=== PATIENT | female | born 1950 | race Caucasian/White ===

== ENCOUNTER 2016-09-11 12:33 | Emergency (ER) | payer BC ==
[~2016-09-11] VITALS: Ht 160 cm; Wt 52.5 kg
[~2016-09-11 12:33] MED LIST: ARFO15NE IN; ATRINSX INH; B-COTAB18 PO; BUPR150T7 PO; CARV3.122 PO; CARV6.252 PO; CHLO12TA2 PO; FAMO20TA11 PO; IPRA1AER2 INH; LOSA1TAB38 PO; MONT1TAB5 PO; MULT-506 PO; OYST500T47 PO; PYRI100T4 PO; SIMV20TA2 PO; SPRIN/30 INH; VENL150C56 PO; VITAMIN B12 PO
[2016-09-11 12:45] VITALS: TEMP 36.9; Ht 160 cm; Wt 52.5 kg
[2016-09-11] MEDS ORDERED: ALBUT/IPRATROP 3MG/0.5MG NEB 3 ML VIAL INH STA ×2 (13:54→15:02)
--- NOTE | 2016-09-11 14:08 | DIAGNOSTIC IMAGING REPORT ---
CHEST ONE VIEW PORTABLE CLINICAL HISTORY: Shortness of breath, weakness. COMPARISON STUDY: 03/14/2016 FINDINGS: The heart is normal in size. There is a left subclavian pacer/defibrillator present. There is no failure. There is no focal pulmonary consolidation. There are no pleural effusions.[ IMPRESSION: No active disease in the chest. Electronically signed by: Kvng Bess M.D. 09/11/2016 2:07 PM Dictated Date/Time: 09/11/2016 2:06 PM
[2016-09-11] MEDS ORDERED: FLUT0.15 NAE (14:21)
[2016-09-11] MEDS ORDERED: CYAN100020 PO (14:21)
[2016-09-11 14:39] VITALS: O2SAT 97
[2016-09-11 14:50] LABS: BASO % 0.1 %; BASO ABS # 0.01 K/uL (0-0.2); COMPLETE YES; EOS % 0.2 %; HEMATOCRIT 45.6 % (37-47); IG% 0.4 %; LYMPH % 7.2 %; LYMPH ABS # 0.68 K/uL (1.2-3.4); MEAN CORPUSCULAR HEMOGLOBIN 33.8 pg (25-34); MEAN CORPUSCULAR HGB CONC 34.9 g/dl (32-36); MEAN PLATELET VOLUME 9.8 fL (7.4-10.4); MONO % 1.9 %; NEUT % 90.2 %; PLATELET COUNT 288 K/uL (130-400); WHITE BLOOD COUNT 9.46 K/uL (4.8-10.8)
--- NOTE | 2016-09-11 14:57 | EMERGENCY ROOM VISIT NOTE ---
History First contact with patient: 14:23 Chief Complaint: RESPIRATORY PROBLEMS Stated Complaint: BREATHING PROBLEMS, WEAKNESS, SENT BY History of Present Illness The patient is a 66 year old female who presents to the Emergency Room with COPD and cardiomyopathy who presents with worsening shortness of breath despite being on steroids for COPD exacerbation. She reports her symptoms started prior to 09/06 and she went to see her PCP on the , who prescribed her a 16 day prednisone taper starting at 40mg and Levaquin. She is a week into her therapy and noticed her breathing still doesn't feel right. She is not wheezing and is not short of breath at rest, but when she moves around she feels worse. She had previously been on Brovana, then stopped it and now restarted it about 2 days ago. She denies any chest pain. Review of Systems See HPI for pertinent positives & negatives. A total of 10 systems reviewed and were otherwise negative. Past Medical/Surgical History Medical Problems: (1) Cardiomyopathy (2) Colitis, acute (3) COPD (chronic obstructive pulmonary disease) (4) Hematochezia (5) Hyperlipidemia (6) Neurosurgical procedure (7) Pneumonia (8) Sinusitis Surgical Problems: (1) Hx of appendectomy (2) S/P ICD (internal cardiac defibrillator) procedure Family History Cancer FATHER FH: COPD (chronic obstructive pulmonary disease) SISTER FH: cancer FH: heart disease BROTHER SISTER SISTER FH: kidney disease MOTHER Social History Smoking Status: Former Smoker Marital Status: Housing Status: lives with family Occupation Status: employed Current/Historical Medications Scheduled Amoxicillin & Pot Clavulanate (Augmentin 875-125 mg), 1 TAB PO BID Arformoterol Tartrate (Brovana), 15 MCG IN BID B-Complex Vitamins (Vitamin B Complex), 1 TAB PO QAM Bupropion Hcl (Wellbutrin Sr), 150 MG PO QAM Chlorpheniramine Maleate (Chlor-Trimeton Allergy), 1 TAB PO QAM Cyanocobalamin (Vitamin B12), 2,500 MCG PO DAILY Famotidine (Pepcid), 20 MG PO HS Fluticasone Propionate (Nasal) (Flonase Allergy Relief), 1 SPRAY ROXY BID Ipratropium [place] (Atrovent 0.02% Soln), 1 DOSE INH BID Losartan Potassium (Cozaar), 100 MG PO HS Montelukast Sodium (Montelukast Sodium), 10 MG PO DAILY AFTERNOON Multivitamin (Multivitamin), 1 TAB PO QPM Oyster Shell (Calcium), 1 TAB PO QAM Pyridoxine (Vitamin B6), 100 MG PO QPM Simvastatin (Zocor), 20 MG PO QPM Tiotropium [place] (Spiriva Handihaler), 1 CAP INH DAILY AFTERNOON Venlafaxine Hcl (Effexor Extended Rel), 150 MG PO QAM Scheduled PRN Ipratropium-Albuterol (Combivent Respimat), 1 PUFFS INH QID PRN for Shortness of Breath Allergies Coded Allergies: Galantamine (Verified Allergy, Unknown, "WENT IN TO SHOCK", 09/11/16) Midazolam (Verified Adverse Reaction, Intermediate, confusion WITH HIGH DOSE AND DECREASED BP, 09/11/16) over 4 ml pt confused for a week after Moxifloxacin (Verified Adverse Reaction, Mild, DIZZY, NAUSEA, 09/11/16) Physical Exam Vital Signs Date Time Temp Pulse Resp B/P Pulse Ox O2 Delivery O2 Flow Rate FiO2 09/11/16 16:27 85 18 139/58 96 Room Air 09/11/16 15:29 83 18 148/59 100 Room Air 09/11/16 14:39 97 Room Air 09/11/16 14:00 86 09/11/16 13:53 85 21 125/62 97 Room Air 09/11/16 13:52 97 Room Air 09/11/16 12:49 95 Room Air 09/11/16 12:45 36.9 81 18 119/68 95 Room Air Physical Exam GENERAL: Awake, alert, well-appearing, in no acute distress HENT: Normocephalic, atraumatic. Oropharynx unremarkable. EYES: Normal conjunctiva. Sclera non-icteric. NECK: Supple. No nuchal rigidity. FROM. No JVD. RESPIRATORY: Clear to auscultation. No wheeze, crackles, or rales. CARDIAC: Regular rate, normal rhythm. Extremities warm and well perfused. Pulses equal. ABDOMEN: Soft, non-distended. No tenderness to palpation. No rebound or guarding. No masses. RECTAL: Deferred. MUSCULOSKELETAL: Chest examination reveals no tenderness. The back is symmetrical on inspection without obvious abnormality. There is no CVA tenderness to palpation. No joint edema. LOWER EXTREMITIES: Calves are equal size bilaterally and non-tender. No edema. No discoloration. NEURO: Normal sensorium. No sensory or motor deficits noted. SKIN: No rash or jaundice noted. Medical Decision & Procedures Laboratory Results 09/11/16 14:30 Red Blood Count 4.70, Mean Corpuscular Volume 97.0, Mean Corpuscular Hemoglobin 33.8, Mean Corpuscular Hemoglobin Concent 34.9, Mean Platelet Volume 9.8, Neutrophils (%) (Auto) 90.2, Lymphocytes (%) (Auto) 7.2, Monocytes (%) (Auto) 1.9, Eosinophils (%) (Auto) 0.2, Basophils (%) (Auto) 0.1, Neutrophils # (Auto) 8.53, Lymphocytes # (Auto) 0.68, Monocytes # (Auto) 0.18, Eosinophils # (Auto) 0.02, Basophils # (Auto) 0.01 09/11/16 14:30 Test 09/11/16 14:30 09/11/16 14:37 White Blood Count 9.46 K/uL (4.8-10.8) Red Blood Count 4.70 M/uL (4.2-5.4) Hemoglobin 15.9 g/dL (12.0-16.0) Hematocrit 45.6 % (37-47) Mean Corpuscular Volume 97.0 fL (80-100) Mean Corpuscular Hemoglobin 33.8 pg (25-34) Mean Corpuscular Hemoglobin Concent 34.9 g/dl (32-36) Platelet Count 288 K/uL (130-400) Mean Platelet Volume 9.8 fL (7.4-10.4) Neutrophils (%) (Auto) 90.2 % Lymphocytes (%) (Auto) 7.2 % Monocytes (%) (Auto) 1.9 % Eosinophils (%) (Auto) 0.2 % Basophils (%) (Auto) 0.1 % Neutrophils # (Auto) 8.53 K/uL (1.4-6.5) Lymphocytes # (Auto) 0.68 K/uL (1.2-3.4) Monocytes # (Auto) 0.18 K/uL (0.11-0.59) Eosinophils # (Auto) 0.02 K/uL (0-0.5) Basophils # (Auto) 0.01 K/uL (0-0.2) RDW Standard Deviation 48.0 fL (36.4-46.3) RDW Coefficient of Variation 13.3 % (11.5-14.5) Immature Granulocyte % (Auto) 0.4 % Immature Granulocyte # (Auto) 0.04 K/uL (0.00-0.02) Prothrombin Time 11.3 SECONDS (9.0-12.0) Prothromb Time International Ratio 1.1 (0.9-1.1) Activated Partial Thromboplast Time 23.4 SECONDS (21.0-31.0) Partial Thromboplastin Ratio 0.9 Anion Gap 9.0 mmol/L (3-11) Est Creatinine Clear Calc Drug Dose 61.8 ml/min Estimated GFR () 99.7 Estimated GFR (Non- 86.1 BUN/Creatinine Ratio 12.4 (10-20) Calcium Level 10.6 mg/dl (8.5-10.1) Total Bilirubin 0.3 mg/dl (0.2-1) Aspartate Amino Transf (AST/SGOT) 21 U/L (15-37) Alanine Aminotransferase (ALT/SGPT) 28 U/L (12-78) Alkaline Phosphatase 56 U/L (45-117) Total Creatine Kinase 33 U/L (26-192) Creatine Kinase MB 1.4 ng/ml (0.5-3.6) Creatine Kinase MB Ratio 4.2 (0-3.0) Troponin I < 0.015 ng/ml (0-0.045) Total Protein 7.4 gm/dl (6.4-8.2) Albumin 3.9 gm/dl (3.4-5.0) Globulin 3.5 gm/dl (2.5-4.0) Albumin/Globulin Ratio 1.1 (0.9-2) Bedside Troponin I 0.000 ng/ml (0-0.045) Medications Administered Medications (Trade) Dose Ordered Sig/Saige Route Start Time Stop Time Status Last Admin Dose Admin Methylprednisolone Sodium Succinate (Solu-Medrol IV) 125 mg NOW STAT IV 09/11/16 15:02 09/11/16 15:03 DC 09/11/16 15:19 125 MG Albuterol/ Ipratropium (Duoneb) 3 ml ONE STAT INH 09/11/16 15:02 09/11/16 15:03 DC 09/11/16 15:20 3 ML ED Course 2:34PM: I evaluated the patient in room A12. A complete history and physical were performed. 3:00PM: I called her Machine Cutter's office and discussed the case with Dalton Lara PA-C. He recommended giving her a Duoneb, Solumedrol 125mg IV, continuing her PO steroids after that, and her to follow up in the office in 1 week. 4:20PM: The patient was discharged in good condition home. Medical Decision 66 yo F with chronic COPD and cardiomyopathy who presents with shortness of breath. Differential includes: pneumonia, silent micro-aspirations, mucus plugging, pulmonary edema, or bronchospasm. She did report her symptoms felt "different" with a new type of right sided chest pain. For this reason a CT was completed to evaluate for PE. She had an IV placed and labs drawn. Her CXR was normal. Her labwork was unremarkable. She felt better after Solumedrol and Duoneb. She reported she has previously been resistant to Levaquin in the past so her antibiotic was changed to Augmentin. She was discharged home in good condition with followup with Pulmonology within the week. Impression Primary Impression: Shortness of breath Departure Information Dispostion Home / Self-Care Condition GOOD Prescriptions Amoxicillin & Pot Clavulanate (Augmentin 875-125 mg) 1 Tab Tab 1 TAB PO BID for 7 Days, #14 TAB Prov: Courtney Elena MD 09/11/16 Referrals Lakisha Kothari DO (PCP) Patient Instructions My [facility]
[2016-09-11 15:02] LABS: INR 1.1 (0.9-1.1); PARTIAL THROMBOPLASTIN RATIO 0.9; PROTHROMBIN TIME (PATIENT) 11.3 SECONDS (9.0-12.0)
[2016-09-11] MEDS ORDERED: METHYLPREDNISOLONE 125 MG VIAL IV STA (15:02)
[2016-09-11 15:13] LABS: BUN/CREATININE RATIO 12.4 (10-20); CALCIUM 10.6 mg/dl (8.5-10.1); CREATININE 0.72 mg/dl (0.60-1.20); POTASSIUM 3.9 mmol/L (3.5-5.1)
[2016-09-11 15:15] LABS: ALB/GLOB RATIO 1.1 (0.9-2)
[2016-09-11 15:17] LABS: CKMB/CK RATIO 4.2 (0-3.0)
[2016-09-11] MEDS ORDERED: OPTIRAY 320 IV PRN (16:00)
[2016-09-11 16:27] VITALS: BP 139/58; PULSE 85; O2SAT 96
--- NOTE | 2016-09-11 16:32 | DIAGNOSTIC IMAGING REPORT ---
CT ANGIOGRAM OF THE CHEST CLINICAL HISTORY: Right-sided chest pain. Shortness of breath. COMPARISON STUDY: CT scan dated 04/03/2016, chest x-ray dated 09/11/2006 TECHNIQUE: Following the IV administration of 82 mL of Optiray-320, CT angiogram of the thorax was performed from the thoracic inlet to the lung bases utilizing the pulmonary embolus protocol. Images are reviewed in the axial, sagittal, and coronal planes. IV contrast was administered without complication. MIP imaging was performed. CT DOSE: 197.97 mGy.cm FINDINGS: There is a multinodular thyroid gland. The largest nodule measures 14 mm. There are left renal hypodensities, likely represent cysts. The largest measures 24 mm. No pathologically enlarged axillary mediastinal or hilar lymph nodes were visualized. There was no evidence of thoracic aortic dilatation. There were no pulmonary artery filling defects to indicate acute pulmonary embolism. No pleural effusions are visualized. There is pulmonary emphysema. There is no focal pulmonary consolidation. There is right upper lobe scarring. IMPRESSION: 1. No CT evidence of acute pulmonary embolism 2. Emphysema 3. No evidence of focal pulmonary consolidation Electronically signed by: Kvng Bess M.D. 09/11/2016 4:31 PM Dictated Date/Time: 09/11/2016 4:26 PM
[2016-09-11] MEDS ORDERED: AMOX875T PO (16:47)
--- NOTE | 2016-09-12 23:15 | EMERGENCY ROOM VISIT NOTE ---
ED Visit Note First contact with patient: 14:23 I have personally evaluated this patient examined her and reviewed the pertinent labs and data. I have discussed the case with the resident physician mri assistant and agree with the plan. Please refer to the PA note This patient comes in after having continuing shortness of breath. She's been placed on steroids and has chronic inhalers. She looks well on my exam and has good air movement she appears in no respiratory distress. She did receive an nebulized treatment and is feeling comfortable. She's not hypoxemic. Chest x- ray does not suggest congestive heart failure, pneumonia, pneumothorax. Her EKG looks nonischemic. She has no elevated white count or anything to suggest sepsis. She has no electrolyte or metabolic abnormalities. We did do a chest CT after I discussed the risk and benefits with the patient and she has no evidence of PE. The resident has discussed the case with her vice president process as well who has given recommendations and the patient will be discharged home with follow-up closely. The patient and her are happy with the plan and she will be discharged to home.
[2016-12-06] MEDS ORDERED: CARV6.252 PO (11:30)
[2016-12-06] MEDS ORDERED: MUCINEX PO (11:30)
[2016-12-06] MEDS ORDERED: PRED10TA PO (11:30)
[2016-12-06] MEDS ORDERED: ERYT250T PO (11:30)
[2016-12-06] MEDS ORDERED: CALC600T9 PO (11:30)
[2016-12-06] MEDS ORDERED: ATRINSX PO (11:30)
[2016-12-06] MEDS ORDERED: CARV3.12 PO (11:30)
[2017-02-18] MEDS ORDERED: SIMV20TA2 PO (08:59)
[2017-02-18] MEDS ORDERED: GUAI1TAB69 PO (08:59)
[2017-02-18] MEDS ORDERED: PRED-301 PO (08:59)
[2017-02-18] MEDS ORDERED: MOME220A INH (08:59)
[2017-02-25] MEDS ORDERED: NICO4GUM7 PO (12:13)
== END 2016-09-11 17:02 | disposition home or self-care (01) ==
LOC: C.EDB 12:34 → C.EDA 17:02
DX: R06.02 Shortness of breath (principal); J44.9 Chronic obstructive pulmonary disease, unspecified; I42.9 Cardiomyopathy, unspecified; E78.5 Hyperlipidemia, unspecified; Z95.810 Presence of automatic (implantable) cardiac defibrillator; Z79.899 Other long term (current) drug therapy; Z98.890 Other specified postprocedural states; Z87.891 Personal history of nicotine dependence; Z88.8 Allergy status to other drugs, medicaments and biological substances; Z80.9 Family history of malignant neoplasm, unspecified; Z82.49 Family history of ischemic heart disease and other diseases of the circulatory system; Z84.1 Family history of disorders of kidney and ureter

== ENCOUNTER 2016-10-04 08:30 | Inpatient (IN) | payer BC, OTHER ==
[2016-10-04] VITALS (10 sets, daily range): BP systolic 121–139; BP diastolic 53–81; PULSE 75–87; TEMP 36.1–36.7; O2SAT 93–100; Ht 160 cm; Wt 51.3 kg
[~2016-10-04] VITALS: Ht 160 cm; Wt 51.3 kg
[~2016-10-04 08:30] MED LIST changes: -CARV3.122 PO; -CARV6.252 PO; +CYAN100020 PO; +FLUT0.15 NAE; -VITAMIN B12 PO
--- NOTE | 2016-10-04 09:59 | History & Physical Bridge Note ---
H&P Re-Evaluation Bridge Note: I have examined the patient, reviewed the History & Physical and in the interval since the performance of the History & Physical I have noted the following changes of clinical significance: No changes noted
--- NOTE | 2016-10-04 09:59 | Procedure Note ---
Pre-Mod Sedation Assessment General Date of Moderate Sedation: Oct 04, 2016. Vital Signs: Vital Signs Past 12 Hours Date Time Temp Pulse Resp B/P Pulse Ox O2 Delivery O2 Flow Rate FiO2 10/04/16 09:25 36.7 82 24 123/72 96 Room Air Pre-Sedation Airway Assessment Oral Cavity: Capped Teeth Smoking Status: Former Smoker Mallampati Classification: Class I ASA Classification: Class II Procedure Planning Yes Notes The planned sedation has been discussed with the patient and consent obtained. I have identified the patient, determined the appropriateness of sedation and have assessed the patient immediately prior to the procedure. All medicine(s) and interventions are by my order.
[2016-10-04] MEDS ORDERED: LISI20TA3 PO (10:02)
[2016-10-04] MEDS ORDERED: CARV3.122 PO (10:04)
[2016-10-04] MEDS ORDERED: DEXTROSE 5% 1000ML 1,000 ML IV SCH (10:57)
--- NOTE | 2016-10-04 11:52 | PULMONARY CONSULTATION ---
DATE OF CONSULTATION: 10/04/2016 DATE OF CONSULTATION: 10/04/2016 at 1000. REASON FOR CONSULTATION: COPD exacerbation/bronchoscopy with bronchoalveolar lavage. HISTORY OF PRESENT ILLNESS: A 66-year-old white female well known to me with severe COPD and a history of chronic rhinosinusitis was scheduled for elective bronchoscopic procedure today to be performed by myself as scheduled by Isaias Lara/physician topographical field assistant from the [place] [facility]. The patient was evaluated by myself prior to the procedure and felt to be too bronchospastic to undergo the procedure today and rather after lengthy discussion with both she and her who was in attendance decision was made to admit her for vigorous pulmonary toilet and possible bronchoscopic intervention with bronchoalveolar lavage on Friday after several days of intense medical therapy. The patient has a history of chronic rhinosinusitis having undergone bilateral maxillary antrostomies and bilateral anterior ethmoidectomies with septoplasty and bilateral inferior turbinate TURP outfracture and turbinoplasty on 05/01/[address] Chintan Silveira. The patient has not done well over the past several months and in fact came off a 14-day course of prednisone and was kept off of her prednisone prior to this procedure. She was experiencing 3-4 word dyspnea and could not walk even on a level plane more than 10-20 feet without severe dyspnea. 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 She uses her nebulizer at home routinely along with Combivent metered dose inhaler and her vest. She has received IVIG therapy in the past as well. Her last bronchoscopic intervention was performed by me on 08/17/2015 which was carried out uneventfully. Her primary care physician is Dr. Lakisha Kothari. Review of the records from the office reveals that she has been on prednisone and antibiotic therapy, multiple courses during the course of this year and has felt ill since May 2014. She has a history of a ischemic colitis and implantable cardioverter/defibrillator and a history of cerebral aneurysm repair as well as a diagnosis of hemochromatosis. She has severe reflux, celiac artery stenosis in addition. There is a history of allergic bronchopulmonary aspergillosis and previous infection secondary to Pseudomonas aeruginosa. She does have a long-standing but previous smoking history. Last pneumococcal vaccine was in December of 2014. She gets annual influenza vaccines. She was last seen in the clinic on 09/17/2016 and was given an additional prescription for Brovana solution 15 mcg by inhalation b.i.d. CURRENT MEDICATIONS: Include carvedilol, total of 9.375 mg p.o. b.i.d., lisinopril 20 mg p.o. b.i.d., simvastatin 20 mg daily, nebulizer with Brovana b.i.d., Combivent Respimat 20/100 mcg 1 puff q.i.d. p.r.n., nebulizer with DuoNeb solution every 4 hours p.r.n., BuSpar ER 150 mg b.i.d., venlafaxine HCL ER 150 mg daily, B vitamins daily, Centrum daily. ALLERGIES: GADOLINIUM, AVELOX, VERSED SOLUTION. PHYSICAL EXAMINATION: GENERAL: Reveals a well-developed, well-nourished white female appearing somewhat anxious at rest. CURRENT VITAL SIGNS: Heart rate 88 and regular, respiratory rate 20, blood pressure 160/90. She is afebrile. O2 sat on 2 liters 92%. SKIN: Warm and dry. HEAD, EYES, EARS, NOSE, AND THROAT: Atraumatic, normocephalic, PERRLA, EOMI. Conjunctivae pink. Sclerae nonicteric. Fundi benign. Tympanic membranes within normal limits. Pharyngeal exam intact. NECK: Veins not distended at 45 degrees. LUNGS: Coarse wheezes diffusely with marked prolongation of the expiratory phase of breathing. No evidence for consolidation. CARDIAC EXAMINATION: Regular rhythm. I do not appreciate a gallop. ABDOMEN: Soft, scaphoid. No evidence for hepatosplenomegaly. EXTREMITIES: Trace pedal edema. No clubbing or peripheral cyanosis. NEUROLOGIC: Intact. No lateralizing signs. LABORATORY DATA: CT scan of the chest performed on 09/11/[address] angiogram showed no evidence of pulmonary thromboembolic disease, severe pulmonary emphysema was seen with no evidence for focal pulmonary consolidation. Previous cultures, sputum in March 2016 grew out normal yuniel. Bronchial washings from 08/12/2014 nondiagnostic for pathogen. On 12/13/2010 Pseudomonas aeruginosa and Aspergillus species, not Fumigatus on 05/25/2009 along with Citrobacter koseri. Other laboratory data: H\T\H 15.9 and 45.6, 0.02 eosinophils. ABGs las done in 2009 showed pO2 of 60 on room air, pCO2 37, pH 7.49. Most recent PT, PT/INR within normal limits, PRP within normal limits. Troponin negative during ER visit on 09/11/2016. IgG level on 11/23/2015 acceptable and 807. In November of 2015 the patient's antibiotic response to pneumococcal vaccination was adequate. In March 2016 sinus x-rays showed some minimal disease but the sinuses appeared patent, but no obvious air fluid level. 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 The patient was to be admitted to either medical floor telemetry under the care of the hospitalist service. I spoke with Dr. Villanueva who will admit the patient. I will see patient in consultation. I ask that she receive aerosolized bronchodilator around the clock along with high dose IV Solu-Medrol with careful attention to glucose monitoring, broad spectrum antibiotics may be utilized and we will schedule her for Friday for bronchoscopy. Hopefully she would tolerate the procedure better at that point in time than she would today if we had proceeded. I reviewed the risks and benefits of bronchoalveolar lavage to her including the possibility of patient developing acute respiratory failure and need for intubation and mechanical ventilator assistance. Hopefully, that can be avoided with Mondays procedure. OWSALDO
[2016-10-04] MEDS ORDERED: ACETAMINOPHEN 325 MG TAB PO PRN (12:00)
[2016-10-04] MEDS ORDERED: POLYETHYLENE (MIRALAX) 17 GM PACK PO PRN (12:00)
[2016-10-04] MEDS ORDERED: IPRATROPIUM BROMIDE/ALBUTEROL respimat INH INH PRN (12:00)
[2016-10-04] MEDS ORDERED: ONDANSETRON INJ 2 MG/ML 2 ML VIAL IV PRN (12:00)
--- NOTE | 2016-10-04 12:21 | History and Physical ---
History & Physical Date & Time of Service: Oct 04, 2016 at 11:52 Chief Complaint: Copd, Shortness Of Breath Primary Care Physician: Lakisha Kothari, History of Present Illness Source: patient, family This is a 58-year-old female with past medical history of COPD, cardiomyopathy s /p pacemaker and ICD placement, history of cerebral aneurysm coiled and clipped in 2005, hypertension, GERD, ischemic colitis, history of aspergillosis pneumonia in 2005. The patient follows with thoracic medicine as an outpatient with Dr. Lara she was scheduled for an in and out bronchoscopy today with Dr. Magana, however the patient has been increasingly short of breath, has a cough with production which is yellow/green, and breath sounds were tight prior to scheduled procedure so it was not completed. Dr. Magana and has requested the patient be admitted over the weekend to optimize her for bronchoscopy on Friday. The is present with the patient at bedside. reports that issues with his 's breathing has been ongoing process for the last 8 years. Worsening in the past 4 years with on and off upper respiratory infections where she's been treated with antibiotics and prednisone tapers. Most recently the patient was placed on prednisone taper with for 16 days which finished on 05/30, along with initially being on Levaquin. Levaquin did not seem to improve the patient's symptoms so was switched to amoxicillin. The patient notes that she has been having coughing fits since finishing the prednisone taper. On Friday, 10/01, the patient took 20 mg prednisone that she had left over, and reports a significant improvement in her breathing the following day. Patient is not on chronic prednisone or antibiotics. The past 3 days she has not been doing extra physical activity or been exerting herself. She always notices breathing is worse in the morning when she wakes up. Patient states that currently her breathing seems to be improved, and is wearing 2L O2. She admits to sometimes feeling lightheaded after severe coughing fit, and that she also occasionally nauseous from extreme coughing. She denies any chest pain,flutter or palpitation. She is complaining of mild headache currently. Past Medical/Surgical History Medical Problems: (1) Cardiomyopathy Status: Chronic (2) COPD (chronic obstructive pulmonary disease) Status: Chronic (3) Hyperlipidemia Status: Chronic (4) Neurosurgical procedure Status: Resolved (5) Pneumonia Status: Resolved (6) Sinusitis Status: Resolved Surgical Problems: (1) Hx of appendectomy Status: Resolved (2) S/P ICD (internal cardiac defibrillator) procedure Status: Resolved Family History Cancer FATHER FH: COPD (chronic obstructive pulmonary disease) SISTER FH: cancer FH: heart disease BROTHER SISTER SISTER FH: kidney disease MOTHER Social History Smoking Status: Former Smoker (30 years 2 packs a day, quit 1997) Smokeless Tobacco Use: No Alcohol Use: occasionally Drug Use: none Marital Status: Housing status: lives with family 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, 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) Immunizations History of Influenza Vaccine: Yes Influenza Vaccine Date: Apr 17, 2009 History of Tetanus Vaccine?: Yes History of Pneumococcal: Yes Pneumococcal Date: Apr 17, 2009 History of Hepatitis B Vaccine: No Multi-Drug Resistant Organisms History of MDRO: No Allergies Coded Allergies: Galantamine (Verified Allergy, Unknown, "WENT IN TO SHOCK", 10/04/16) Midazolam (Verified Adverse Reaction, Intermediate, confusion WITH HIGH DOSE AND DECREASED BP, 10/04/16) over 4 ml pt confused for a week after Moxifloxacin (Verified Adverse Reaction, Mild, DIZZY, NAUSEA, 10/04/16) Home Medications Scheduled Arformoterol Tartrate (Brovana), 15 MCG IN BID B-Complex Vitamins (Vitamin B Complex), 1 TAB PO QAM Bupropion Hcl (Wellbutrin Sr), 150 MG PO QAM Carvedilol (Coreg), 9.375 MG PO BID Chlorpheniramine Maleate (Chlor-Trimeton Allergy), 1 TAB PO QAM Cyanocobalamin (Vitamin B12), 2,500 MCG PO DAILY Lisinopril (Prinivil), 20 MG PO BID Multivitamin (Multivitamin), 1 TAB PO QPM Oyster Shell (Calcium), 1 TAB PO QAM Pyridoxine (Vitamin B6), 100 MG PO QPM Simvastatin (Zocor), 20 MG PO QPM Venlafaxine Hcl (Effexor Extended Rel), 150 MG PO QAM Scheduled PRN Ipratropium-Albuterol (Combivent Respimat), 1 PUFFS INH QID PRN for Shortness of Breath Review of Systems Constitutional: No chills, No fever, No sweats Eyes: No diplopia, No worsening of vision ENT: No sore throat, No trouble swallowing Respiratory: + cough, + dyspnea on exertion, + shortness of breath, + sputum, + wheezing, No dyspnea at rest, No hemoptysis Cardiovascular: No chest pain, No palpitations Abdomen: No constipation, No diarrhea, No nausea, No pain, No vomiting Musculoskeletal: No calf pain, No joint pain, No swelling Genitourinary - Female: No dysuria, No hematuria Neurologic: No balance problems, No numbness/tingling, No vertigo, No weakness Psychiatric: + depression symptoms (well-controlled), No anxiety Endocrine: No fatigue Integumentary: No itch, No rash Physical Exam Vital Signs Date Time Temp Pulse Resp B/P Pulse Ox O2 Delivery O2 Flow Rate FiO2 10/04/16 09:25 36.7 82 24 123/72 96 Room Air General Appearance: WD/WN, no apparent distress, + thin, + pertinent finding ( appears much younger than stated age) Head: normocephalic, atraumatic Eyes: PERRL, EOMI ENT: hearing grossly normal, pharynx normal Neck: supple, no JVD Respiratory/Chest: no respiratory distress, no accessory muscle use, + pertinent finding (wearing 2 L O2 via NC, +expiratory wheeze throughout, coarse breath sounds, worse on the left compared to the right. ) Cardiovascular: regular rate, rhythm, no JVD, no murmur, normal peripheral pulses Abdomen/GI: normal bowel sounds, non tender, soft Back: normal inspection Extremities/Musculoskelatal: normal inspection, no calf tenderness, no pedal edema Neurologic/Psych: alert, normal reflexes, oriented x 3 Skin: normal color, warm/dry Diagnostics Laboratory Results Results Past 24 Hours Test 10/04/16 09:28 Range/Units Bedside Glucose 84 70-90 mg/dl Impression Assessment and Plan This is a 58-year-old female with past medical history of COPD, cardiomyopathy s /p pacemaker and ICD placement, history of cerebral aneurysm coiled and clipped in 2005, hypertension, GERD, ischemic colitis, history of aspergillosis pneumonia in 2006. The patient follows with thoracic medicine as an outpatient with Dr. Lara she was scheduled for an in and out bronchoscopy today with Dr. Magana, however the patient has been increasingly short of breath, has a cough with production which is yellow/green, and breath sounds were tight prior to scheduled procedure so it was not completed. Dr. Magana and has requested the patient be admitted over the weekend to optimize her for bronchoscopy on Friday. COPD - Admitted to telemetry - continue home inhalers: Combivent Respimat 20-100 mcg/ACT 1 puff BID, Atrovent 1 inh BID, Brovana 15 mcg/2mL)and has duonebs every Q2H nebulizers when necessary - We'll start the patient on amoxicillin 500 TID for prophylaxis against infectious source - IV steroids with Solu-Medrol 30 mg Q8H - Does not require supplemental O2 at baseline - Plan for bronchoscopy on Friday, will need to be made NPO on Friday night - Consulted pulmonary medicine. Follows with Dr. Lara as an outpatient Cardiomyopathy Pacemaker/ICD placement Hypertension - Continue carvedilol 9.375 mg BID, and lisinopril 20 mg BID - Continue statin therapy with simvastatin 20 my QD Hx of cerebral aneurysm. - Aneurysm was completed in 2005 the aneurysm was coiled and clipped at [facility]. Ischemic colitis - admitted in May 2016 -resolved at this time GERD - Patient is not on antacid, will order Protonix 40 mg daily with IV steroids ordered as above for GI ppx. DVT ppx: Teds, SCDs, OOB ad nima CODE STATUS: Full Code Disposition: Patient from home, lives with , plan for bronchoscopy on Friday, NPO on Friday night Level of Care Telemetry Advanced Directives Existing Advance Directive: No Existing Living Will: No Existing Power of Registered Nurse Ambulatory: No Existing Health Care Proxy: No Resuscitation Status FULL RESUSCITATION VTE Prophylaxis VTE Risk Assessment Done? Y/N: Yes Risk Level: Very Low Given or contraindicated: T.E.DYanira Stockings, SCD's
[2016-10-04] MEDS: ALBUT/IPRATROP 3MG/0.5MG NEB 3 ML VIAL INH PRN (14:11)
[2016-10-04] MEDS ORDERED: AMOXICILLIN 500 MG CAP PO SCH (14:30)
[2016-10-04 15:37] LABS: BASO % 0.4 %; BASO ABS # 0.03 K/uL (0-0.2); COMPLETE YES; HEMATOCRIT 42.6 % (37-47); IG% 0.1 %; LYMPH % 24.3 %; LYMPH ABS # 1.75 K/uL (1.2-3.4); MEAN CELL VOLUME 96.8 fL (80-100); MEAN CORPUSCULAR HEMOGLOBIN 34.1 pg (25-34); MEAN CORPUSCULAR HGB CONC 35.2 g/dl (32-36); MEAN PLATELET VOLUME 9.9 fL (7.4-10.4); MONO % 8.9 %; NEUT % 56.3 %; PLATELET COUNT 245 K/uL (130-400); WHITE BLOOD COUNT 7.21 K/uL (4.8-10.8)
[2016-10-04] MEDS: METHYLPREDNISOLONE IV 30 MG in SYRINGE 0 ML IV SCH ×2 (15:39→22:19)
[2016-10-04 16:00] LABS: BUN/CREATININE RATIO 14.2 (10-20); CALCIUM 8.9 mg/dl (8.5-10.1); CREATININE 0.71 mg/dl (0.60-1.20); POTASSIUM 3.8 mmol/L (3.5-5.1)
[2016-10-04] MEDS ORDERED: AZITHROMYCIN IV 500 MG in DEXTROSE 5% 250ML 250 ML IV ONE (17:00)
[2016-10-04] MEDS: CEFTRIAXONE SOD INJ 1 GM in DEXTROSE 5% ADD-VANTAGE 50ML 50 ML IV SCH (17:20)
[2016-10-04] MEDS: ARFORMOTEROL TART 15MCG/2ML VIAL INH SCH (19:25)
[2016-10-04] MEDS: MULTIVITAMIN TAB PO SCH (20:36)
[2016-10-04] MEDS: SIMVASTATIN 20 MG TAB PO SCH (20:36)
[2016-10-04] MEDS: PYRIDOXINE HCL 50 MG TAB PO SCH (20:36)
[2016-10-04] MEDS: CARVEDILOL 3.125 MG TAB PO SCH (20:37)
[2016-10-04] MEDS: LISINOPRIL 20 MG TAB PO SCH (20:37)
[2016-10-05] VITALS (11 sets, daily range): BP systolic 103–164; BP diastolic 67–75; PULSE 74–97; TEMP 36.5–36.7; O2SAT 94–98
[2016-10-05] MEDS: ALBUT/IPRATROP 3MG/0.5MG NEB 3 ML VIAL INH PRN (01:03)
[2016-10-05] MEDS: METHYLPREDNISOLONE IV 30 MG in SYRINGE 0 ML IV SCH (06:29)
--- NOTE | 2016-10-05 07:13 | PROGRESS NOTE ---
DATE: 10/05/2016 SUBJECTIVE: The patient is considerably improved since the time of admission. Her cough is much less in intensity and continues to produce minimal amounts of thick gold sputum. She has been scheduled for a bronchoscopy. Each time she has a bronchoscopy, her respiratory status improves. She does have a vibratory vest at home that she uses as well. She is not smoking. 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 Since admission over the last 18 hours or so, she is considerably improved. OBJECTIVE: VITAL SIGNS: Stable, blood pressure 109/71, oxygen saturation 94% on two liters and she is afebrile. Her weight is 53.5 kilograms. HEENT: Unremarkable. Posterior pharynx is normal with no thrush noted. No nodes were palpable. I could not palpate any thyroid nodules even though they are noted on her CT scan from 09/11/2016. Expansion of the thorax is very good with deep inspiration. HEART: Regular rate and rhythm. Second heart sound normal. No murmurs are heard. LUNGS: Clear with decreased breath sounds bilaterally. No crackles or rales are noted. No wheezing is noted. Forced expiratory maneuver is about 3-1/2 seconds with no wheezing. ABDOMEN: Soft and nontender. EXTREMITIES: She has no cyanosis, clubbing or edema. LABORATORY DATA: White count 7.2, hemoglobin 15, platelet count of 245,000 with an unremarkable differential. PRP is normal. CT of the chest revealed no evidence of any nodules. She had some nodules in the past. REVIEW OF SYSTEMS: thyroid nodules with a multinodular gland, left kidney cysts and changes consistent with emphysema with no consolidations or nodules noted. IMPRESSION: Chronic obstructive pulmonary disease with exacerbation. RECOMMENDATION: 1. At this point, I will continue with her present medications and increase her activity. We discussed being out of bed as much as possible and she understands. 2. Anti-reflux regimen. 3. Continue on the Brovana by nebulizer b.i.d. 4. I think the methylprednisolone could be changed to prednisone 40 mg daily with a taper fairly quickly over about a week to ten days. 5. Continue on the Combivent 4 times a day and q. 4 hours p.r.n. In the future, we may consider an inhaled corticosteroid as well such as Asmanex or Flovent, but apparently Dr. Waddington wants to hold those prior to the bronchoscopy. Overall, today she is stable. OSWALDO
[2016-10-05] MEDS: ARFORMOTEROL TART 15MCG/2ML VIAL INH SCH ×2 (07:53→19:53)
[2016-10-05] MEDS: BuPROPion SR 150 MG TABCR PO SCH (09:10)
[2016-10-05] MEDS: CYANOCOBALAMIN 500 MCG TAB (VIT B-12) PO SCH (09:10)
[2016-10-05] MEDS: VENLAFAXINE HCL XR 150 MG CAPXR PO SCH (09:11)
[2016-10-05] MEDS: PANTOprazole SOD 40 MG TAB PO SCH (09:11)
[2016-10-05] MEDS: VITAMIN B COMPLEX TAB PO SCH (09:11)
[2016-10-05] MEDS: LISINOPRIL 20 MG TAB PO SCH ×2 (09:11→20:28)
[2016-10-05] MEDS: CARVEDILOL 3.125 MG TAB PO SCH ×2 (09:18→20:27)
--- NOTE | 2016-10-05 12:53 | Progress Note ---
Subjective Date of Service: Oct 05, 2016. Subjective Pt evaluation today including: conversation w/ patient, physical exam, conversation w/ incident response consultant, review of inpatient medication list Pain: no pain PO Intake: adequate Voiding: no voiding problems breathing better today, nebulizers really helping ambulating without difficulty, eating well, no issues overnight discussed transfer to medical, she is excited appreciate note from pulmonology Problem List Medical Problems: (1) Colitis Status: Acute (2) GI bleed Status: Acute (3) Leukocytosis Status: Acute (4) Shortness of breath Status: Acute Review of Systems Respiratory: + cough, + dyspnea on exertion All Other Systems: Reviewed and Negative Medications Current Inpatient Medications Medications (Trade) Dose Ordered Sig/Saige Route Start Time Stop Time Status Last Admin Dose Admin Acetaminophen (Tylenol Tab) 650 mg Q4H PRN PO 10/04/16 12:00 11/03/16 11:59 10/04/16 12:24 650 MG Ondansetron HCl (Zofran Inj) 4 mg Q6H PRN IV 10/04/16 12:00 11/03/16 11:59 10/05/16 11:01 4 MG Polyethylene (Miralax Powder Packet) 17 gm DAILY PRN PO 10/04/16 12:00 11/03/16 11:59 Arformoterol Tartrate (Brovana 15MCG/ 2ML Neb Soln) 15 mcg BIDR INH 10/04/16 20:00 11/03/16 19:59 10/05/16 07:53 15 MCG Bupropion HCl (Wellbutrin-Sr Tab) 150 mg QAM PO 10/05/16 09:00 11/04/16 08:59 10/05/16 09:10 150 MG Carvedilol (Coreg Tab) 9.375 mg BID PO 10/04/16 21:00 11/03/16 20:59 10/05/16 09:18 9.375 MG Albuterol/ Ipratropium (Combivent Respimat Inh) 1 puffs QID PRN INH 10/04/16 12:00 11/03/16 11:59 Lisinopril (Zestril Tab) 20 mg BID PO 10/04/16 21:00 11/03/16 20:59 10/05/16 09:11 20 MG Multivitamins (Multivitamin Tab) 1 tab QPM PO 10/04/16 21:00 11/03/16 20:59 10/04/16 20:36 1 TAB Pyridoxine HCl (Vitamin B-6 Tab) 100 mg QPM PO 10/04/16 21:00 11/03/16 20:59 10/04/16 20:36 100 MG Simvastatin (Zocor Tab) 20 mg QPM PO 10/04/16 21:00 11/03/16 20:59 10/04/16 20:36 20 MG Venlafaxine HCl (effeXOR EXTENDED REL CAP) 150 mg QAM PO 10/05/16 09:00 11/04/16 08:59 10/05/16 09:11 150 MG Vitamin B Complex (Vitamin B Complex) 1 tab DAILY PO 10/05/16 09:00 11/04/16 08:59 10/05/16 09:11 1 TAB Miscellaneous Information (Order Awaiting Action) 1 ea QS N/A 10/04/16 16:00 11/03/16 15:59 Cyanocobalamin (Vitamin B-12 Tab) 2,500 mcg DAILY PO 10/05/16 09:00 11/04/16 08:59 10/05/16 09:10 2,500 MCG Albuterol/ Ipratropium (Duoneb) 3 ml Q2H PRN INH 10/04/16 12:00 11/03/16 11:59 10/05/16 01:03 3 ML Pantoprazole Sodium 40 mg 40 mg QAM PO 10/05/16 09:00 11/04/16 08:59 10/05/16 09:11 40 MG Ceftriaxone Sodium/Dextrose (Rocephin Inj/ Dextrose Add-[place] 50ML) 50 ml @ 100 mls/hr DAILY@1600 IV 10/04/16 16:15 10/11/16 16:14 10/04/16 17:20 100 MLS/HR Prednisone (PredniSONE TAB) 40 mg QAM PO 10/06/16 08:00 11/05/16 08:59 Objective Vital Signs Date Time Temp Pulse Resp B/P Pulse Ox O2 Delivery O2 Flow Rate FiO2 10/05/16 11:00 Nasal Cannula 1.0 10/05/16 10:22 36.6 81 14 98 2.0 10/05/16 08:09 81 14 98 Nasal Cannula 2.0 10/05/16 08:00 97 Nasal Cannula 2.0 10/05/16 07:42 36.6 76 19 113/75 96 10/05/16 04:04 36.5 78 19 109/71 94 Nasal Cannula 2.0 10/05/16 04:00 Nasal Cannula 10/05/16 01:03 80 16 96 Nasal Cannula 3.0 10/04/16 23:59 Nasal Cannula 10/04/16 23:08 36.5 75 21 139/65 98 Nasal Cannula 3.0 10/04/16 20:00 98 Nasal Cannula 2.0 10/04/16 19:26 87 16 100 Nasal Cannula 4.0 10/04/16 19:10 36.4 80 21 133/81 99 Nasal Cannula 4.0 10/04/16 16:05 97 Nasal Cannula 2.0 10/04/16 15:41 36.7 83 18 121/75 10/04/16 15:32 36.1 81 20 123/53 93 Nasal Cannula 4.0 10/04/16 14:10 84 16 98 Nasal Cannula 2.0 10/04/16 13:35 98 Nasal Cannula 2.0 Physical Exam General Appearance: WD/WN, no apparent distress Neck: supple, no adenopathy, no JVD, trachea midline Respiratory/Chest: chest non-tender, normal breath sounds, no respiratory distress, no accessory muscle use, + rhonchi (scattered, clear with cough) Cardiovascular: regular rate, rhythm, no edema, no gallop, no JVD, no murmur Abdomen: normal bowel sounds, non tender, soft, no organomegaly Extremities: normal range of motion, non-tender, normal inspection, no pedal edema, no calf tenderness, pelvis stable 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, no motor/sensory deficits, alert, normal mood/affect, oriented x 3 Skin: normal color, warm/dry, no rash Laboratory Results Last 24 Hours Test 10/04/16 15:21 White Blood Count 7.21 K/uL Red Blood Count 4.40 M/uL Hemoglobin 15.0 g/dL Hematocrit 42.6 % Mean Corpuscular Volume 96.8 fL Mean Corpuscular Hemoglobin 34.1 pg Mean Corpuscular Hemoglobin Concent 35.2 g/dl Platelet Count 245 K/uL Mean Platelet Volume 9.9 fL Neutrophils (%) (Auto) 56.3 % Lymphocytes (%) (Auto) 24.3 % Monocytes (%) (Auto) 8.9 % Eosinophils (%) (Auto) 10.0 % Basophils (%) (Auto) 0.4 % Neutrophils # (Auto) 4.06 K/uL Lymphocytes # (Auto) 1.75 K/uL Monocytes # (Auto) 0.64 K/uL Eosinophils # (Auto) 0.72 K/uL Basophils # (Auto) 0.03 K/uL RDW Standard Deviation 47.0 fL RDW Coefficient of Variation 13.3 % Immature Granulocyte % (Auto) 0.1 % Immature Granulocyte # (Auto) 0.01 K/uL Sodium Level 143 mmol/L Potassium Level 3.8 mmol/L Chloride Level 106 mmol/L Carbon Dioxide Level 30 mmol/L Anion Gap 7.0 mmol/L Blood Urea Nitrogen 10 mg/dl Creatinine 0.71 mg/dl Est Creatinine Clear Calc Drug Dose 62.7 ml/min Estimated GFR () 101.4 Estimated GFR (Non- 87.5 BUN/Creatinine Ratio 14.2 Random Glucose 98 mg/dl Calcium Level 8.9 mg/dl Assessment and Plan This is a 58-year-old female with past medical history of COPD, cardiomyopathy s /p pacemaker and ICD placement, history of cerebral aneurysm coiled and clipped in 2005, hypertension, GERD, ischemic colitis, history of aspergillosis pneumonia in 2005. The patient follows with thoracic medicine as an outpatient with Dr. Lara she was scheduled for an in and out bronchoscopy today with Dr. Magana, however the patient has been increasingly short of breath, has a cough with production which is yellow/green, and breath sounds were tight prior to scheduled procedure so it was not completed. Dr. Magana and has requested the patient be admitted over the weekend to optimize her for bronchoscopy on Friday. COPD with exacerbation improving quickly, change to Prednisone 40mg today, continue Rocephin/ Zithromax for now continue home inhalers: Combivent Respimat 20-100 mcg/ACT 1 puff BID, Atrovent 1 inh BID, Brovana 15 mcg/2mL)and has duonebs every Q2H nebulizers when necessary weaning oxygen, to 1L this AM, hopefully off later today Plan for bronchoscopy on Friday, will need to be made NPO on Friday night Consulted pulmonary medicine. Follows with Dr. 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 - Aneurysm was completed in 2005 the aneurysm was coiled and clipped at [facility]. Ischemic colitis - admitted in May 2016 -resolved at this time GERD - Patient is not on antacid, will order Protonix 40 mg daily with IV steroids ordered as above for GI ppx. DVT ppx: Teds, SCDs, OOB ad nima CODE STATUS: Full Code Disposition: Patient from home, lives with , plan for bronchoscopy on Friday, NPO on Friday night transfer to medical floor
[2016-10-05] MEDS: CEFTRIAXONE SOD INJ 1 GM in DEXTROSE 5% ADD-VANTAGE 50ML 50 ML IV SCH (16:20)
[2016-10-05] MEDS ORDERED: PROMETHAZINE HCL INJ 12.5 MG in SODIUM CHLORIDE 0.9% 50ML 50 ML IV ONE (16:30)
[2016-10-05] MEDS ORDERED: ONDANSETRON INJ 2 MG/ML 2 ML VIAL IV PRN (16:30)
[2016-10-05] MEDS ORDERED: NURSING VERBAL MED ORDER ONE (16:30)
[2016-10-05] MEDS: PYRIDOXINE HCL 50 MG TAB PO SCH (20:28)
[2016-10-05] MEDS: SIMVASTATIN 20 MG TAB PO SCH (20:29)
[2016-10-05] MEDS: MULTIVITAMIN TAB PO SCH (20:29)
[2016-10-06] VITALS (7 sets, daily range): BP systolic 108–137; BP diastolic 66–82; PULSE 75–87; TEMP 36.8–37.2; O2SAT 93–96
[2016-10-06] MEDS: ALBUT/IPRATROP 3MG/0.5MG NEB 3 ML VIAL INH PRN (01:18)
[2016-10-06 06:22] LABS: BASO % 0.1 %; BASO ABS # 0.01 K/uL (0-0.2); COMPLETE YES; EOS % 1.4 %; HEMATOCRIT 40.7 % (37-47); IG% 0.4 %; LYMPH ABS # 1.76 K/uL (1.2-3.4); MEAN CELL VOLUME 98.3 fL (80-100); MEAN CORPUSCULAR HEMOGLOBIN 33.6 pg (25-34); MEAN CORPUSCULAR HGB CONC 34.2 g/dl (32-36); MONO % 10.5 %; NEUT % 72.6 %; PLATELET COUNT 255 K/uL (130-400); RED BLOOD COUNT 4.14 M/uL (4.2-5.4); WHITE BLOOD COUNT 11.73 K/uL (4.8-10.8)
[2016-10-06 06:53] LABS: BUN/CREATININE RATIO 17.5 (10-20); CALCIUM 8.9 mg/dl (8.5-10.1); CREATININE 0.79 mg/dl (0.60-1.20); POTASSIUM 3.6 mmol/L (3.5-5.1)
[2016-10-06] MEDS: ARFORMOTEROL TART 15MCG/2ML VIAL INH SCH ×2 (07:16→19:38)
[2016-10-06] MEDS: CYANOCOBALAMIN 500 MCG TAB (VIT B-12) PO SCH (08:00)
[2016-10-06] MEDS: CARVEDILOL 3.125 MG TAB PO SCH ×2 (09:25→21:13)
[2016-10-06] MEDS: VENLAFAXINE HCL XR 150 MG CAPXR PO SCH (09:26)
[2016-10-06] MEDS: LISINOPRIL 20 MG TAB PO SCH ×2 (09:27→21:15)
[2016-10-06] MEDS: BuPROPion SR 150 MG TABCR PO SCH (09:27)
[2016-10-06] MEDS: VITAMIN B COMPLEX TAB PO SCH (09:28)
[2016-10-06] MEDS: PANTOprazole SOD 40 MG TAB PO SCH (09:28)
--- NOTE | 2016-10-06 14:57 | Progress Note ---
Subjective Date of Service: Oct 06, 2016. Subjective Pt evaluation today including: conversation w/ patient, conversation w/ family , physical exam, lab review, review of inpatient medication list Pain: no pain PO Intake: adequate Voiding: no voiding problems breathing slightly worse today, coughing more patient thought that Zithromax was d/c but it was not discussed that maybe what she needs is a bronchoscopy that is scheduled for tomorrow had some Phenergan last night for nausea, slept really well Problem List Medical Problems: (1) Colitis Status: Acute (2) GI bleed Status: Acute (3) Leukocytosis Status: Acute (4) Shortness of breath Status: Acute Review of Systems Constitutional: + fatigue, + weakness Respiratory: + cough, + dyspnea on exertion Abdomen: + nausea (resolved today) All Other Systems: Reviewed and Negative Medications Current Inpatient Medications Medications (Trade) Dose Ordered Sig/Saige Route Start Time Stop Time Status Last Admin Dose Admin Acetaminophen (Tylenol Tab) 650 mg Q4H PRN PO 10/04/16 12:00 11/03/16 11:59 10/04/16 12:24 650 MG Polyethylene (Miralax Powder Packet) 17 gm DAILY PRN PO 10/04/16 12:00 11/03/16 11:59 Arformoterol Tartrate (Brovana 15MCG/ 2ML Neb Soln) 15 mcg BIDR INH 10/04/16 20:00 11/03/16 19:59 10/06/16 07:16 15 MCG Bupropion HCl (Wellbutrin-Sr Tab) 150 mg QAM PO 10/05/16 09:00 11/04/16 08:59 10/06/16 09:27 150 MG Carvedilol (Coreg Tab) 9.375 mg BID PO 10/04/16 21:00 11/03/16 20:59 10/06/16 09:25 9.375 MG Albuterol/ Ipratropium (Combivent Respimat Inh) 1 puffs QID PRN INH 10/04/16 12:00 11/03/16 11:59 Lisinopril (Zestril Tab) 20 mg BID PO 10/04/16 21:00 11/03/16 20:59 10/06/16 09:27 20 MG Multivitamins (Multivitamin Tab) 1 tab QPM PO 10/04/16 21:00 4/23/17 20:59 10/05/16 20:29 1 TAB Pyridoxine HCl (Vitamin B-6 Tab) 100 mg QPM PO 10/04/16 21:00 11/03/16 20:59 10/04/16 20:36 100 MG Simvastatin (Zocor Tab) 20 mg QPM PO 10/04/16 21:00 11/03/16 20:59 10/05/16 20:29 20 MG Venlafaxine HCl (effeXOR EXTENDED REL CAP) 150 mg QAM PO 10/05/16 09:00 11/04/16 08:59 10/06/16 09:26 150 MG Vitamin B Complex (Vitamin B Complex) 1 tab DAILY PO 10/05/16 09:00 11/04/16 08:59 10/06/16 09:28 1 TAB Miscellaneous Information (Order Awaiting Action) 1 ea QS N/A 10/04/16 16:00 11/03/16 15:59 Cyanocobalamin (Vitamin B-12 Tab) 2,500 mcg DAILY PO 10/05/16 09:00 11/04/16 08:59 10/05/16 09:10 2,500 MCG Albuterol/ Ipratropium (Duoneb) 3 ml Q2H PRN INH 10/04/16 12:00 11/03/16 11:59 10/06/16 01:18 3 ML Pantoprazole Sodium 40 mg 40 mg QAM PO 10/05/16 09:00 11/04/16 08:59 10/06/16 09:28 40 MG Ceftriaxone Sodium/Dextrose (Rocephin Inj/ Dextrose Add-[place] 50ML) 50 ml @ 100 mls/hr DAILY@1600 IV 10/04/16 16:15 10/11/16 16:14 10/05/16 16:20 100 MLS/HR Prednisone (PredniSONE TAB) 40 mg QAM PO 10/06/16 08:00 11/05/16 08:59 10/06/16 09:29 40 MG Ondansetron HCl (Zofran Inj) 4 mg Q4 PRN IV 10/05/16 16:30 11/04/16 16:29 Objective Vital Signs Date Time Temp Pulse Resp B/P Pulse Ox O2 Delivery O2 Flow Rate FiO2 10/06/16 09:39 Room Air 10/06/16 07:15 76 14 96 Room Air 10/06/16 07:03 36.8 76 16 108/66 94 Room Air 10/06/16 01:18 84 14 94 Room Air 10/06/16 00:01 Room Air 10/05/16 23:49 36.7 85 20 103/67 94 Room Air 10/05/16 20:26 94 103/67 10/05/16 20:00 Nasal Cannula 1.0 10/05/16 19:54 97 14 97 Nasal Cannula 2.0 10/05/16 16:00 Nasal Cannula 1.0 10/05/16 14:58 36.7 74 18 106/67 97 Room Air Physical Exam General Appearance: WD/WN, no apparent distress Eyes: normal inspection, EOMI, sclerae normal ENT: normal ENT inspection, hearing grossly normal, pharynx normal Neck: supple, no adenopathy, no JVD, trachea midline Respiratory/Chest: chest non-tender, normal breath sounds, no respiratory distress, no accessory muscle use, + rhonchi (scattered, clear with cough), + wheezing (faint in right base) Cardiovascular: regular rate, rhythm, no edema, no gallop, no JVD, no murmur Abdomen: normal bowel sounds, non tender, soft, no organomegaly Extremities: normal range of motion, non-tender, normal inspection, no pedal edema, no calf tenderness Neurologic/Psychiatric: cast associate II-XII nml as tested, no motor/sensory deficits, alert, normal mood/affect, oriented x 3 Skin: normal color, warm/dry, no rash Lymphatic: no adenopathy Laboratory Results Last 24 Hours Test 10/06/16 05:55 White Blood Count 11.73 K/uL Red Blood Count 4.14 M/uL Hemoglobin 13.9 g/dL Hematocrit 40.7 % Mean Corpuscular Volume 98.3 fL Mean Corpuscular Hemoglobin 33.6 pg Mean Corpuscular Hemoglobin Concent 34.2 g/dl Platelet Count 255 K/uL Mean Platelet Volume 10.0 fL Neutrophils (%) (Auto) 72.6 % Lymphocytes (%) (Auto) 15.0 % Monocytes (%) (Auto) 10.5 % Eosinophils (%) (Auto) 1.4 % Basophils (%) (Auto) 0.1 % Neutrophils # (Auto) 8.51 K/uL Lymphocytes # (Auto) 1.76 K/uL Monocytes # (Auto) 1.23 K/uL Eosinophils # (Auto) 0.17 K/uL Basophils # (Auto) 0.01 K/uL RDW Standard Deviation 48.9 fL RDW Coefficient of Variation 13.7 % Immature Granulocyte % (Auto) 0.4 % Immature Granulocyte # (Auto) 0.05 K/uL Sodium Level 145 mmol/L Potassium Level 3.6 mmol/L Chloride Level 111 mmol/L Carbon Dioxide Level 28 mmol/L Anion Gap 6.0 mmol/L Blood Urea Nitrogen 14 mg/dl Creatinine 0.79 mg/dl Est Creatinine Clear Calc Drug Dose 55.2 ml/min Estimated GFR () 89.1 Estimated GFR (Non- 76.9 BUN/Creatinine Ratio 17.5 Random Glucose 91 mg/dl Calcium Level 8.9 mg/dl Assessment and Plan This is a 58-year-old female with past medical history of COPD, cardiomyopathy s /p pacemaker and ICD placement, history of cerebral aneurysm coiled and clipped in 2005, hypertension, GERD, ischemic colitis, history of aspergillosis pneumonia in 2005. The patient follows with thoracic medicine as an outpatient with Dr. Lara she was scheduled for an in and out bronchoscopy today with Dr. Magana, however the patient has been increasingly short of breath, has a cough with production which is yellow/green, and breath sounds were tight prior to scheduled procedure so it was not completed. Dr. Magana and has requested the patient be admitted over the weekend to optimize her for bronchoscopy on Friday. COPD with exacerbation stable, changed to Prednisone 40mg yesterday, continue Rocephin/Zithromax for now continue home inhalers: Combivent Respimat 20-100 mcg/ACT 1 puff BID, Atrovent 1 inh BID, Brovana 15 mcg/2mL)and has duonebs every Q2H nebulizers when necessary weaning oxygen, to room air today Plan for bronchoscopy on Friday, will need to be made NPO on Friday night Consulted pulmonary medicine. Follows with Dr. 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 - Aneurysm was completed in 2005 the aneurysm was coiled and clipped at [facility]. Ischemic colitis - admitted in May 2016 -resolved at this time GERD - Patient is not on antacid, will order Protonix 40 mg daily with IV steroids ordered as above for GI ppx. DVT ppx: Teds, SCDs, OOB ad nima CODE STATUS: Full Code Disposition: Patient from home, lives with , plan for bronchoscopy on Friday, NPO on Friday night
[2016-10-06] MEDS: CEFTRIAXONE SOD INJ 1 GM in DEXTROSE 5% ADD-VANTAGE 50ML 50 ML IV SCH (16:00)
[2016-10-06] MEDS: PYRIDOXINE HCL 50 MG TAB PO SCH (21:00)
[2016-10-06] MEDS: MULTIVITAMIN TAB PO SCH (21:14)
[2016-10-06] MEDS: SIMVASTATIN 20 MG TAB PO SCH (21:17)
[2016-10-07] VITALS (19 sets, daily range): BP systolic 105–154; BP diastolic 54–85; PULSE 68–110; TEMP 36.3–36.7; O2SAT 93–98
[2016-10-07] MEDS ORDERED: NURSING VERBAL MED ORDER ONE ×2 (07:30→09:30)
[2016-10-07] MEDS: ARFORMOTEROL TART 15MCG/2ML VIAL INH SCH (07:33)
[2016-10-07] MEDS ORDERED: SODIUM CHLORIDE 0.9% 1000ML 1,000 ML IV SCH (07:45)
[2016-10-07] MEDS ORDERED: MIDAZOLAM HCL 5 MG/ML 1 ML VIAL IV ONE ×2 (09:45→14:06)
[2016-10-07] MEDS: PANTOprazole SOD 40 MG TAB PO SCH (09:47)
[2016-10-07] MEDS: CYANOCOBALAMIN 500 MCG TAB (VIT B-12) PO SCH (09:48)
[2016-10-07] MEDS: VITAMIN B COMPLEX TAB PO SCH (09:48)
[2016-10-07] MEDS: CARVEDILOL 3.125 MG TAB PO SCH (09:48)
[2016-10-07] MEDS: BuPROPion SR 150 MG TABCR PO SCH (09:48)
[2016-10-07] MEDS: VENLAFAXINE HCL XR 150 MG CAPXR PO SCH (09:49)
[2016-10-07] MEDS: LISINOPRIL 20 MG TAB PO SCH (09:49)
[2016-10-07] MEDS ORDERED: PRED10TA PO (09:54)
--- NOTE | 2016-10-07 10:01 | Discharge Instructions ---
Discharge Instructions Date of Service Oct 07, 2016. Admission Reason for Admission: Copd, Shortness Of Breath Discharge Discharge Diagnosis / Problem: COPD exacerbation Discharge Goals Goal(s): Decrease discomfort, Improve function, Improve disease control, Diagnostic testing, Therapeutic intervention, Prevent Disease Progression Activity Recommendations Activity Limitations: resume your previous activity . Instructions / Follow-Up Instructions / Follow-Up New medications: 1. Prednisone chemo; take 30 mg by mouth x2 days, 20 mg by mouth x2 days, 10 mg by mouth x2 days, 5 mg by mouth x2 days Your prescription has been sent to your pharmacy You have asked about starting a low dose Prednisone daily to prevent further COPD exacerbations; this is a discussion to have with your hub inventory specialist/PCP at your follow-up appointments. Resume all other regular home medications as prescribed to you Please follow-up with your PCP within 5-7 days Please follow-up with Pulmonary as instructed by them Please follow-up/keep all of your subspecialty appointments ACTIVITY RECOMMENDATIONS: * Rest today, resume normal activity tomorrow. * Do not drive today. SPECIAL CARE INSTRUCTIONS: * Call your physician if you experience any chest or shoulder pain, fever, coughing, spitting up blood (more than 2 teaspoons) or excessive shortness of breath. * Remove dressing from IV site (where needle was placed into the vein) after 2 hours. Apply a warm, moist compress to site if irritation occurs. Call physician if site becomes red or painful to touch. FOLLOW UP VISIT: * Keep any scheduled doctor appointments. Current Hospital Diet Patient's current hospital diet: Regular Diet Discharge Diet Recommended Diet: Regular Diet Procedures Procedures Performed: 1. Bronchoscopy Pending Studies Studies pending at discharge: yes List of pending studies: 1. Bronchial washings 2. Herpes Simplex culture Laboratory Results Test 10/04/16 09:28 10/06/16 05:55 10/07/16 08:37 Range/Units Bedside Glucose 84 70-90 mg/dl White Blood Count 11.73 4.8-10.8 K/uL Red Blood Count 4.14 4.2-5.4 M/uL Hemoglobin 13.9 12.0-16.0 g/dL Hematocrit 40.7 37-47 % Mean Corpuscular Volume 98.3 80-100 fL Mean Corpuscular Hemoglobin 33.6 25-34 pg Mean Corpuscular Hemoglobin Concent 34.2 32-36 g/dl Platelet Count 255 130-400 K/uL Mean Platelet Volume 10.0 7.4-10.4 fL Neutrophils (%) (Auto) 72.6 % Lymphocytes (%) (Auto) 15.0 % Monocytes (%) (Auto) 10.5 % Eosinophils (%) (Auto) 1.4 % Basophils (%) (Auto) 0.1 % Neutrophils # (Auto) 8.51 1.4-6.5 K/uL Lymphocytes # (Auto) 1.76 1.2-3.4 K/uL Monocytes # (Auto) 1.23 0.11-0.59 K/uL Eosinophils # (Auto) 0.17 0-0.5 K/uL Basophils # (Auto) 0.01 0-0.2 K/uL RDW Standard Deviation 48.9 36.4-46.3 fL RDW Coefficient of Variation 13.7 11.5-14.5 % Immature Granulocyte % (Auto) 0.4 % Immature Granulocyte # (Auto) 0.05 0.00-0.02 K/uL Sodium Level 145 136-145 mmol/L Potassium Level 3.6 3.5-5.1 mmol/L Chloride Level 111 98-107 mmol/L Carbon Dioxide Level 28 21-32 mmol/L Anion Gap 6.0 3-11 mmol/L Blood Urea Nitrogen 14 7-18 mg/dl Creatinine 0.79 0.60-1.20 mg/dl Est Creatinine Clear Calc Drug Dose 55.2 ml/min Estimated GFR () 89.1 Estimated GFR (Non- 76.9 BUN/Creatinine Ratio 17.5 10-20 Random Glucose 91 70-99 mg/dl Calcium Level 8.9 8.5-10.1 mg/dl Medical Emergencies . Who to Call and When: Medical Emergencies: If at any time you feel your situation is an emergency, please call 911 immediately. . Non-Emergent Contact Non-Emergency issues call your: Primary Care Provider . . "Provider Documentation" section prepared by Nati Villarreal. VTE Core Measure Inpt VTE Proph given/why not?: Bijan Lara, SCD's
--- NOTE | 2016-10-07 10:14 | Discharge Summary ---
Discharge Summary Date of Service Oct 07, 2016. Discharge Summary Admission Date: Oct 04, 2016 at 11:51 Discharge Date: Oct 07, 2016 Discharge Disposition: Home Principal Diagnosis: COPD exacerbation Problems/Secondary Diagnoses: 1. 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 HTN 3. Hx of cerebral aneurysm 4. Ischemic colitis 5. GERD Immunizations: Have You Had Influenza Vaccine: Yes Influenza Vaccine Date: Apr 17, 2009 History of Tetanus Vaccine?: Yes History of Pneumococcal: Yes Pneumococcal Date: Apr 17, 2009 History of Hepatitis B Vaccine: No Procedures: Bronchoscopy OPERATIVE REPORT [place], [place] Patient: LAURE INIGUEZ Admit Date: 10/04/1702/24/17 Med Rec: [id number] Att Phy: Darek Valdes MD, PhD Acct ID: [id number] Fam Phy: Lakisha Kothari, DO Date: 1950 Ref Phy: Lakisha Kothari, DO Age: 66 [place] [facility] [place] Room[place]Bed[place] [facility] REPORT #: [id number] CC: Gm Magana M.D. Endcc: DICTATED BY: Gm Magana M.D. DATE OF OPERATION: 10/07/2016 TIME: 0800 PROCEDURE: Fiberoptic bronchoscopy with bronchoalveolar lavage. INDICATIONS: Chronic obstructive pulmonary disease exacerbation with possible mucoid impaction. ANESTHESIA PREOPERATIVELY: None. ANESTHESIA DURING PROCEDURE: 2.5 mg IV Versed, 20 mL 2% Xylocaine spray above and below the cords, 4% viscous Xylocaine intranasally. PROCEDURE IN DETAIL: Fiberoptic bronchoscope was inserted through the left naris with minimal difficulty and passed to the level of the true vocal cords. The cords appeared to approximate normally with phonation, without evidence of lesions or paralysis. The scope was then introduced in the trachea and right and left tracheobronchial tree. The angeli was sharp. The right main stem bronchus was explored and bronchomalacia was noted with moderate degree of global inflammatory mucosal change seen. Copious amount of mucoviscous secretion was seen involving all lobar segments and occluding the right lower lobe. Each lobar segment and segmental bronchus was copiously lavaged with normosol, especially the right lower lobe, and the aspirate sent for appropriate studies. Changes of chronic bronchitis were noted with bronchial crypts and clefts visible throughout the right tracheobronchial tree. Left main stem bronchus was free of endobronchial lesions. Left upper lobe, lingular subdivision, and left lower lobe were free of endobronchial lesions down to subsegmental bronchi. The procedure was terminated. The patient appeared to tolerate the procedure well and was given a nebulizer treatment with Xopenex 1.25 mg, then transferred back to the medical floor hemodynamically stable with no signs of respiratory compromise. We will await microbiological and cytologic examination of the bronchial washings. I attest to the content of the Intraoperative Record and any orders documented therein. Any exceptions are noted below. Dictated: 10/07/16 0842 Transcribed: 10/07/16 1058 Signed: ES Gm Magana M.D. The status of this report is Draft. Draft = Not yet reviewed or approved by Medical Physician. Signed = Reviewed and approved by Medical Physician. Consultations: Pulmonary- Dr. Magana and Dr. Ortega Medication Reconciliation New Medications: Prednisone Tab (Prednisone) 10 Mg Tab 10 MG PO DAILY for 8 Days, #13 TAB 30 mg x2 days, 20 mg x2 days, 10 mg x2 days, 5 mg x2 days Continued Medications: Arformoterol Tartrate (Brovana) 15 Mcg/2 Ml Neb 15 MCG IN BID B-Complex Vitamins (Vitamin B Complex) 1 Tab Tab 1 TAB PO QAM Bupropion Hcl (Wellbutrin Sr) 150 Mg Tab 150 MG PO QAM, TAB Carvedilol (Coreg) 3.125 Mg Tab 9.375 MG PO BID for 30 Days, #180 TAB 3 Refills Chlorpheniramine Maleate (Chlor-[place] Allergy) 12 Mg Tab 1 TAB PO QAM Cyanocobalamin (Vitamin B12) 1,000 Mcg Tab 2500 MCG PO DAILY Ipratropium-Albuterol (Combivent Respimat) 1 Aer Aer 1 PUFFS INH QID PRN for Shortness of Breath, INH Lisinopril (Prinivil) 20 Mg Tab 20 MG PO BID, TAB Multivitamin (Multivitamin) Tab 1 TAB PO QPM, TAB Oyster Shell (Calcium) 500 Mg Tab 1 TAB PO QAM Pyridoxine (Vitamin B6) 100 Mg Tab 100 MG PO QPM, TAB Simvastatin (Zocor) 20 Mg Tab 20 MG PO QPM, TAB Venlafaxine Hcl (Effexor Extended Rel) 150 Mg Cap 150 MG PO QAM, CAP Referrals At Discharge Follow up Referrals: Family Practice Referral - Within 1 Week with Lakisha Kothari, DO Discharge Exam Review of Systems: Constitutional: No chills, No fatigue, No fever, No sweats, No weakness Respiratory: + cough, + sputum, No hemoptysis, No shortness of breath, No wheezing Cardiovascular: No chest pain, No edema, No palpitations Abdomen: No constipation, No diarrhea, No nausea, No pain, No vomiting Musculoskeletal: No calf pain, No joint pain, No muscle pain, No swelling Genitourinary - Female: No dysuria, No hematuria Neurologic: No numbness/tingling, No weakness Psychiatric: No anxiety, No depression symptoms Hematologic / Lymphatic: No abnormal bleeding/bruising Integumentary: No itch, No new/changing skin lesions, No rash Physical Exam: General Appearance: no apparent distress Eyes: normal inspection, PERRL ENT: hearing grossly normal Neck: supple Respiratory/Chest: lungs clear, no respiratory distress, no accessory muscle use Cardiovascular: regular rate, rhythm Abdomen / GI: normal bowel sounds, non tender, soft Extremities: no calf tenderness, no pedal edema Neurologic/Psychiatric: alert, normal mood/affect, oriented x 3 Skin: normal color, warm/dry, no rash Hospital Course HPI at admission: This is a 58-year-old female with past medical history of COPD , cardiomyopathy s/p pacemaker and ICD placement, history of cerebral aneurysm coiled and clipped in 2005, hypertension, GERD, ischemic colitis, history of aspergillosis pneumonia in 2005. The patient follows with thoracic medicine as an outpatient with Dr. Lara she was scheduled for an in and out bronchoscopy today with Dr. Magana, however the patient has been increasingly short of breath, has a cough with production which is yellow/green, and breath sounds were tight prior to scheduled procedure so it was not completed. Dr. Magana and has requested the patient be admitted over the weekend to optimize her for bronchoscopy on Friday. The is present with the patient at bedside. reports that issues with his 's breathing has been ongoing process for the last 8 years. Worsening in the past 4 years with on and off upper respiratory infections where she's been treated with antibiotics and prednisone tapers. Most recently the patient was placed on prednisone taper with for 16 days which finished on 05/30, along with initially being on Levaquin. Levaquin did not seem to improve the patient's symptoms so was switched to amoxicillin. The patient notes that she has been having coughing fits since finishing the prednisone taper. On Friday, 10/01, the patient took 20 mg prednisone that she had left over, and reports a significant improvement in her breathing the following day. Patient is not on chronic prednisone or antibiotics. The past 3 days she has not been doing extra physical activity or been exerting herself. She always notices breathing is worse in the morning when she wakes up. Patient states that currently her breathing seems to be improved, and is wearing 2L O2. She admits to sometimes feeling lightheaded after severe coughing fit, and that she also occasionally nauseous from extreme coughing. She denies any chest pain,flutter or palpitation. She is complaining of mild headache currently. Acute on chronic COPD exacerbation: - Admitted to telemetry for cardiac monitoring -- Transferred to med/surg on 10/05 - Continue home inhalers: Combivent Respimat 20-100 mcg/ACT 1 puff BID, Atrovent 1 INH BID, Brovana 15 mcg/2mL) and has duonebs every Q2H nebulizers PRN - Amoxicillin 500 mg PO x1 dose, Azithromycin 500 mg IV x1 dose, IV Rocephin x4 doses - IV Steroids with Solu-Medrol 30 mg Q8H--> weaned/transitioned to Prednisone chemo x10 days (started on 10/05) - O2 protocol, wean as tolerated--> does NOT wear O2 at home - Consulted pulmonary medicine. Follows with Dr. 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 Aneurysm was completed in 2005 the aneurysm was coiled and clipped at [facility]. Ischemic colitis: Admitted in May 2016- resolved at this time GERD: Patient is not on antacid- Protonix 40 mg daily with IV steroids ordered as above for GI ppx DVT ppx: Teds, SCDs, OOB ad nima CODE STATUS: LEVEL I, FULL Disposition: Discharge to home Total Time Spent: Greater than 30 minutes This includes examination of the patient, discharge planning, medication reconciliation, and communication with other providers. Discharge Instructions Please refer to the electronic Patient Visit Report (Discharge Instructions) for additional information. Follow-Up Please follow-up with your PCP within 5-7 days Please follow-up with Pulmonary as intrusted by them Please follow-up/keep all of your subspecialty appointments Additional Copies To Lakisha Kothari,
--- NOTE | 2016-10-07 10:59 | OPERATIVE REPORT ---
DATE OF OPERATION: 10/07/2016 TIME: 0800 PROCEDURE: Fiberoptic bronchoscopy with bronchoalveolar lavage. INDICATIONS: Chronic obstructive pulmonary disease exacerbation with possible mucoid impaction. ANESTHESIA PREOPERATIVELY: None. ANESTHESIA DURING PROCEDURE: 2.5 mg IV Versed, 20 mL 2% Xylocaine spray above and below the cords, 4% viscous Xylocaine intranasally. PROCEDURE IN DETAIL: Fiberoptic bronchoscope was inserted through the left naris with minimal difficulty and passed to the level of the true vocal cords. The cords appeared to approximate normally with phonation, without evidence of lesions or paralysis. The scope was then introduced in the trachea and right and left tracheobronchial tree. The angeli was sharp. The right main stem bronchus was explored and bronchomalacia was noted with moderate degree of global inflammatory mucosal change seen. Copious amount of mucoviscous secretion was seen involving all lobar segments and occluding the right lower lobe. Each lobar segment and segmental bronchus was copiously lavaged with normosol, especially the right lower lobe, and the aspirate sent for appropriate studies. Changes of chronic bronchitis were noted with bronchial crypts and clefts visible throughout the right tracheobronchial tree. Left main stem bronchus was free of endobronchial lesions. Left upper lobe, lingular subdivision, and left lower lobe were free of endobronchial lesions down to subsegmental bronchi. The procedure was terminated. The patient appeared to tolerate the procedure well and was given a nebulizer treatment with Xopenex 1.25 mg, then transferred back to the medical floor hemodynamically stable with no signs of respiratory compromise. We will await microbiological and cytologic examination of the bronchial washings. I attest to the content of the Intraoperative Record and any orders documented therein. Any exceptio ns are noted below.
[2016-10-07] MEDS ORDERED: LIDOCAINE 4% W/AFRIN NASAL SOLN 4ML ONE (14:06)
[2016-10-07] MEDS ORDERED: LEVALBUTEROL 1.25MG/3ML NEB INH ONE (14:06)
[2016-10-07] MEDS ORDERED: LIDOCAINE HCL 2% LOCAL 50ML VIAL INFIL ONE (14:06)
[2016-10-09 14:00] LABS: HERPES SIMPLEX CULT SOURCE OTHER-RLL WASH; HERPES SIMPLEX VIRUS CULT NOT ISOLATED (NOT ISOLATED)
[2016-12-06] MEDS ORDERED: CARV3.12 PO (11:30)
[2016-12-06] MEDS ORDERED: ATRINSX PO (11:30)
[2016-12-06] MEDS ORDERED: CARV6.252 PO (11:30)
[2016-12-06] MEDS ORDERED: CALC600T9 PO (11:30)
[2016-12-06] MEDS ORDERED: MUCINEX PO (11:30)
[2016-12-06] MEDS ORDERED: PRED10TA PO (11:30)
[2016-12-06] MEDS ORDERED: ERYT250T PO (11:30)
[2017-02-18] MEDS ORDERED: GUAI1TAB69 PO (08:59)
[2017-02-18] MEDS ORDERED: MOME220A INH (08:59)
[2017-02-18] MEDS ORDERED: SIMV20TA2 PO (08:59)
[2017-02-18] MEDS ORDERED: PRED-301 PO (08:59)
[2017-02-25] MEDS ORDERED: NICO4GUM7 PO (12:13)
== END 2016-10-07 14:07 | disposition home or self-care (01) | DRG 167 ==
LOC: ENRESERVDT → CANRESERV → ENRESERVTM → C.ACU 08:30 → C.2T 11:51 → C.4E 10-05 10:51
PROVIDERS: ADMIT Internal Medicine; ATTEND Hospitalist
PROC: 0B9D8ZX Drainage of Right Middle Lung Lobe, Via Natural or Artificial Opening Endoscopic, Diagnostic (ICD-10-PCS; principal; 2016-10-07)
PROC: 0B9C8ZX Drainage of Right Upper Lung Lobe, Via Natural or Artificial Opening Endoscopic, Diagnostic (ICD-10-PCS; principal; 2016-10-07)
PROC: 0B9F8ZX Drainage of Right Lower Lung Lobe, Via Natural or Artificial Opening Endoscopic, Diagnostic (ICD-10-PCS; principal; 2016-10-07)
DX: J44.1 Chronic obstructive pulmonary disease with (acute) exacerbation (principal); I42.8 Other cardiomyopathies; E83.110 Hereditary hemochromatosis; Q99.8 Other specified chromosome abnormalities; J32.9 Chronic sinusitis, unspecified; I10 Essential (primary) hypertension; K21.9 Gastro-esophageal reflux disease without esophagitis; E78.5 Hyperlipidemia, unspecified; Z95.810 Presence of automatic (implantable) cardiac defibrillator; Z87.891 Personal history of nicotine dependence; Z79.899 Other long term (current) drug therapy

== ENCOUNTER → 2017-02-04 | Outpatient (CLI) | payer BC ==
[~2017-02-04] MED LIST changes: -ATRINSX INH; +ATRINSX PO; +CALC600T9 PO; +CARV3.12 PO; +CARV6.252 PO; +ERYT250T PO; -FAMO20TA11 PO; -FLUT0.15 NAE; +GUAI1TAB69 PO; +LISI20TA3 PO; -LOSA1TAB38 PO; +MOME220A INH; -MONT1TAB5 PO; +MUCINEX PO; +NICO4GUM7 PO; -OYST500T47 PO; +PRED-301 PO; +PRED10TA PO; -SPRIN/30 INH
[2017-02-04 15:01] LABS: ALKALINE PHOSPHATASE 54 U/L (45-117); ALT/SGPT 32 U/L (12-78); AST/SGOT 25 U/L (15-37)
== END | disposition home or self-care (01) ==
LOC: C.LAB1850 12:50
PROVIDERS: ATTEND Physician Assistant
DX: Z00.00 Encounter for general adult medical examination without abnormal findings (principal); J44.9 Chronic obstructive pulmonary disease, unspecified; K21.9 Gastro-esophageal reflux disease without esophagitis; E83.119 Hemochromatosis, unspecified

== ENCOUNTER → 2017-02-25 | Day surgery (SDC) | payer BC ==
[2017-02-18 09:00] VITALS: Ht 160 cm; Wt 53.2 kg
[~2017-02-25] VITALS: Ht 160 cm; Wt 53.2 kg
[~2017-02-25] MED LIST changes: +ALBUTEROL HFA INHALER 8.5 GM INH ONE; +FENTANYL CITRATE INJ 50 MCG/1 ML 2 ML VIAL ONE; +LIDOCAINE HCL 2% 2 ML VIAL (20MG/ML) ONE; -MUCINEX PO; -PRED10TA PO; +PROPOFOL IV EMULSION 10 MG/ML 20 ML VIAL IV ONE; +SODIUM CHLORIDE 0.9% 500ML 500 ML IV ONE
[2017-02-25 10:45] VITALS: TEMP 37
--- NOTE | 2017-02-25 11:14 | Endo History and Physical ---
History & Physical Date of Service: Feb 25, 2017. Chief Complaint: Acid reflux, chronic reflux esophagitis Referring Physician: Dr. Carlo Lara History of Present Illness chronic cough Past Medical History Neurological Disorder, Arthritis, Asthma, Reflux, Blood Dyscrasias, Heart Disease, COPD, Other, Depression Past Surgical History Hx Cardiac Surgery: Yes (HEART CATH X2, NO STENTS) Hx Internal Defibrillator: Yes ([employer]) Hx Pacemaker: Yes Hx Abdominal Surgery: Yes (APPY, TUBAL LIGATION) Hx Post-Op Nausea and Vomiting: Yes Hx Cancer Surgery: No Hx Thoracic Surgery: Yes (BRONCHS MULT.) Hx Orthopedic: No Hx Urinary Tract Surgery: No Family History IBD Social History Smoking Status: Former Smoker Hx Substance Use: No Hx Alcohol Use: Yes (1 CAN BEER/DAY) Allergies Coded Allergies: Galantamine (Verified Allergy, Unknown, "WENT IN TO SHOCK", 02/25/17) Midazolam (Verified Adverse Reaction, Intermediate, confusion WITH HIGH DOSE AND DECREASED BP, 02/25/17) over 4 ml pt confused for a week after Moxifloxacin (Verified Adverse Reaction, Mild, DIZZY, NAUSEA, 02/25/17) Current Medications Reported Home Medications Medications Dose Route/Sig Max Daily Dose Days Date Category Zocor (Simvastatin) 20 Mg Tab 20 Mg PO QPM 02/18/17 Reported Prednisone 5 Mg Tab 5 Mg PO Q2D 02/18/17 Reported Asmanex Twisthaler 120 Me (Mometasone Furoate (Inhalation) 220 Mcg/Inh Aer 2 Puff INH BID 02/18/17 Reported Mucinex Maximum Strength (Guaifenesin) 1,200 Mg Tab 1 Tab PO BID 15 02/18/17 Reported Atrovent 0.02% Soln (Ipratropium [place]) 2.5 Ml Nebu 1 Dose PO BID 12/06/16 Reported Calcium + D (Calcium Carbonate-Vitamin D) 1 Tab Tab 1 Tab PO QAM 12/06/16 Reported Coreg (Carvedilol) 6.25 Mg Tab 6.25 Mg PO BID 12/06/16 Reported Coreg (Carvedilol) 3.125 Mg Tab 3.125 Mg PO BID 12/06/16 Reported Prinivil (Lisinopril) 20 Mg Tab 20 Mg PO BID 10/04/16 Reported Vitamin B12 (Cyanocobalamin) 1,000 Mcg Tab 2,500 Mcg PO QPM 09/11/16 Reported Vitamin B6 (Pyridoxine HCl) 100 Mg Tab 100 Mg PO QPM 08/12/16 Reported Chlor-Trimeton Allergy (Chlorpheniramine Maleate) 12 Mg Tab 1 Tab PO QAM 08/12/16 Reported Wellbutrin Sr (Bupropion Hcl) 150 Mg Tab 150 Mg PO QAM 12/29/15 Reported Multivitamin (Multivitamins) Tab 1 Tab PO QPM 12/29/15 Reported Vitamin B Complex (B-Complex Vitamins) 1 Tab Tab 1 Tab PO QAM 12/29/15 Reported Combivent Respimat (Ipratropium-Albuterol) 1 Aer Aer 1 Puffs INH QID PRN 12/29/15 Reported Brovana (Arformoterol Tartrate) 15 Mcg/2 Ml Neb 15 Mcg IN BID 12/29/15 Reported Effexor Extended Rel (Venlafaxine Hcl) 150 Mg Cap 150 Mg PO QAM 12/29/15 Reported Vital Signs Weight (Kilograms): 53.18 Height (Feet): 5 Height (Inches): 3 Date Time Temp Pulse Resp B/P (MAP) Pulse Ox O2 Delivery O2 Flow Rate FiO2 02/25/17 10:45 37 86 20 116/69 (85) 98 Room Air Physical Exam General Appearance: WD/WN, no apparent distress Assessment and Plan EGD with HINTON today
--- NOTE | 2017-02-25 11:44 | Discharge Instructions ---
Endoscopy Patient Instructions Date / Procedure(s) Performed Feb 25, 2017. EGD Allergy Information Coded Allergies: Galantamine (Verified Allergy, Unknown, "WENT IN TO SHOCK", 02/25/17) Midazolam (Verified Adverse Reaction, Intermediate, confusion WITH HIGH DOSE AND DECREASED BP, 02/25/17) over 4 ml pt confused for a week after Moxifloxacin (Verified Adverse Reaction, Mild, DIZZY, NAUSEA, 02/25/17) Discharge Date / Findings Feb 25, 2017. Normal EGD; HINTON placed Medication Instructions Stopped Medication(s): Patient was told to not take her supplements today. OK to resume home medications. Do not take any reflux medications Provider Instructions Activity Restrictions - No exercising or heavy lifting for 24 hours. - Do not drink alcohol the day of the procedure. - Do not drive a car or operate machinery until the day after the procedure. - Do not make any important decisions or sign important papers in 24 hours after the procedure. Following Day: - Return to full activity which may include returning to work/school. Diet Start your diet with liquids and light foods (jello, soup, juice, toast). Then eat your usual diet if not nauseated. Treatment For Common After Affects For mild abdominal pain, bloating, or excessive gas: - Rest - Eat lightly - Lie on right side Follow-Up Information Follow-up with Dr. Carlo Lara as scheduled Anesthesia Information What You Should Know You have had a procedure that required some medicine to reduce anxiety and discomfort. This treatment is called moderate sedation. After receiving the treatment, you may be sleepy, but you will be able to breathe on your own. The effects of the treatment may last for several hours. Follow these instructions along with Activity/Diet recommendations noted above: * Do NOT do anything where dizziness or clumsiness would be dangerous. * Rest quietly at home today, then you can be up and about tomorrow. * Have a responsible person stay with you the rest of today. * You may have had an I.V. today. If so, you may take the dressing off later today. Recommendations Call your doctor if: * Trouble breathing * Continuous vomiting for more than 24 hours * Temperature above 101 degrees * Severe abdominal pain or bloating * Pain not relieved by pain medicine ordered * There is increased drainage or redness from any incision * A large amount of rectal bleeding greater than 2-3 tablespoons. (If you had a polyp/s removed or have hemorrhoids, a small amount of blood - from the rectum is to be expected.) * You have any unanswered questions or concerns. IN THE EVENT OF A SERIOUS EMERGENCY, GO TO THE NEAREST EMERGENCY ROOM Your discharge instructions were prepared by provider Gabbie Willis. Patient Instructions Signature Page Sol Wen Patient (or Guardian) Signature/Date: I have read and understand the instructions given to me by my caregivers. Caregiver/RN/Doctor Signature/Date: The above-named patient and/or guardian has received patient instructions on this date. + Original Patient Signature Page (only) stays with chart. Please make copy for patient.
--- NOTE | 2017-02-25 11:44 | GI REPORT ---
Procedure Date: 02/25/2017 11:00 AM Procedure: Upper GI endoscopy Indications: Chronic cough; history of GERD; has not been on PPI for quite some time; pulmonary concerned about reflux and aspiration Medicines: Propofol per Anesthesia Complications: No immediate complications. Estimated blood loss: None. Estimated Blood Loss: Estimated blood loss: none. Procedure: Pre-Anesthesia Assessment: - Prior to the procedure, a History and Physical was performed, and patient medications, allergies and sensitivities were reviewed. The patient's tolerance of previous anesthesia was reviewed. - The risks and benefits of the procedure and the sedation options and risks were discussed with the patient. All questions were answered and informed consent was obtained. - Patient identification and proposed procedure were verified prior to the procedure by the physician and the nurse. The procedure was verified in the pre-procedure area in the procedure room. - Mental Status Examination: alert and oriented. Airway Examination: normal oropharyngeal airway and neck mobility. Respiratory Examination: clear to auscultation. CV Examination: normal. Abdominal Examination: bowel sounds present, abdomen soft and non-tender, no masses or organomegaly noted. - ASA Grade Assessment: III - A patient with severe systemic disease. After obtaining informed consent, the endoscope was passed under direct vision. Throughout the procedure, the patient's blood pressure, pulse, and oxygen saturations were monitored continuously. The scope was introduced through the mouth, and advanced to the second part of duodenum. The upper GI endoscopy was accomplished without difficulty. The patient tolerated the procedure well. Findings: The examined esophagus was normal. The HINTON capsule with delivery system was introduced through the mouth and advanced into the esophagus, such that the HINTON pH capsule was positioned 33 cm from the incisors, which was 6 cm proximal to the EG junction. Suction was applied to the well of the HINTON pH capsule to suck in the adjacent mucosa of the esophagus using the external vacuum pump set at a minimum vacuum pressure of 550 mmHg for 60 seconds. The HINTON pH capsule was then deployed by depressing the plunger on top of the handle to advance the locking pin into the mucosa, thereby attaching the capsule to the esophagus. The plunger was then rotated a quarter turn clockwise to release the capsule from the delivery system. The delivery system was then withdrawn. Endoscopy was utilized for probe placement and diagnostic evaluation. A small hiatus hernia was present. The examined duodenum was normal. Impression: - Normal esophagus. - Small hiatus hernia. - Normal examined duodenum. - The HINTON pH capsule was positioned 33 cm from the naris, which was 6 cm proximal to the EG junction. - No specimens collected. Recommendation: - Follow HINTON instructions. Study being done OFF relfux medications. - Return to referring physician as previously scheduled. - Discharge patient to home. Gabbie Willis D.O. Gabbie Willis DO 02/25/2017 11:43:50 AM This report has been signed electronically. Note Initiated On: 02/25/2017 11:00 AM I attest to the content of the Intraoperative Record and orders documented therein, exceptions below
[2017-02-25 12:13] VITALS: BP 110/51; PULSE 78; O2SAT 94
--- NOTE | 2017-02-25 12:41 | Anesthesiology Progress Note ---
Anesthesia Post Op Note Date & Time Feb 25, 2017 at 12:41 Vital Signs Pain Intensity: 0 Vital Signs Past 12 Hours Date Time Temp Pulse Resp B/P (MAP) Pulse Ox O2 Delivery O2 Flow Rate FiO2 02/25/17 12:13 78 16 110/51 (70) 94 Room Air 02/25/17 11:58 80 16 112/58 (76) 94 Room Air 02/25/17 11:43 80 10 105/55 (72) 98 Room Air 02/25/17 10:45 37 86 20 116/69 (85) 98 Room Air Notes Mental Status: alert / awake / arousable, participated in evaluation Pt Amnestic to Procedure: Yes Nausea / Vomiting: adequately controlled Pain: adequately controlled Airway Patency, RR, SpO2: stable & adequate BP & HR: stable & adequate Hydration State: stable & adequate Anesthetic Complications: no major complications apparent
== END | disposition home or self-care (01) ==
LOC: C.GI 10:22
PROVIDERS: ATTEND Internal Medicine
DX: K21.0 Gastro-esophageal reflux disease with esophagitis (principal); K44.9 Diaphragmatic hernia without obstruction or gangrene; M19.90 Unspecified osteoarthritis, unspecified site; J44.9 Chronic obstructive pulmonary disease, unspecified; F32.9 Major depressive disorder, single episode, unspecified; Z90.49 Acquired absence of other specified parts of digestive tract; Z87.891 Personal history of nicotine dependence

== ENCOUNTER → 2017-04-14 | Outpatient (CLI) | payer BC ==
[~2017-04-14] MED LIST changes: -ALBUTEROL HFA INHALER 8.5 GM INH ONE; -ERYT250T PO; -FENTANYL CITRATE INJ 50 MCG/1 ML 2 ML VIAL ONE; -LIDOCAINE HCL 2% 2 ML VIAL (20MG/ML) ONE; -PROPOFOL IV EMULSION 10 MG/ML 20 ML VIAL IV ONE; -SODIUM CHLORIDE 0.9% 500ML 500 ML IV ONE
[2017-04-14 13:04] LABS: BASO % 0.2 %; BASO ABS # 0.02 K/uL (0-0.2); COMPLETE YES; EOS % 1.3 %; HEMATOCRIT 44.5 % (37-47); IG% 0.5 %; LYMPH % 23.8 %; LYMPH ABS # 1.97 K/uL (1.2-3.4); MEAN CELL VOLUME 103.5 fL (80-100); MEAN CORPUSCULAR HEMOGLOBIN 33.7 pg (25-34); MEAN CORPUSCULAR HGB CONC 32.6 g/dl (32-36); MEAN PLATELET VOLUME 9.9 fL (7.4-10.4); MONO % 9.6 %; NEUT % 64.6 %; PLATELET COUNT 283 K/uL (130-400); WHITE BLOOD COUNT 8.27 K/uL (4.8-10.8)
[2017-04-14 13:30] LABS: CHOLESTEROL/HDL RATIO 1.7; THYROID STIMULATING HORMONE 1.16 uIu/ml (0.300-4.500)
== END | disposition home or self-care (01) ==
LOC: C.LAB1850 10:59
PROVIDERS: ATTEND Internal Medicine
DX: E83.119 Hemochromatosis, unspecified (principal); E04.2 Nontoxic multinodular goiter; I42.9 Cardiomyopathy, unspecified

== ENCOUNTER → 2017-05-01 | Outpatient (CLI) | payer BC ==
[~2017-05-01] MED LIST changes: -PYRI100T4 PO
== END | disposition home or self-care (01) ==
LOC: C.MAMM 12:28
PROVIDERS: ATTEND Internal Medicine
DX: M85.851 Other specified disorders of bone density and structure, right thigh (principal); M85.852 Other specified disorders of bone density and structure, left thigh

== ENCOUNTER → 2017-05-08 | Day surgery (SDC) | payer BC ==
[2017-04-24 12:19] VITALS: Ht 160 cm; Wt 53.2 kg
[~2017-05-08] VITALS: Ht 160 cm; Wt 53.2 kg
[~2017-05-08] MED LIST changes: +LIDOCAINE HCL 2% 2 ML VIAL (20MG/ML) ONE; +PROPOFOL IV EMULSION 10 MG/ML 20 ML VIAL IV ONE; +SODIUM CHLORIDE 0.9% 500ML 500 ML IV ONE
--- NOTE | 2017-05-08 13:03 | Endo History and Physical ---
History & Physical Date of Service: May 08, 2017. Chief Complaint: screening Referring Physician: History of Present Illness screening colonoscopy, hx ischemic colitis Past Medical History Neurological Disorder, Arthritis, Asthma, Reflux, Blood Dyscrasias, Heart Disease, COPD, Other, Depression Past Surgical History Hx Cardiac Surgery: Yes (HEART CATH X2, NO STENTS) Hx Internal Defibrillator: Yes (2009) Hx Pacemaker: No Hx Abdominal Surgery: Yes (APPY, TUBAL LIGATION) Hx of Implantable Prosthesis: No Hx Post-Op Nausea and Vomiting: Yes Hx Cancer Surgery: No Hx Thoracic Surgery: Yes (BRONCHOSCOPIES) Hx Orthopedic: No Hx Urinary Tract Surgery: No Family History IBD Social History Smoking Status: Former Smoker Hx Substance Use: No Allergies Coded Allergies: Galantamine (Verified Allergy, Unknown, "WENT IN TO SHOCK", 05/08/17) Midazolam (Verified Adverse Reaction, Intermediate, confusion WITH HIGH DOSE AND DECREASED BP, 05/08/17) over 4 ml pt confused for a week after Moxifloxacin (Verified Adverse Reaction, Mild, DIZZY, NAUSEA, 05/08/17) Current Medications Reported Home Medications Medications Dose Route/Sig Max Daily Dose Days Date Category Nicorette (Nicotine Polacrilex) 4 Mg Gum 12 Piece PO DAILY 02/25/17 Reported Zocor (Simvastatin) 20 Mg Tab 20 Mg PO QPM 02/18/17 Reported Prednisone 5 Mg Tab 5 Mg PO QAM 02/18/17 Reported Asmanex Twisthaler 120 Me (Mometasone Furoate (Inhalation) 220 Mcg/Inh Aer 2 Puff INH BID 02/18/17 Reported Mucinex Maximum Strength (Guaifenesin) 1,200 Mg Tab 1 Tab PO QAM 02/18/17 Reported Atrovent 0.02% Soln (Ipratropium [place]) 2.5 Ml Nebu 1 Dose PO BID 12/06/16 Reported Calcium + D (Calcium Carbonate-Vitamin D) 1 Tab Tab 1 Tab PO QAM 12/06/16 Reported Coreg (Carvedilol) 6.25 Mg Tab 6.25 Mg PO BID 12/06/16 Reported Coreg (Carvedilol) 3.125 Mg Tab 3.125 Mg PO BID 12/06/16 Reported Prinivil (Lisinopril) 20 Mg Tab 20 Mg PO BID 10/04/16 Reported Vitamin B12 (Cyanocobalamin) 1,000 Mcg Tab 2,500 Mcg PO QPM 09/11/16 Reported Chlor-Trimeton Allergy (Chlorpheniramine Maleate) 12 Mg Tab 1 Tab PO QAM 08/12/16 Reported Wellbutrin Sr (Bupropion Hcl) 150 Mg Tab 150 Mg PO QAM 12/29/15 Reported Multivitamin (Multivitamins) Tab 1 Tab PO QPM 12/29/15 Reported Vitamin B Complex (B-Complex Vitamins) 1 Tab Tab 1 Tab PO QAM 12/29/15 Reported Combivent Respimat (Ipratropium-Albuterol) 1 Aer Aer 1 Puffs INH QID PRN 12/29/15 Reported Brovana (Arformoterol Tartrate) 15 Mcg/2 Ml Neb 15 Mcg IN BID 12/29/15 Reported Effexor Extended Rel (Venlafaxine Hcl) 150 Mg Cap 150 Mg PO QAM 12/29/15 Reported Vital Signs Weight (Kilograms): 53.18 Height (Feet): 5 Height (Inches): 3 Physical Exam General Appearance: WD/WN, no apparent distress Respiratory/Chest: Auscultation: breath sounds normal Cardiovascular: Heart Auscultation: RRR Abdomen: Bowel Sounds: normal Inspection & Palpation: soft, non-distended, no tenderness, guarding & rebound Assessment and Plan for colonoscopy
--- NOTE | 2017-05-08 13:36 | Discharge Instructions ---
Endoscopy Patient Instructions Date / Procedure(s) Performed May 08, 2017. Colonoscopy Allergy Information Coded Allergies: Galantamine (Verified Allergy, Unknown, "WENT IN TO SHOCK", 05/08/17) Midazolam (Verified Adverse Reaction, Intermediate, confusion WITH HIGH DOSE AND DECREASED BP, 05/08/17) over 4 ml pt confused for a week after Moxifloxacin (Verified Adverse Reaction, Mild, DIZZY, NAUSEA, 05/08/17) Discharge Date / Findings May 08, 2017. focal colitis as erosion at 50 cm hemorrhiods possible rectal prolapse Medication Instructions Stopped Medication(s): MULTIVITAMIN Restart Stopped Medication(s): Reported Home Medications Medications Dose Route/Sig Max Daily Dose Days Date Category Nicorette (Nicotine Polacrilex) 4 Mg Gum 12 Piece PO DAILY 02/25/17 Reported Zocor (Simvastatin) 20 Mg Tab 20 Mg PO QPM 02/18/17 Reported Prednisone 5 Mg Tab 5 Mg PO QAM 02/18/17 Reported Asmanex Twisthaler 120 Me (Mometasone Furoate (Inhalation) 220 Mcg/Inh Aer 2 Puff INH BID 02/18/17 Reported Mucinex Maximum Strength (Guaifenesin) 1,200 Mg Tab 1 Tab PO QAM 02/18/17 Reported Atrovent 0.02% Soln (Ipratropium [place]) 2.5 Ml Nebu 1 Dose PO BID 12/06/16 Reported Calcium + D (Calcium Carbonate-Vitamin D) 1 Tab Tab 1 Tab PO QAM 12/06/16 Reported Coreg (Carvedilol) 6.25 Mg Tab 6.25 Mg PO BID 12/06/16 Reported Coreg (Carvedilol) 3.125 Mg Tab 3.125 Mg PO BID 12/06/16 Reported Prinivil (Lisinopril) 20 Mg Tab 20 Mg PO BID 10/04/16 Reported Vitamin B12 (Cyanocobalamin) 1,000 Mcg Tab 2,500 Mcg PO QPM 09/11/16 Reported Chlor-Trimeton Allergy (Chlorpheniramine Maleate) 12 Mg Tab 1 Tab PO QAM 08/12/16 Reported Wellbutrin Sr (Bupropion Hcl) 150 Mg Tab 150 Mg PO QAM 12/29/15 Reported Multivitamin (Multivitamins) Tab 1 Tab PO QPM 12/29/15 Reported Vitamin B Complex (B-Complex Vitamins) 1 Tab Tab 1 Tab PO QAM 12/29/15 Reported Combivent Respimat (Ipratropium-Albuterol) 1 Aer Aer 1 Puffs INH QID PRN 12/29/15 Reported Brovana (Arformoterol Tartrate) 15 Mcg/2 Ml Neb 15 Mcg IN BID 12/29/15 Reported Effexor Extended Rel (Venlafaxine Hcl) 150 Mg Cap 150 Mg PO QAM 12/29/15 Reported Reported Home Medications Medications Dose Route/Sig Max Daily Dose Days Date Category Nicorette (Nicotine Polacrilex) 4 Mg Gum 12 Piece PO DAILY 02/25/17 Reported Zocor (Simvastatin) 20 Mg Tab 20 Mg PO QPM 02/18/17 Reported Prednisone 5 Mg Tab 5 Mg PO QAM 02/18/17 Reported Asmanex Twisthaler 120 Me (Mometasone Furoate (Inhalation) 220 Mcg/Inh Aer 2 Puff INH BID 02/18/17 Reported Mucinex Maximum Strength (Guaifenesin) 1,200 Mg Tab 1 Tab PO QAM 02/18/17 Reported Atrovent 0.02% Soln (Ipratropium [place]) 2.5 Ml Nebu 1 Dose PO BID 12/06/16 Reported Calcium + D (Calcium Carbonate-Vitamin D) 1 Tab Tab 1 Tab PO QAM 12/06/16 Reported Coreg (Carvedilol) 6.25 Mg Tab 6.25 Mg PO BID 12/06/16 Reported Coreg (Carvedilol) 3.125 Mg Tab 3.125 Mg PO BID 12/06/16 Reported Prinivil (Lisinopril) 20 Mg Tab 20 Mg PO BID 10/04/16 Reported Vitamin B12 (Cyanocobalamin) 1,000 Mcg Tab 2,500 Mcg PO QPM 09/11/16 Reported Chlor-Trimeton Allergy (Chlorpheniramine Maleate) 12 Mg Tab 1 Tab PO QAM 08/12/16 Reported Wellbutrin Sr (Bupropion Hcl) 150 Mg Tab 150 Mg PO QAM 12/29/15 Reported Multivitamin (Multivitamins) Tab 1 Tab PO QPM 12/29/15 Reported Vitamin B Complex (B-Complex Vitamins) 1 Tab Tab 1 Tab PO QAM 12/29/15 Reported Combivent Respimat (Ipratropium-Albuterol) 1 Aer Aer 1 Puffs INH QID PRN 12/29/15 Reported Brovana (Arformoterol Tartrate) 15 Mcg/2 Ml Neb 15 Mcg IN BID 12/29/15 Reported Effexor Extended Rel (Venlafaxine Hcl) 150 Mg Cap 150 Mg PO QAM 12/29/15 Reported Provider Instructions Activity Restrictions - No exercising or heavy lifting for 24 hours. - Do not drink alcohol the day of the procedure. - Do not drive a car or operate machinery until the day after the procedure. - Do not make any important decisions or sign important papers in 24 hours after the procedure. Following Day: - Return to full activity which may include returning to work/school. Diet Start your diet with liquids and light foods (jello, soup, juice, toast). Then eat your usual diet if not nauseated. Treatment For Common After Affects For mild abdominal pain, bloating, or excessive gas: - Rest - Eat lightly - Lie on right side Follow-Up Information Follow-up with DR. QUINTANILLA as scheduled Anesthesia Information What You Should Know You have had a procedure that required some medicine to reduce anxiety and discomfort. This treatment is called moderate sedation. After receiving the treatment, you may be sleepy, but you will be able to breathe on your own. The effects of the treatment may last for several hours. Follow these instructions along with Activity/Diet recommendations noted above: * Do NOT do anything where dizziness or clumsiness would be dangerous. * Rest quietly at home today, then you can be up and about tomorrow. * Have a responsible person stay with you the rest of today. * You may have had an I.V. today. If so, you may take the dressing off later today. Recommendations Call your doctor if: * Trouble breathing * Continuous vomiting for more than 24 hours * Temperature above 101 degrees * Severe abdominal pain or bloating * Pain not relieved by pain medicine ordered * There is increased drainage or redness from any incision * A large amount of rectal bleeding greater than 2-3 tablespoons. (If you had a polyp/s removed or have hemorrhoids, a small amount of blood - from the rectum is to be expected.) * You have any unanswered questions or concerns. IN THE EVENT OF A SERIOUS EMERGENCY, GO TO THE NEAREST EMERGENCY ROOM Your discharge instructions were prepared by provider Joe Diaz. Patient Instructions Signature Page Sol Wen Patient (or Guardian) Signature/Date: I have read and understand the instructions given to me by my caregivers. Caregiver/RN/Doctor Signature/Date: The above-named patient and/or guardian has received patient instructions on this date. + Original Patient Signature Page (only) stays with chart. Please make copy for patient.
--- NOTE | 2017-05-08 13:47 | GI REPORT ---
Procedure Date: 05/08/2017 1:01 PM Procedure: Colonoscopy Indications: Screening for colorectal malignant neoplasm Medicines: Propofol per Anesthesia Complications: No immediate complications. Estimated blood loss: Minimal. Estimated Blood Loss: Estimated blood loss was minimal. Procedure: Pre-Anesthesia Assessment: - Prior to the procedure, a History and Physical was performed, and patient medications and allergies were reviewed. The patient's tolerance of previous anesthesia was also reviewed. The risks and benefits of the procedure and the sedation options and risks were discussed with the patient. All questions were answered, and informed consent was obtained. Prior Anticoagulants: The patient has taken no previous anticoagulant or antiplatelet agents. ASA Grade Assessment: III - A patient with severe systemic disease. After reviewing the risks and benefits, the patient was deemed in satisfactory condition to undergo the procedure. After I obtained informed consent, the scope was passed under direct vision. Throughout the procedure, the patient's blood pressure, pulse, and oxygen saturations were monitored continuously. The scope was introduced through the anus and advanced to the terminal ileum, with identification of the appendiceal orifice and IC valve. The colonoscopy was performed without difficulty. The patient tolerated the procedure well. The quality of the bowel preparation was good. Findings: The perianal and digital rectal examinations were normal. Pertinent negatives include normal sphincter tone, no palpable rectal lesions, no anal lesion or abnormality was detected and normal stool Hemoccult. A single (solitary) fifteen mm ulcer was found at 50 cm proximal to the anus. No bleeding was present. No stigmata of recent bleeding were seen. Biopsies were taken with a cold forceps for histology. Estimated blood loss was minimal. Verification of patient identification for the specimen was done by the physician and filling technician using the patient's name and medical record number. Many small-mouthed diverticula were found in the sigmoid colon. Non-bleeding internal hemorrhoids were found during retroflexion. The hemorrhoids were mild. A localized area of mildly prolpased mucosa with surface inflammation mucosa was found in the rectum. The terminal ileum appeared normal. Impression: - A single (solitary) ulcer at 50 cm proximal to the anus. Biopsied. - Diverticulosis in the sigmoid colon. - Non-bleeding internal hemorrhoids. - Prolpased mucosa with surface inflammation mucosa in the rectum. - The examined portion of the ileum was normal. Recommendation: - Discharge patient to home (ambulatory). - Resume regular diet. - Continue present medications. - Await pathology results. - Return to referring physician as previously scheduled. - Area of possible rectal prolapse with inflammation. Keep stools soft ( fiber/stool softeners to reduce straining) MD Joe Henderson MD 05/08/2017 1:46:50 PM This report has been signed electronically. Note Initiated On: 05/08/2017 1:01 PM I attest to the content of the Intraoperative Record and orders documented therein, exceptions below
[2017-05-08 14:06] VITALS: BP 111/64; PULSE 75; O2SAT 95
--- NOTE | 2017-05-08 14:10 | Anesthesiology Progress Note ---
Anesthesia Post Op Note Date & Time May 08, 2017 at 14:10 Vital Signs Pain Intensity: 0 Vital Signs Past 12 Hours Date Time Temp Pulse Resp B/P (MAP) Pulse Ox O2 Delivery O2 Flow Rate FiO2 05/08/17 14:06 75 20 111/64 (80) 95 Room Air 05/08/17 13:50 76 18 116/76 (89) 96 Room Air 05/08/17 13:35 79 16 93/54 (67) 98 Room Air 05/08/17 12:55 36.5 85 16 115/52 (73) 96 Room Air Notes Mental Status: alert / awake / arousable, participated in evaluation Pt Amnestic to Procedure: Yes Nausea / Vomiting: adequately controlled Pain: adequately controlled Airway Patency, RR, SpO2: stable & adequate BP & HR: stable & adequate Hydration State: stable & adequate Anesthetic Complications: no major complications apparent
== END | disposition home or self-care (01) ==
LOC: C.GI 12:27
PROVIDERS: ATTEND Internal Medicine Gastroenterology
DX: Z12.11 Encounter for screening for malignant neoplasm of colon (principal); K63.3 Ulcer of intestine; K57.30 Diverticulosis of large intestine without perforation or abscess without bleeding; J44.9 Chronic obstructive pulmonary disease, unspecified; I10 Essential (primary) hypertension; K64.8 Other hemorrhoids; J45.909 Unspecified asthma, uncomplicated; Z90.89 Acquired absence of other organs; Z98.51 Tubal ligation status; Z87.891 Personal history of nicotine dependence; F32.9 Major depressive disorder, single episode, unspecified; Z68.20 Body mass index [BMI] 20.0-20.9, adult; Z98.890 Other specified postprocedural states

== ENCOUNTER → 2017-09-08 | Outpatient (CLI) | payer BC ==
[~2017-09-08] MED LIST changes: -LIDOCAINE HCL 2% 2 ML VIAL (20MG/ML) ONE; -PROPOFOL IV EMULSION 10 MG/ML 20 ML VIAL IV ONE; -SODIUM CHLORIDE 0.9% 500ML 500 ML IV ONE
--- NOTE | 2017-09-08 17:02 | DIAGNOSTIC IMAGING REPORT ---
CHEST 2 VIEWS ROUTINE CLINICAL HISTORY: COUGH,FATIGUE,SOB COMPARISON STUDY: 09/11/2016 FINDINGS: The cardiac and mediastinal contours are normal. There is pulmonary emphysema. Since the prior study, the patient has developed right upper lobe airspace opacities, likely representing a pneumonia given history of cough. Films subsequent to treatment are recommended in follow-up. There are no pleural effusions. There is no failure.[ There is a left subclavian pacer/defibrillator. IMPRESSION: 1. Interval development of right upper lobe airspace opacity suspicious for pneumonia. Films subsequent to treatment are recommended in follow-up. Electronically signed by: Kvng Bess M.D. 09/08/2017 5:01 PM Dictated Date/Time: 09/08/2017 4:54 PM
== END | disposition home or self-care (01) ==
LOC: C.RAD1850 16:43
PROVIDERS: ATTEND Internal Medicine
DX: R53.83 Other fatigue (principal); R06.02 Shortness of breath; R05 Cough; R91.8 Other nonspecific abnormal finding of lung field

== ENCOUNTER → 2017-09-25 | Outpatient (CLI) | payer BC ==
--- NOTE | 2017-09-25 14:19 | DIAGNOSTIC IMAGING REPORT ---
CHEST 2 VIEWS ROUTINE CLINICAL HISTORY: 67 years-old Female presenting with Z87.01 History of [id number]. TECHNIQUE: PA and lateral views of the chest were obtained. COMPARISON: 09/08/2017. FINDINGS: Left subclavian implanted cardiac defibrillator with lead to the right ventricular apex. Atherosclerosis of aortic arch. Cardiac silhouette normal in size. Interval decrease in the now linear/bandlike opacity in the right upper lung. No new focal opacity. No pleural effusion or pneumothorax. Osseous structures normal. Upper abdomen normal. IMPRESSION: 1. Interval decrease in the right upper lobe consolidation with minimal residual linear opacity suggesting scarring or atelectasis. Electronically signed by: Kanu Andres M.D. 09/25/2017 2:18 PM Dictated Date/Time: 09/25/2017 2:16 PM
== END | disposition home or self-care (01) ==
LOC: C.RAD1850 14:08
PROVIDERS: ATTEND Internal Medicine
DX: Z09 Encounter for follow-up examination after completed treatment for conditions other than malignant neoplasm (principal); Z87.01 Personal history of pneumonia (recurrent)

== ENCOUNTER → 2017-10-01 | Outpatient (CLI) | payer BC ==
--- NOTE | 2017-10-01 14:13 | MAMMOGRAPHY REPORT ---
BILATERAL DIGITAL SCREENING MAMMOGRAM TOMOSYNTHESIS WITH CAD: 10/01/2017 CLINICAL HISTORY: Routine screening. Patient has no complaints. TECHNIQUE: Breast tomosynthesis in addition to standard 2D mammography was performed. Current study was also evaluated with a Computer Aided Detection (CAD) system. COMPARISON: Comparison is made to exams dated: 06/20/2016 mammogram, 03/08/2015 mammogram - [facility], 05/25/2014 mammogram, 05/31/2013 mammogram, 05/03/2013 mammogram, and 04/28/2012 mammogram. BREAST COMPOSITION: The tissue of both breasts is heterogeneously dense, which may obscure small mas ses. FINDINGS: No suspicious masses, calcifications, or areas of architectural distortion are noted in ei ther breast. There has been no significant interval change compared to prior exams. A cardiac device overlies the left pectoralis muscle on the MLO view. IMPRESSION: ACR BI-RADS CATEGORY 1: NEGATIVE There is no mammographic evidence of malignancy. A 1 year screening mammogram is recommended. The pa tient will receive written notification of the results. Approximately 10% of breast cancers are not detected with mammography. A negative mammographic report should not delay biopsy if a clinically suggestive mass is present. Annie Mueller M.D. ah/:10/01/2017 11:40:55 Law Office Receptionist: Taina FRANCIS)(José Luis), [facility] letter sent: Normal 1/2 BI-RADS Code: ACR BI-RADS Category 1: Negative
== END | disposition home or self-care (01) ==
LOC: C.MAMM 11:14
PROVIDERS: ATTEND Internal Medicine
DX: Z12.31 Encounter for screening mammogram for malignant neoplasm of breast (principal)

== ENCOUNTER → 2017-10-10 | Outpatient (CLI) | payer BC ==
--- NOTE | 2017-10-10 12:24 | DIAGNOSTIC IMAGING REPORT ---
SOFT TISS HEAD/NECK-THYROID HISTORY: Clear E04.2 Multinodular [id number] COMPARISON: None. FINDINGS: Right lobe: Maximum dimension 4.9 cm. Several hypoechoic nodules and/or cysts measuring up to 5 mm. No evidence for dominant nodule. Left lobe: Maximum linear dimension 4.7 cm. Several small nodules are present. Dominant nodule mid left thyroid demonstrating several microcalcifications and measuring 2.2 x 1.1 cm. Isthmus: No nodules. IMPRESSION: 1. 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 2. Dominant nodule measures 2.2 x 1.1 cm in the mid left thyroid. 3. Fine-needle aspiration under ultrasound guidance is suggested as follow-up. The above report was generated using voice recognition software. It may contain grammatical, syntax or spelling errors. Electronically signed by: Negrito Smalls M.D. 10/10/2017 12:23 PM Dictated Date/Time: 10/10/2017 12:19 PM
== END | disposition home or self-care (01) ==
LOC: C.ULTR 11:28
PROVIDERS: ATTEND Internal Medicine
DX: E04.2 Nontoxic multinodular goiter (principal)

== ENCOUNTER → 2017-10-16 | Outpatient (CLI) | payer BC ==
--- NOTE | 2017-10-16 13:33 | Discharge Instructions ---
Discharge Instructions Procedure Procedure Date: Oct 16, 2017. Reason for visit: Thyroid Cyst, Us Done 10/10/17. Discharge Discharge Date: Oct 16, 2017. Discharge Diagnosis: left lobe thyroid nodule Instructions Activity Recommendations: No limitations Return to School/Work: no limitations Recommended Home Diet: Resume Previous Diet Provider Instructions: Ultrasound guided fine-needle aspiration of a left lobe thyroid nodule is performed with 3 passes utilizing 25-gauge needles. The procedure was well tolerated and without immediate complication. ACTIVITY RECOMMENDATIONS: * Rest today. * Resume regular activity in one day. MEDICATIONS: * May take Tylenol or Ibuprofen as needed for pain. DIET: * Resume previous diet. SPECIAL CARE INSTRUCTIONS: Call your doctor if: * Temperature above 101 degrees F. * Pain not relieved by pain medicine ordered. * Increased drainage or redness from incision. * Notify your doctor with any questions or concerns. Call your doctor or go to the nearest Emergency Department if you experience: * Increased chest pain or shortness of breath. FOLLOW UP VISIT: Follow-up with Referring Physician as scheduled. Allergies Coded Allergies: Galantamine (Verified Allergy, Unknown, "WENT IN TO SHOCK", 05/08/17) Midazolam (Verified Adverse Reaction, Intermediate, confusion WITH HIGH DOSE AND DECREASED BP, 05/08/17) over 4 ml pt confused for a week after Moxifloxacin (Verified Adverse Reaction, Mild, DIZZY, NAUSEA, 05/08/17) Carolina Grady Recommendations: Call your doctor if: * Temperature above 101 degrees * Pain not relieved by pain medicine ordered * There is increased drainage or redness from any incision * You have any unanswered questions or concerns. Your Doctors Instructions noted above were prepared by provider Trino Ramirez. Patient Signature Section: Patient Instructions Signature Page Sol Wen Patient (or Guardian) Signature/Date: I have read and understand the instructions given to me by my caregivers. Caregiver/RN/Doctor Signature/Date: The above-named patient and/or guardian has received patient instructions on this date. + Original Patient Signature Page (only) stays with chart. Please make copy for patient.
--- NOTE | 2017-10-16 13:47 | DIAGNOSTIC IMAGING REPORT ---
ULTRASOUND-GUIDED FINE-NEEDLE ASPIRATION THYROID CLINICAL HISTORY: Left lobe thyroid nodule. COMPARISON STUDY: Thyroid ultrasound dated 10/10/2017. PROCEDURE: The risks, benefits, and alternatives to the procedure were discussed with the patient. Written informed consent was obtained. The patient was placed supine in ultrasound, and the 2.2 cm nodule in the left lobe of the thyroid was localized by ultrasound and selected for fine needle aspiration. The left neck was prepped and draped in the usual sterile fashion. The nodule was aspirated under ultrasound guidance with 3 passes utilizing 25-gauge needles. Specimens were reviewed by the pathologist in real-time and deemed adequate for diagnosis. The patient tolerated the procedure well and left the department in satisfactory condition. IMPRESSION: Completed fine-needle aspiration of a left thyroid nodule as above. Electronically signed by: Trino Ramirez M.D. 10/16/2017 1:46 PM Dictated Date/Time: 10/16/2017 1:35 PM
== END | disposition home or self-care (01) ==
LOC: C.ULTR 11:26
PROVIDERS: ATTEND Internal Medicine
DX: E04.1 Nontoxic single thyroid nodule (principal)

== ENCOUNTER → 2017-11-26 | Day surgery (SDC) | payer BC ==
[2017-11-24 09:24] VITALS: Ht 160 cm; Wt 54.2 kg
--- NOTE | 2017-11-24 10:05 | PAT Medication Instructions ---
Service Date November 24, 2017. Current Home Medication List Acetaminophen (Tylenol), 1 TAB PO Q8 PRN for Pain or Fever Arformoterol Tartrate (Brovana), 15 MCG IN BID Azithromycin (Zithromax), 250 MG PO 3XWK B-Complex Vitamins (Vitamin B Complex), 1 TAB PO QAM Bupropion HCl (Bupropion HCl Sr), 1 TAB PO QAM Calcium Carbonate-Vitamin D (Calcium + D), 1 TAB PO QAM Carvedilol (Coreg), 3.125 MG PO BID Carvedilol (Coreg), 6.25 MG PO BID Chlorpheniramine Maleate (Chlor-Trimeton), 4 MG PO QAM Cyanocobalamin (Vitamin B-12), 1 TAB PO QPM Ibuprofen Tab (Advil), 200 MG PO QD PRN for Headache Ipratropium Brutus (Atrovent 0.02% Soln), 1 DOSE PO BID Ipratropium-Albuterol (Combivent Respimat), 1 PUFFS INH QID PRN for Shortness of Breath Lisinopril (Prinivil), 20 MG PO BID Mometasone Furoate (Inhalation (Asmanex Twisthaler 120 Me), 2 PUFF INH BID Multivitamin (Multivitamin), 1 TAB PO QPM Naproxen (Aleve), 220 MG PO QD PRN for Pain Nicotine Polacrilex (Nicorette), 10 PIECE PO DAILY Nystatin (Topical) (Nystatin), 1 DOSE PO BID PRN for thrush Prednisone (Prednisone), 5 MG PO QAM Simvastatin (Zocor), 20 MG PO QPM Venlafaxine Hcl (Effexor Extended Rel), 150 MG PO QAM Medication Instructions For Your Scheduled Surgery - Continue as directed: Nystatin (Topical) (Nystatin), 1 DOSE PO BID PRN for thrush - Hold the following medications 24 hours prior to surgery: Lisinopril (Prinivil), 20 MG PO BID - Hold the following medications the morning of surgery: B-Complex Vitamins (Vitamin B Complex), 1 TAB PO QAM Ibuprofen Tab (Advil), 200 MG PO QD PRN for Headache Calcium Carbonate-Vitamin D (Calcium + D), 1 TAB PO QAM Nicotine Polacrilex (Nicorette), 10 PIECE PO DAILY Naproxen (Aleve), 220 MG PO QD PRN for Pain - Take the following medications the morning of surgery with a sip of water OTHERWISE NOTHING TO EAT OR DRINK AFTER MIDNIGHT: Venlafaxine Hcl (Effexor Extended Rel), 150 MG PO QAM Acetaminophen (Tylenol), 1 TAB PO Q8 PRN for Pain or Fever (may take if needed up to 4 hours prior to surgery) Carvedilol (Coreg), 3.125 MG PO BID Carvedilol (Coreg), 6.25 MG PO BID Arformoterol Tartrate (Brovana), 15 MCG IN BID Ipratropium Brutus (Atrovent 0.02% Soln), 1 DOSE PO BID Ipratropium-Albuterol (Combivent Respimat), 1 PUFFS INH QID PRN for Shortness of Breath Bupropion HCl (Bupropion HCl Sr), 1 TAB PO QAM Mometasone Furoate (Inhalation (Asmanex Twisthaler 120 Me), 2 PUFF INH BID Prednisone (Prednisone), 5 MG PO QAM Azithromycin (Zithromax), 250 MG PO 3XWK Chlorpheniramine Maleate (Chlor-Trimeton), 4 MG PO QAM - Take the following medications as scheduled the night before surgery: Carvedilol (Coreg), 3.125 MG PO BID Carvedilol (Coreg), 6.25 MG PO BID Arformoterol Tartrate (Brovana), 15 MCG IN BID Ipratropium Brutus (Atrovent 0.02% Soln), 1 DOSE PO BID Ipratropium-Albuterol (Combivent Respimat), 1 PUFFS INH QID PRN for Shortness of Breath Cyanocobalamin (Vitamin B-12), 1 TAB PO QPM Simvastatin (Zocor), 20 MG PO QPM Mometasone Furoate (Inhalation (Asmanex Twisthaler 120 Me), 2 PUFF INH BID Multivitamin (Multivitamin), 1 TAB PO QPM If you have any questions please call us at [phone] or [phone] or [phone]
[~2017-11-26] VITALS: Ht 160 cm; Wt 54.2 kg
[~2017-11-26] MED LIST changes: +500ML BSS 0.3ML EPI 1:1000PF IRRIG ONE; +ACET-1256 PO; +ACETAMINOPHEN 325 MG TAB PO PRN; +AMVISC PLUS 0.8ML SYRINGE INT OCU ONE; +ATROPINE SULFATE 0.1 MG/ML 5ML SYR IV PRN; +AZIT250T PO; +AcetaZOLAMIDE 250 MG TAB PO SCH; +BETAXOLOL HCL 0.25% OP SUSP PER DROP CHARGE OPR SCH; +BRIMONIDINE TART 0.2% OP SOLN PER DROP CHARGE ONE; +BRIMONIDINE TARTRATE 0.2% 5ML ONE; +BSS FLUSH ONE; -BUPR150T7 PO; -CHLO12TA2 PO; +CHLO4TAB PO; -CYAN100020 PO; +ENDOCOAT 0.85ML SYRINGE INT OCU ONE; +EpINEphrine INJ 1MG/ML AMP 1 MG/ML AMP ONE; +FENTANYL CITRATE INJ 50 MCG/1 ML 2 ML VIAL ONE; -GUAI1TAB69 PO; +IBUP-103 PO; +LACTATED RINGER'S 1000ML 500 ML IV SCH; +LIDOCAINE 4% OP SOLN DROP CHARGE ONE; +LIDOCAINE 4% OP SOLN DROP CHARGE OPR SCH; +LIDOCAINE HCL 1% MPF 2 ML VIAL ONE; +LIDOCAINE HCL 2% 2 ML VIAL (20MG/ML) ONE; +MIDAZOLAM HCL 1 MG/ML 2ML VIAL ONE; +MIX: 4ML BSS 1ML EPI 1:1000 PF INSTIL ONE; +MOXIFLOXACIN OPH SOLN PER DROP CHARGE ONE; +NAPR1TAB9 PO; +NYST100033 PO; +OCUCOAT 1 ML SOLN IO ONE; +ONDANSETRON INJ 2 MG/ML 2 ML VIAL ONE; +POVIDONE-IODINE OP SOLN 30 ML BTL ONE; +PROPARACAINE 0.5% OP SOLN PER DROP CHARGE OPR SCH; +PROPOFOL IV EMULSION 10 MG/ML 20 ML VIAL ONE; +TOBRAMYCIN/DEXAMETHASONE OPH OINT PER APPLN CHARGE ONE; +VTMB122500 PO; +WLLSR150 PO
[2017-11-26] MEDS: PHENYLEPHRINE HCL 2.5% OP SOLN PER DROP CHARGE OPR SCH ×2 (06:40→06:45)
[2017-11-26] MEDS: TROPICAMIDE 1% OP SOLN PER DROP CHARGE OPR SCH ×2 (06:40→06:45)
[2017-11-26] MEDS: MOXIFLOXACIN OPH SOLN PER DROP CHARGE OPR SCH ×2 (06:41→06:50)
[2017-11-26] MEDS: CYCLOPENTOLATE HCL 1% OP SOLN PER DROP CHARGE OPR SCH ×2 (06:41→06:46)
--- NOTE | 2017-11-26 07:13 | [facility] Operative Report ---
Operative Report Date of Service November 26, 2017. Operative Report 1. PREOPERATIVE DIAGNOSIS: Senile nuclear cataract, right eye. 2. POSTOPERATIVE DIAGNOSIS: Senile nuclear cataract, right eye. 3. PROCEDURE: Phacoemulsification of right cataract with posterior chamber lens implant, type [employer], model MI60L, power +30.0 diopters. ANESTHESIA: Local standby. SURGEON: Dr. Weinberg. COMPLICATIONS: None. OPERATING TIME: 10 minutes. 4. OPERATION AND FINDINGS: DESCRIPTION OF PROCEDURE: The right pupil was dilated. The anesthetic was administered using a topical technique. The right eye was prepped and draped. A speculum was placed. A clear corneal incision was formed. The chamber was filled with Amvisc Plus and Endocoat. Epinephrine solution was used. A paracentesis was placed. A capsulorrhexis was performed. The nucleus was hydrodissected. The lens was removed with phacoemulsification. Time was 2.77 seconds. The aspiration unit was used to remove the cortex. The capsule was filled with Amvisc Plus. The lens implant was folded and placed into the capsule. The incision was hydrated. The Amvisc was aspirated. The wound was secure. The chamber was deep. The pupil was round. Brimonidine, TobraDex ointment and Vigamox solution were placed. The speculum was removed. The patient was returned to the Recovery Room in stable condition. I attest to the content of the Intraoperative Record and any orders documented therein. Any exceptions are noted below. The scribe's documentation has been prepared in my presence, under my direction and personally reviewed by me in its entirety. I confirm that the note above accurately reflects all work, treatment, procedures, and medical decision making performed by me. I personally scribed for Gm Weinberg M.D. ([email or web address]) on 11/26/17 at 07:13. Electronically submitted by Mana Erazo ([email or web address]).
--- NOTE | 2017-11-26 07:16 | Discharge Instructions-SurgCtr ---
Discharge Instructions Date of Service November 26, 2017. Visit Reason for Visit: Right Cataract Discharge Discharge Diagnosis / Problem: lens implant right eye Discharge Goals Goal(s): Improve function Activity Recommendations Activity Limitations: resume your previous activity Lifting Limitations: no more than 10 pounds Exercise/Sports Limitations: gradually increase as tolerated May Resume Sexual Activity: when tolerated Shower/Bathe: tomorrow Driving or Machine Use: resume 1 day after discharge Anesthesia . Post Anesthesia Instructions: If you have had General Anesthesia or IV Sedation: * Do not drive today. * Resume driving when surgeon permits. * Do not make important decisions or sign legal documents today. * Call surgeon for: 1. Temperature elevations greater than 101 degrees F. 2. Uncontrollable pain. 3. Excessive bleeding. 4. Persistent nausea and vomiting. 5. Medication intolerance (nausea, vomiting or rash). * For nausea and vomiting use only clear liquids such as: tea, soda, bouillon until nausea subsides, then gradually increase diet as tolerated. * If you have any concerns or questions, call your surgeon's office. If physician is unavailable and it is an emergency, call 911 or go to the nearest emergency room. . Instructions / Follow-Up Instructions / Follow-Up ACTIVITY RECOMMENDATIONS: * Light activities. * Mild irritation and blurred vision are common for the first few days. * You may walk outside, read, watch television. * Redness around the white part of the eye is common. MEDICATIONS: Resume previous medications unless instructed otherwise by your surgeon. * Take white Diamox (Acetazolamide) tablet at 1 pm today. Start all eye drops at 1 pm today: * Eye drops (today and tomorrow): Prednisone - one drop in operative eye every 3 hours while awake Ofloxacin - one drop in operative eye every 3 hours while awake SPECIAL CARE INSTRUCTIONS: * Tape plastic shield over eye to sleep at night. Call your doctor at with any concerns or problems. FOLLOW UP VISIT: Follow-up with Dr Weinberg at [place] office as scheduled. Diet Recommendations Home Diet: no limitations Procedures Procedures Performed: Right Cataract Phacoemulsification With Intraocular Lens Implant Pending Studies Studies pending at discharge: no Medical Emergencies . Who to Call and When: Medical Emergencies: If at any time you feel your situation is an emergency, please call 911 immediately. . Non-Emergent Contact Non-Emergency issues call your: Manager Council Call Non-Emergent contact if: your pain is not controlled [phone] . . "Provider Documentation" section prepared by Gm Weinberg. .
[2017-11-26 07:22] VITALS: TEMP 36.3
--- NOTE | 2017-11-26 07:41 | Anesthesia Progress Nt - [facility] ---
Anesthesia Post Op Note Date & Time November 26, 2017 at 07:40 Vital Signs Pain Intensity: 0 Vital Signs Past 12 Hours Date Time Temp Pulse Resp B/P (MAP) Pulse Ox O2 Delivery O2 Flow Rate FiO2 11/26/17 07:22 36.3 71 12 127/74 (91) 97 Room Air 11/26/17 06:32 36.6 81 16 130/72 (91) 95 Room Air Notes Mental Status: alert / awake / arousable, participated in evaluation Pt Amnestic to Procedure: Yes Nausea / Vomiting: adequately controlled Pain: adequately controlled Airway Patency, RR, SpO2: stable & adequate BP & HR: stable & adequate Hydration State: stable & adequate Anesthetic Complications: no major complications apparent
[2017-11-26 07:48] VITALS: BP 115/69; PULSE 69; O2SAT 92
== END | disposition home or self-care (01) ==
LOC: X.SURG 06:19
PROVIDERS: ATTEND Specialist
DX: H25.11 Age-related nuclear cataract, right eye (principal); I10 Essential (primary) hypertension; I51.9 Heart disease, unspecified; J44.9 Chronic obstructive pulmonary disease, unspecified; I42.9 Cardiomyopathy, unspecified; F32.9 Major depressive disorder, single episode, unspecified; Z90.49 Acquired absence of other specified parts of digestive tract; Z98.890 Other specified postprocedural states; Z95.810 Presence of automatic (implantable) cardiac defibrillator; Z79.899 Other long term (current) drug therapy; Z87.891 Personal history of nicotine dependence

== ENCOUNTER 2023-11-04 10:09 | Observation (INO) ==
--- NOTE | 2023-11-04 11:03 | Emergency Department Note ---
Impression & Plan DVT (deep venous thrombosis), Acute leg pain, Leukocytosis, Elevated troponin ED Provider Note NAME: LAURE INIGUEZ AGE: 73 SEX: F : 1950 ARRIVES VIA: Walk-In INFORMANT: Patient ED PROVIDER(S): Cristofer Goldsmith DO CHIEF COMPLAINT: Left lower extremity pain HPI: Patient is a 73-year-old female who presents to the ER for left lower extremity pain circumferentially tracking from her calf all the way up to her groin. She notes she bent over and felt a severe pain in the left groin and throughout her left leg yesterday. This has been present since then. She admits to circumferential pain around her left lower extremity. She notes that she has had some discoloration of her extremity in combination with this and notes that has become more purple. She denies any headache or change in vision. No chest pain or shortness of breath. No nausea, vomiting, or diarrhea. No dysuria, urgency, or frequency. No other exacerbating or remitting factors. No belly pain. ADDITIONAL HISTORY OBTAINED: Per HPI Chronic Medical/Social Conditions Affecting Care: Per HPI PAST MEDICAL HISTORY:See Below PAST SURGICAL HISTORY:See Below FAMILY HISTORY:See Below SOCIAL HISTORY:See Below HOME MEDICATIONS:See Below ALLERGIES:See Below VITALS:See Below PHYSICAL EXAMINATION: GENERAL: Sitting up in bed, alert, well appearing, well nourished, no distress, non-toxic EYE EXAM: normal conjunctiva. OROPHARYNX: no exudate, no erythema, lips, buccal mucosa, and tongue normal and mucous membranes are moist NECK: supple, no nuchal rigidity, no adenopathy, non-tender LUNGS: Clear to auscultation. Normal chest wall mechanics HEART: no murmurs, S1 normal and S2 normal ABDOMEN: abdomen soft, non-tender, normo-active bowel sounds, no masses, no rebound or guarding. BACK: Back is symmetrical on inspection and there is no deformity, no midline tenderness, no CVA tenderness. SKIN: no rashes and no bruising UPPER EXTREMITIES: upper extremities are grossly normal. LOWER EXTREMITIES: Flexion-extension bilateral hips knees and ankles intact. Acute pain in the left groin. Unable to appreciate PT on the left. DP 2 out of 4. Left leg is slightly red and purple discoloration throughout. Skin is intact NEURO EXAM: Normal sensorium, cranial nerves II-XII grossly intact, normal speech, no gross weakness of arms, no gross weakness of legs. MEDICAL DECISION MAKING: Patient is a 73-year-old female who presents ER for left lower extremity pain. IV was established blood work was obtained. Labs show leukocytosis of 17,000. No significant anemia. INR unremarkable. BMP along LFTs bilirubin was unremarkable. Troponin was elevated at 21. Pro-Torres and lipase was unremarkable. UA was negative. On exam she does have a slightly larger left leg comparison to the right. She did have DP and PT intact. Duplex was obtained and showed extensive clot burden throughout her left lower extremity. With her clot burden initially presented her blood pressure was low CT angio was obtained as well as troponin which was elevated. CT angio of the chest showed no PEs. Discussed bleeding risk at bedside with the patient and family. She did have a previous brain bleed secondary to an aneurysm. I discussed this in combination with vascular and the hospitalist. They recommended heparin drip and bolus and admission. Dr. Bernardo was on-call. Patient was admitted to the hospital for further workup. Consults/Care Managements Discussions: Per MDM Triage Nursing notes reviewed. Limited review of prior medical records performed Vital Signs: reviewed and remarkable for no significant abnormalities Differential diagnosis: DVT, musculoskeletal, infection, joint effusion, trauma, lymphedema, idiopathic, CHF, as well as other pathologies. ER treatment provided: See below Diagnostics interpreted by me include EKG and cardiac monitoring as listed below: -Cardiac Monitoring: An order was placed for continuous cardiac monitoring. The monitor shows a rate of 70 with sinus rhythm. -ECG: Sinus rhythm rate 73 Normal axis No PVCs QTc [address] changes in the lateral -Laboratory studies:Interpreted by me as stated above in MDM and shown below. Imaging studies: Xrays: As interpreted by me:none CTs show: CT of the chest per my preliminary read showed no obvious proximal PEs Venous duplex of the lower extremity showed extensive DVT CT angio of the chest was negative per radiology Procedures:none Critical Care: I have personally spent 32 minutes of critical care time in the direct management of this patient. This includes bedside care, interpretation of diagnostic studies, and testing, discussion with consultants, patient, and family members, and other required patient management activities. This 32 minutes is in excess of all separately billable procedures. Past Med/Surg History Medical History (Updated 04/23/24 @ 17:25 by Cristofer Goldsmith DO) COVID JACOB (dyspnea on exertion) Serum calcium elevated Wound of right upper extremity Vitamin D deficiency Vitamin B12 deficiency Hypoxia Adrenal insufficiency Multiple pulmonary nodules determined by computed tomography of lung Joint pain Migraine Chronic dyspnea Abnormal CT scan, chest Headache Rib fracture Facial dermatitis Rash Vocal cord nodule "LUMP ON VOCAL CORD" - REPORTED REASON FOR UPCOMING SURGERY BY PT History of ischemic colitis Thyroid cyst SOBOE (shortness of breath on exertion) Ovarian cyst, bilateral Ovarian cyst Lung nodule NOT MENTIONED BY PT DURING PAT CALL Lesion of vocal fold Hoarseness of voice PT DENIES TROUBLE SWALLOWING Essential hypertension Cough CHRONIC Chronic sinusitis Celiac artery stenosis Osteopenia Dissection of other artery Chronic reflux esophagitis Acquired deviated nasal septum ICD (implantable cardioverter-defibrillator) in place LEFT CHEST, LAST CHECK 1-2 MON AGO generator replaced 10/2018 Nonischemic cardiomyopathy Cardio/EP 07/20/18: "Clinically she is doing , normal left ventricular size and function." GERD (gastroesophageal reflux disease) Hemochromatosis Cerebral aneurysm 2006 Thyroid nodule Depression Hypertension 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 Had ICD inserted in 06/2009, but EF has recovered to ~50% per patient and as of 2017. COPD (chronic obstructive pulmonary disease) 60 pack-year smoker; quit ~1999; nebulizers daily Surgical History History of biopsy THYROID History of cerebral aneurysm repair "coil" 2006 Status post excision of vocal cord nodule had ulceration on vocal cords- biopsy done- benign History of anesthesia reaction with Versed during brochoscopy--confusion and decrease in BP Nausea and vomiting after administration of anesthetic agent History of bilateral tubal ligation History of dilatation and curettage History of carpal tunnel release of both wrists History of esophagogastroduodenoscopy (EGD) History of colonoscopy 2 polyps removed History of appendectomy History of tooth extraction wisdom teeth History of tonsillectomy S/P thyroid biopsy benign History of endoscopic sinus surgery History of bilateral cataract extraction History of cardiac cath x1--2009 @ [facility] [facility] [place] History of bronchoscopy x6 S/P coil embolization of cerebral aneurysm 03/[address] [facility] [place] S/P ICD (internal cardiac defibrillator) procedure 2007 Family History Brother Cardiomyopathy Sister Cardiomyopathy Bipolar disorder Grandfather (Maternal) Family hx of colon cancer Mother Kidney disease Bipolar disorder Father Prostate cancer Aunt Myocardial infarction Aunt Breast cancer Unknown Allergies FHx: deafness or hearing loss Cardiac disorder Sinusitis Other No family history of bleeding disorder Social History Smoking Status: Former smoker Tobacco Type: Cigarettes Age Started Using Tobacco: 14; Age Quit Using Tobacco: 48; packs per day: 2; Second Hand Exposure: No; Do You Dip or Chew Tobacco: No; Hx Alcohol Use: Yes Alcohol type: beer Hx Substance Use: No Preferred Language: Moldovan Communication Ability: Effective Razor Grinder Required: No Beliefs That Will Affect Care: None marital status: Current Living Situation: Spouse current occupational status: retired Feels Safe at Home: Yes Childhood Exposure to Second-Hand Smoke: Yes Dental Care, Regularly: Yes Physical Activity Frequency: Daily Seatbelt Use: always Sunscreen Use: Yes Assistive Devices: Glasses and Nebulizer Allergies Allergies Allergy/AdvReac Type Severity Reaction Status Date / Time Gadolinium-Containing Allergy Severe WENT INTO Verified 11/04/23 15:04 Contrast Medi SHOCK moxifloxacin [From Avelox] Allergy "didn't Verified 11/04/23 15:04 feel well" midazolam AdvReac Intermediate CONFUSION Verified 11/04/23 15:04 AND DECREASED BP Home Meds Home Medications Medication Instructions Recorded Confirmed [id number] acid 0.4 0 tab PO HS 04/28/18 11/04/23 mg-lycopene 300 mcg-lutein 250 mcg tablet (Centrum Silver) vitamin B complex 0 cap PO QAM 07/21/18 11/04/23 ascorbic acid (vitamin C) 500 mg 0 mg PO HS 09/05/21 11/04/23 capsule nicotine (polacrilex) 4 mg gum 0 mg buccal Q2H 09/05/21 11/04/23 (Nicorette) calcium carbonate (Calcium 500) 0 mg PO QAM 11/15/21 11/04/23 Saccharomyces boulardii 250 mg 0 mg PO DAILY 12/03/22 11/04/23 capsule (Daily Probiotic (S. boulardii)) chlorpheniramine maleate 4 mg 4 mg PO DAILY Runny Nose 04/10/23 11/04/23 tablet (ChlorTabs) azithromycin 250 mg tablet 250 mg PO 3XWK 11/04/23 11/04/23 carvedilol 3.125 mg tablet (Coreg) See Rx Instructions .Route .COMPLEX 11/04/23 11/04/23 carvedilol 6.25 mg tablet See Rx Instructions .Route .COMPLEX 11/04/23 11/04/23 fluticasone propionate 50 0 spray intranasal BID 11/04/23 11/04/23 mcg/actuation nasal spray,suspension (Flonase Allergy Relief) methylprednisolone sod suc(PF) 40 60 mg IM DAILY PRN Stress 11/04/23 11/04/23 mg/mL solution for injection (Solu-Medrol (PF)) prednisone 1 mg tablet See Rx Instructions .Route .COMPLEX 11/04/23 11/04/23 prednisone 2.5 mg tablet See Rx Instructions .Route .COMPLEX 11/04/23 11/04/23 prednisone 5 mg tablet See Rx Instructions .Route .COMPLEX 11/04/23 11/04/23 Previous Rx's Medication Instructions Recorded sodium chloride 7 % for 1 inh inhalation UD #60 vials 05/14/22 nebulization Oxygen Home E0424 #1 L 01/13/23 bupropion HCl 150 mg 24 hr tablet, 150 mg PO QAM #90 tabs 05/23/23 extended release carvedilol 12.5 mg tablet 12.5 mg PO HS #90 tabs 06/09/23 lisinopril 20 mg tablet 20 mg PO BID #180 tabs 06/10/23 simvastatin 20 mg tablet 20 mg PO HS #90 tabs 06/10/23 venlafaxine 150 mg 150 mg PO QAM #90 caps 06/10/23 capsule,extended release 24 hr romosozumab-aqqg 210 mg/2.34 210 mg (2.34 mL) subcut MONTHLY 07/04/23 mL(105 mg/1.17 mL x2)subcutaneous #2.34 mL syringe (Evenity) methylprednisolone sod suc(PF) 40 40 mg IM .COMPLEX #2 ea 07/11/23 mg/mL solution for injection (Solu-Medrol (PF)) arformoterol 15 mcg/2 mL solution 15 mcg (2 mL) inhalation BID #360 10/10/23 for nebulization mL ipratropium bromide 0.02 % 0.5 mg (2.5 mL) inhalation BID 10/31/23 solution for inhalation #450 mL mometasone 220 mcg/actuation(120 2 inh inhalation BID #3 Inhalers 10/31/23 doses)breath activated powder inhaler (Asmanex Twisthaler) Results & Data (ED) Vital Signs Vital Signs - 24 hr 11/04/23 10:20 11/04/23 10:54 11/04/23 10:58 Temperature 36.4 C L Temperature Source Temporal Artery Scan Pulse Rate 94 H Pulse Rate [Apical] 74 Respiratory Rate 22 18 Respiratory Effort / Characteristics Non-Labored Spontaneous Respiratory Depth Normal Respiratory Pattern Regular Blood Pressure 95/58 L Blood Pressure [Right Arm] 124/59 L Blood Pressure Mean 70 Blood Pressure Mean [Right Arm] 80 Blood Pressure Position [Right Arm] Lying Pulse Oximetry 93 98 Oxygen Delivery Method Room Air Room Air Room Air Sepsis New/Unexplained Change in Mental Status No Sepsis Action Taken by Nursing No Action Required 11/04/23 11:07 11/04/23 12:01 11/04/23 14:00 Temperature Temperature Source Pulse Rate 75 76 Pulse Rate [Apical] 85 Respiratory Rate 22 24 Respiratory Effort / Characteristics Non-Labored Spontaneous Respiratory Depth Normal Respiratory Pattern Regular Blood Pressure 147/83 H Blood Pressure [Right Arm] 137/81 Blood Pressure Mean 104 Blood Pressure Mean [Right Arm] 99 Blood Pressure Position [Right Arm] Pulse Oximetry 98 96 Oxygen Delivery Method Room Air Room Air Sepsis New/Unexplained Change in Mental Status Sepsis Action Taken by Nursing Laboratory Data 11/04/23 11:05 11/04/23 11:05 Lab Results 11/04/23 11/04/23 Range/Units 11:05 12:49 WBC 17.58 H (4.8-10.8) K/ul RBC 3.98 L (4.20-5.40) M/uL Hgb 13.9 (12.0-16.0) g/dl Hct 42.7 (37.0-47.0) % MCV 107.3 H (80.0-100.0) fL MCH 34.9 H (25.0-34.0) pg MCHC 32.6 (32.0-36.0) g/dL RDW Std Deviation 52.3 H (36.4-46.3) fL RDW Coeff of Isabela 13.2 (11.5-14.5) % Plt Count 148 (130-400) K/uL MPV 10.0 (9.4-12.4) fL Immature Gran % (Auto) 2.4 % Neut % (Auto) 81.6 % Lymph % (Auto) 7.2 % [place] % (Auto) 8.0 % Eos % (Auto) 0.5 % Baso % (Auto) 0.3 % Neut # (Auto) 14.35 H (1.40-6.50) K/uL Lymph # (Auto) 1.26 (1.20-3.40) K/uL [place] # (Auto) 1.41 H (0.11-0.59) K/uL Eos # (Auto) 0.08 (0.00-0.50) K/uL Baso # (Auto) 0.06 (0.00-0.20) K/uL Immature Gran # (Auto) 0.42 H (0.01-0.20) K/uL PT 11.2 (9.0-12.0) Seconds INR 1.0 (0.9-1.1) APTT 24 (21-31) Seconds PTT Ratio 0.9 Sodium 140 (136-145) mmol/L Potassium 3.6 (3.5-5.1) mmol/L Chloride 106 (98-107) mmol/L Carbon Dioxide 26 (21-32) mmol/L Anion Gap 8 (3-11) BUN 11 (6-23) mg/dl Creatinine 0.61 (0.6-1.2) mg/dl Est Cr Clr Drug Dosing Not Reportable Est GFR ( Amer) 102.8 ml/min Est GFR (Non-Af Amer) 88.7 ml/min BUN/Creatinine Ratio 18.0 (10-20) Glucose 118 H (70-99(Fasting)) mg/dl Calcium 9.3 (8.6-10.3) mg/dl Total Bilirubin 0.7 (0.2-1.0) mg/dl AST 19 (13-39) U/L ALT 18 (7-52) U/L Alkaline Phosphatase 57 (34-104) U/L Troponin I High Sens 21.9 H (0-14) pg/ml Total Protein 6.5 (6.0-8.3) gm/dl Albumin 4.1 (3.4-5.0) gm/dl Globulin 2.4 L (2.5-4.0) gm/dl Albumin/Globulin Ratio 1.7 (0.9-2) Lipase 22 (11-82) U/L Procalcitonin 0.06 (0-0.5) ng/ml Urine Color Yellow Urine Appearance Clear (Clear) Urine pH 7.0 (4.5-7.5) Ur Specific Baldwin > 1.045 H (1.000-1.030) Urine Protein Negative (Negative) Urine Glucose (UA) Negative (Negative) Urine Ketones Negative (Negative) Urine Blood Negative (Negative) Urine Nitrite Negative (Negative) Urine Bilirubin Negative (Negative) Urine Urobilinogen Negative (Negative) Ur Leukocyte Esterase Negative (Negative) Administered Medications Heparin Sodium/Dextrose (Heparin Sodium/Dextrose) 25,000 units in 500 mls @ 19 mls/hr IV .Q24H [facility]; Protocol Stop: 12/04/23 13:29 Last Titration: 11/04/23 17:06 Dose: 950 units/hr, 19 mls/hr Documented By: BRAD Co-signed By: [facility] Admin: 11/04/23 13:58 Dose: 950 units/hr, 19 mls/hr Documented By: LISA Co-signed By: CHIQUI Discontinued Medications Heparin Sodium (Porcine) (Heparin Sod (Porcine) 1000 Unit/Ml) 4,000 units IV NOW ONE Stop: 11/04/23 14:01 Last Admin: 11/04/23 13:58 Dose: 4,000 units Documented By: LISA Co-signed By: CHIQUI Heparin Sodium/Dextrose (Heparin Iv Adult Wt-Based Standard W/ Initial Bolus Protocol) 1 each IV NOW [facility]; Protocol Stop: 11/04/23 13:10 Last Admin: 11/04/23 13:50 Dose: 1 each Documented By: CHIQUI Sodium Chloride (Nss) 1,000 mls @ 999 mls/hr IV .Q1H1M ONE Stop: 11/04/23 12:33 Last Infusion: 11/04/23 13:04 Dose: Infused Documented By: Admin: 11/04/23 12:02 Dose: 999 mls/hr Documented By: LISA Ioversol (Optiray 320 125ml) 120 ml IV ONCE ONE Stop: 11/04/23 12:07 Last Admin: 11/04/23 12:07 Dose: 120 ml Documented By: JUANCHO Ioversol (Optiray 320 125ml) 115 ml IV ONCE ONE Stop: 11/04/23 15:18 Last Admin: 11/04/23 15:18 Dose: 115 ml Documented By: CHADWICK Miscellaneous (Patient's Weight Needed) 1 each N/A NOW STA Stop: 11/04/23 13:15 Last Admin: 11/04/23 13:58 Dose: 1 each Documented By: LISA Imaging Data Radiologist's Impression: Venous Doppler Study 11/04/23 10:58 LEFT LOWER EXTREMITY VENOUS DOPPLER HISTORY: lle pain and swelling COMPARISON STUDY: None. FINDINGS: Extensive occlusive thrombus seen throughout the visualized left lower extremity deep venous system from the left common femoral vein through the calf veins.. IMPRESSION: Extensive DVT within the left lower extremity. ACT 112: Negative or not required by law. Electronically signed by: Tenzin Willson M.D. 11/04/2023 12:55 PM Chest CTA 11/04/23 11:32 CT angio chest PE protocol CT DOSE: 367.26 mGy.cm HISTORY: 73 years-old Female with PE. Acute shortness of breath with DVT TECHNIQUE: Multiple CTA images of the chest were obtained after the intravenous administration of 120 ml Optiray. Coronal and sagittal MIPS were obtained from the axial data set and were submitted for review. All measurements were obtained according to NASCET criteria. A dose lowering technique was utilized adhering to the principles of ALARA. COMPARISON: 10/20/2023 FINDINGS: CTA: The heart is mildly enlarged. Left subclavian pacer/AICD redemonstrated. No pericardial effusion. Moderate coronary artery calcifications. Atherosclerosis of the thoracic aorta without aneurysm or dissection. No pulmonary emboli identified. Suboptimal violation of the subsegmental branches secondary to respiratory motion. CT CHEST: 2 nodular thyroid with nodules measuring up to 1.1 cm and the left lobe. Emphysema. Biapical pleural parenchymal scarring redemonstrated. There is noted 6 cm solid nodules in the left upper lobe has decreased in size now measuring 4 mm. No new or enlarging pulmonary nodules identified. There are a few additional low suspicion solid pulmonary nodules measuring 3-4 mm. Left Bochdalek hernia. No pneumothorax, pleural effusion, or overt pulmonary edema or airspace consolidation typical for pneumonia. Left renal cysts measure up to 4 cm. Mild nonspecific distal esophageal wall thickening with subcentimeter periesophageal lymph nodes. Unremarkable soft tissues. No acute fracture. IMPRESSION: 1. No pulmonary emboli identified. 2. Emphysema with biapical pleural parenchymal scarring redemonstrated. 3. Low suspicion solid pulmonary nodules measure up to 4 mm. One-year follow-up chest CT recommended. 4. No lymphadenopathy. Please refer to below summary of Fleischner criteria recommendations for follow- up of incidental CT nodules (Dara Lagos, Guidelines for management of small pulmonary nodules detected on CT scans: A statement from the Fleischner Society, Radiology 237: [phone].) SOLID NODULES Multiple nodules size: <6 mm * Low risk patients: no routine follow-up * high risk patients: optional CT at 12 months Note: newly detected indeterminate nodule in persons 35 years of age or older. * Low risk patients: minimal or absent history of smoking and/or other known risk factors * high risk patients: history of smoking or of other known risk factors (e.g. first degree relative with lung cancer, or exposure to asbestos, radon, uranium) * if a nodule up to 8 mm is partly solid or is ground glass further follow-up is required after 24 months to exclude possible slow growing adenocarcinoma (RADHA) ACT 112: Negative or not required by law. The above report was generated using voice recognition software. It may contain grammatical, syntax or spelling errors. Electronically signed by: Darron Esteban M.D. 11/04/2023 1:18 PM Discharge Plan Visit Data Chief Complaint: Leg Injury/Pain Stated Complaint: SEVERE L HIP PAIN ED Provider: Cristofer Goldsmith Discharge Problem: DVT (deep venous thrombosis), Acute leg pain, Leukocytosis, Elevated troponin Patient Disposition: Admitted As Inpatient Discharge Instructions Interventions: ED Discharge Assessment Last Done: 11/04/23 16:35 Discharge Problem: DVT (deep venous thrombosis) Qualifiers: DVT location: lower extremity Affected thrombotic vein of extremity: u nspecified vein of extremity Chronicity: acute Laterality: left Qualified Code(s): I82.402 - Acute embolism and thrombosis of unspecified deep veins of left lower extremity Acute leg pain Qualifiers: Laterality: left Qualified Code(s): M79.605 - Pain in left leg Leukocytosis Qualifiers: Leukocytosis type: unspecified Qualified Code(s): D72.829 - Elevated white blood cell count, unspecified
[2023-11-04 11:12] LABS: Basophils # (auto) 0.06 K/uL (0.00-0.20); Basophils % (auto) 0.3 %; Eosinophils # (auto) 0.08 K/uL (0.00-0.50); Eosinophils % (auto) 0.5 %; Hematocrit (blood only) 42.7 % (37.0-47.0); Hemoglobin 13.9 g/dl (12.0-16.0); Immature Granulocytes # (auto) 0.42 K/uL (0.01-0.20); Immature Granulocytes % (auto) 2.4 %; Lymphocytes # (auto) 1.26 K/uL (1.20-3.40); Lymphocytes % (auto) 7.2 %; Mean Corpuscular Hemoglobin 34.9 pg (25.0-34.0); Mean Corpuscular Hgb Conc 32.6 g/dL (32.0-36.0); Mean Corpuscular Volume 107.3 fL (80.0-100.0); Monocytes # (auto) 1.41 K/uL (0.11-0.59); Neutrophils # (auto) 14.35 K/uL (1.40-6.50); Neutrophils % (auto) 81.6 %; Platelet Count 148 K/uL (130-400); RDW Coefficient of Variation 13.2 % (11.5-14.5); RDW Standard Deviation 52.3 fL (36.4-46.3); Red Blood Count 3.98 M/uL (4.20-5.40); White Blood Count 17.58 K/ul (4.8-10.8)
[2023-11-04 11:23] LABS: Prothrombin Time 11.2 Seconds (9.0-12.0)
[2023-11-04 11:33] LABS: Albumin Level 4.1 gm/dl (3.4-5.0); Anion Gap 8 (3-11); Bilirubin,Total 0.7 mg/dl (0.2-1.0); Calcium 9.3 mg/dl (8.6-10.3); Carbon Dioxide 26 mmol/L (21-32); Chloride 106 mmol/L (98-107); Potassium 3.6 mmol/L (3.5-5.1); Sodium 140 mmol/L (136-145)
[2023-11-04 11:39] LABS: Alanine Aminotransferase 18 U/L (7-52); Albumin Globulin Ratio 1.7 (0.9-2); Alkaline Phosphatase 57 U/L (34-104); Aspartate Aminotransferase 19 U/L (13-39); Blood Urea Nitrogen 11 mg/dl (6-23); Est GFR (African American) 102.8 ml/min; Est GFR (Non-African American) 88.7 ml/min; Globulin 2.4 gm/dl (2.5-4.0); Glucose 118 mg/dl (70-99(Fasting)); Lipase 22 U/L (11-82); Total Protein 6.5 gm/dl (6.0-8.3)
[2023-11-04] MEDS: SODIUM CHLORIDE 0.9% 1,000 ML IV ONE (12:02)
[2023-11-04] MEDS: OPTIRAY 320 125ml IV ONE ×2 (12:07→15:18)
--- NOTE | 2023-11-04 12:58 | Ultrasound Report ---
LEFT LOWER EXTREMITY VENOUS DOPPLER HISTORY: lle pain and swelling COMPARISON STUDY: None. FINDINGS: Extensive occlusive thrombus seen throughout the visualized left lower extremity deep venou s system from the left common femoral vein through the calf veins.. IMPRESSION: Extensive DVT within the left lower extremity. ACT 112: Negative or not required by law. Electronically signed by: Tenzin Willson M.D. 11/04/2023 12:55 PM
[2023-11-04 13:03] LABS: Appearance Urine Clear (Clear); Bilirubin Urine Negative (Negative); Blood Urine Negative (Negative); Color Urine Yellow; Glucose Urine UA Negative (Negative); Ketones Urine Negative (Negative); Leukocyte Esterase Urine Negative (Negative); Nitrite Urine Negative (Negative); Protein Urine Negative (Negative); Specific Gravity Urine > 1.045 (1.000-1.030); Urobilinogen Urine Negative (Negative)
--- NOTE | 2023-11-04 13:19 | CT Scan Report ---
CT angio chest PE protocol CT DOSE: 367.26 mGy.cm HISTORY: 73 years-old Female with PE. Acute shortness of breath with DVT TECHNIQUE: Multiple CTA images of the chest were obtained after the intravenous administration of 120 ml Optiray. Coronal and sagittal MIPS were obtained from the axial data set and were submitted for review. All measurements were obtained according to NASCET criteria. A dose lowering technique was u tilized adhering to the principles of ALARA. COMPARISON: 10/20/2023 FINDINGS: CTA: The heart is mildly enlarged. Left subclavian pacer/AICD redemonstrated. No pericardial effusion. Mod erate coronary artery calcifications. Atherosclerosis of the thoracic aorta without aneurysm or disse ction. No pulmonary emboli identified. Suboptimal violation of the subsegmental branches secondary to respiratory motion. CT CHEST: 2 nodular thyroid with nodules measuring up to 1.1 cm and the left lobe. Emphysema. Biapical pleural parenchymal scarring redemonstrated. There is noted 6 cm solid nodules in the left upper lobe has dec reased in size now measuring 4 mm. No new or enlarging pulmonary nodules identified. There are a few additional low suspicion solid pulmonary nodules measuring 3-4 mm. Left Bochdalek hernia. No pneumoth orax, pleural effusion, or overt pulmonary edema or airspace consolidation typical for pneumonia. Left renal cysts measure up to 4 cm. Mild nonspecific distal esophageal wall thickening with subcenti meter periesophageal lymph nodes. Unremarkable soft tissues. No acute fracture. IMPRESSION: 1. No pulmonary emboli identified. 2. Emphysema with biapical pleural parenchymal scarring redemonstrated. 3. Low suspicion solid pulmonary nodules measure up to 4 mm. One-year follow-up chest CT recommended. 4. No lymphadenopathy. Please refer to below summary of Fleischner criteria recommendations for follow-up of incidental CT n odules (Dara [place]os, Guidelines for management of small pulmonary nodules detected on CT scans: A sta tement from the Fleischner Society, Radiology 237: [phone].) SOLID NODULES Multiple nodules size: <6 mm * Low risk patients: no routine follow-up * high risk patients: optional CT at 12 months Note: newly detected indeterminate nodule in persons 35 years of age or older. * Low risk patients: minimal or absent history of smoking and/or other known risk factors * high risk patients: history of smoking or of other known risk factors (e.g. first degree relative with lung cancer, or exposure to asbestos, radon, uranium) * if a nodule up to 8 mm is partly solid or is ground glass further follow-up is required after 24 m onths to exclude possible slow growing adenocarcinoma (RADHA) ACT 112: Negative or not required by law. The above report was generated using voice recognition software. It may contain grammatical, syntax o r spelling errors. Electronically signed by: Darron Esteban M.D. 11/04/2023 1:18 PM
--- NOTE | 2023-11-04 13:22 | Electrocardiogram Report ---
Test Reason : Blood Pressure : / mmHG Vent. Rate : 073 BPM Atrial Rate : 073 BPM P-R Int : 134 ms QRS Dur : 088 ms QT Int : 402 ms P-R-T Axes : 049 030 065 degrees QTc Int : 442 ms Normal sinus rhythm Normal ECG When compared with ECG of 30-MAY-2023 10:33, (unconfirmed) Criteria for Septal infarct are no longer Present Confirmed by Gm Maya ([id number]) on 11/04/2023 1:21:36 PM Referred By: Confirmed By:Gm Maya
[2023-11-04] MEDS ORDERED: HEPARIN SOD (PORCINE) 1000 UNIT/ML IV ONE (13:25)
[2023-11-04] MEDS: Heparin IV Adult Wt-Based Standard w/ INITIAL Bolus Protocol IV STA (13:50)
[2023-11-04] MEDS: HEPARIN SODIUM/DEXTROSE 25,000 UNITS/500 ML BAG IV SCH (13:58)
[2023-11-04] MEDS: Patient's WEIGHT Needed STA (13:58)
[2023-11-04] MEDS: HEPARIN SOD (PORCINE) 1000 UNIT/ML IV ONE (13:58)
[2023-11-04 14:10] LABS: Partial Thromboplastin Ratio 0.9; Partial Thromboplastin Time 24 Seconds (21-31)
--- NOTE | 2023-11-04 14:31 | History & Physical Report ---
Date of Service November 04, 2023 Assessment & Plan (1) Acute DVT (deep venous thrombosis): Plan: Given extensive nature and mild phlegmasia cerulea dolens will observe overnight on intravenous heparin prior to starting oral anticoagulation Normal peripheral pulses and cap refill, however consult vascular due to phlegmasia cerulea dolens Given sudden onset and extensive nature we will get CT abdomen pelvis venogram to rule out external compression Possibly exacerbated by lying around more due to increased fatigue thought to be from long COVID (2) Adrenal insufficiency: Plan: Continue usual prednisone dosing, no current hypotension or systemic illness to warrant increased dosing at this time (3) Essential hypertension: Plan: Continue carvedilol and lisinopril (4) Depression: Plan: Continue venlafaxine and bupropion (5) Hemochromatosis: Plan: Patient reports well controlled with phlebotomy once approximately every 6 months Plan VTE Prophylaxis - IV heparin Diet - regular Disposition - observation to med/surg Admission and Anticipated Discharge Date Admission Date: November 04, 2023 History of Present Illness Chief Complaint: Lef leg pain and swelling Primary Care Provider: Nurys Blanchard MD Sol Wen is a 73 year old female who presents to the ER with left leg swelling and pain from her calf to her groin. She bent over yesterday and it started with a severe pain in her groin progressing down her entire leg. Current leg pain is mild. Her leg has now started to turn more purple. No chest pain or shortness of breath. No prior DVT or PE. No history of miscarriages. She does note ongoing fatigue previously put down to long COVID. Allergies Allergy/AdvReac Type Severity Reaction Status Date / Time Gadolinium-Containing Allergy Severe WENT INTO Verified 11/04/23 15:04 Contrast Medi SHOCK moxifloxacin [From Avelox] Allergy "didn't Verified 11/04/23 15:04 feel well" midazolam AdvReac Intermediate CONFUSION Verified 11/04/23 15:04 AND DECREASED BP Home Medications Medication Instructions Recorded Confirmed Type rpmxgjlt-uts-gkdgr acid 0.4 1 tab PO HS 04/28/18 11/04/23 History mg-lycopene 300 mcg-lutein 250 mcg tablet (Centrum Silver) vitamin B complex 1 cap PO QAM 07/21/18 11/04/23 History ascorbic acid (vitamin C) 500 mg 500 mg PO HS 09/05/21 11/04/23 History capsule nicotine (polacrilex) 4 mg gum 4 mg buccal Q2H 09/05/21 11/04/23 History (Nicorette) calcium carbonate (Calcium 500) 0 mg PO QAM 11/15/21 11/04/23 History sodium chloride 7 % for 1 inh inhalation UD #60 vials 05/14/22 11/04/23 Rx nebulization Saccharomyces boulardii 250 mg 250 mg PO DAILY 12/03/22 11/04/23 History capsule (Daily Probiotic (S. boulardii)) Oxygen Home E0424 #1 L 01/13/23 11/04/23 Rx chlorpheniramine maleate 4 mg 4 mg PO DAILY Runny Nose 04/10/23 11/04/23 History tablet (ChlorTabs) bupropion HCl 150 mg 24 hr tablet, 150 mg PO QAM #90 tabs 05/23/23 11/04/23 Rx extended release carvedilol 12.5 mg tablet 12.5 mg PO HS #90 tabs 06/09/23 11/04/23 Rx lisinopril 20 mg tablet 20 mg PO BID #180 tabs 06/10/23 11/04/23 Rx simvastatin 20 mg tablet 20 mg PO HS #90 tabs 06/10/23 11/04/23 Rx venlafaxine 150 mg 150 mg PO QAM #90 caps 06/10/23 11/04/23 Rx capsule,extended release 24 hr romosozumab-aqqg 210 mg/2.34 210 mg (2.34 mL) subcut MONTHLY 07/04/23 11/04/23 Rx mL(105 mg/1.17 mL x2)subcutaneous #2.34 mL syringe (Evenity) methylprednisolone sod suc(PF) 40 40 mg IM .COMPLEX #2 ea 07/11/23 11/04/23 Rx mg/mL solution for injection (Solu-Medrol (PF)) arformoterol 15 mcg/2 mL solution 15 mcg (2 mL) inhalation BID #360 10/10/23 11/04/23 Rx for nebulization mL ipratropium bromide 0.02 % 0.5 mg (2.5 mL) inhalation BID 10/31/23 11/04/23 Rx solution for inhalation #450 mL mometasone 220 mcg/actuation(120 2 inh inhalation BID #3 Inhalers 10/31/23 11/04/23 Rx doses)breath activated powder inhaler (Asmanex Twisthaler) azithromycin 250 mg tablet 250 mg PO 3XWK 11/04/23 11/04/23 History carvedilol 3.125 mg tablet (Coreg) See Rx Instructions .Route .COMPLEX 11/04/23 11/04/23 History carvedilol 6.25 mg tablet See Rx Instructions .Route .COMPLEX 11/04/23 11/04/23 History fluticasone propionate 50 1 spray intranasal BID 11/04/23 11/04/23 History mcg/actuation nasal spray,suspension (Flonase Allergy Relief) methylprednisolone sod suc(PF) 40 60 mg IM DAILY PRN Stress 11/04/23 11/04/23 History mg/mL solution for injection (Solu-Medrol (PF)) prednisone 1 mg tablet See Rx Instructions .Route .COMPLEX 11/04/23 11/04/23 History prednisone 2.5 mg tablet See Rx Instructions .Route .COMPLEX 11/04/23 11/04/23 History prednisone 5 mg tablet See Rx Instructions .Route .COMPLEX 11/04/23 11/04/23 History Past Med/Surg History Medical History (Updated 11/04/23 @ 17:25 by Cristofer Goldsmith DO) COVID JACOB (dyspnea on exertion) Serum calcium elevated Wound of right upper extremity Vitamin D deficiency Vitamin B12 deficiency Hypoxia Adrenal insufficiency Multiple pulmonary nodules determined by computed tomography of lung Joint pain Migraine Chronic dyspnea Abnormal CT scan, chest Headache Rib fracture Facial dermatitis Rash Vocal cord nodule "LUMP ON VOCAL CORD" - REPORTED REASON FOR UPCOMING SURGERY BY PT History of ischemic colitis Thyroid cyst SOBOE (shortness of breath on exertion) Ovarian cyst, bilateral Ovarian cyst Lung nodule NOT MENTIONED BY PT DURING PAT CALL Lesion of vocal fold Hoarseness of voice PT DENIES TROUBLE SWALLOWING Essential hypertension Cough CHRONIC Chronic sinusitis Celiac artery stenosis Osteopenia Dissection of other artery Chronic reflux esophagitis Acquired deviated nasal septum ICD (implantable cardioverter-defibrillator) in place LEFT CHEST, LAST CHECK 1-2 MON AGO generator replaced 10/2018 Nonischemic cardiomyopathy Cardio/EP 07/20/18: "Clinically she is doing , normal left ventricular size and function." GERD (gastroesophageal reflux disease) Hemochromatosis Cerebral aneurysm 2006 Thyroid nodule Depression Hypertension 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 Had ICD inserted in 06/2009, but EF has recovered to ~50% per patient and as of 2017. COPD (chronic obstructive pulmonary disease) 60 pack-year smoker; quit ~1999; nebulizers daily Surgical History History of biopsy THYROID History of cerebral aneurysm repair "coil" 2006 Status post excision of vocal cord nodule had ulceration on vocal cords- biopsy done- benign History of anesthesia reaction with Versed during brochoscopy--confusion and decrease in BP Nausea and vomiting after administration of anesthetic agent History of bilateral tubal ligation History of dilatation and curettage History of carpal tunnel release of both wrists History of esophagogastroduodenoscopy (EGD) History of colonoscopy 2 polyps removed History of appendectomy History of tooth extraction wisdom teeth History of tonsillectomy S/P thyroid biopsy benign History of endoscopic sinus surgery History of bilateral cataract extraction History of cardiac cath x1--2009 @ [facility] [facility] [place] History of bronchoscopy x6 S/P coil embolization of cerebral aneurysm 03/2007 @ [facility] [place] S/P ICD (internal cardiac defibrillator) procedure 2007 Family History Brother Cardiomyopathy Sister Cardiomyopathy Bipolar disorder Grandfather (Maternal) Family hx of colon cancer Mother Kidney disease Bipolar disorder Father Prostate cancer Aunt Myocardial infarction Aunt Breast cancer Unknown Allergies FHx: deafness or hearing loss Cardiac disorder Sinusitis Other No family history of bleeding disorder Social History Smoking Status: Former smoker Tobacco Type: Cigarettes Age Started Using Tobacco: 14; Age Quit Using Tobacco: 48; packs per day: 2; Second Hand Exposure: No; Do You Dip or Chew Tobacco: No; Hx Alcohol Use: Yes Alcohol type: beer Hx Substance Use: No Preferred Language: Eritrean Communication Ability: Effective Airplane Inspector Required: No Beliefs That Will Affect Care: None marital status: Current Living Situation: Spouse current occupational status: retired Feels Safe at Home: Yes Safety Concerns: Feels Safe At This Time Childhood Exposure to Second-Hand Smoke: Yes Dental Care, Regularly: Yes Physical Activity Frequency: Daily Seatbelt Use: always Sunscreen Use: Yes Assistive Devices: Glasses, Nebulizer and Oxygen - at Night Review of Systems Review of Systems: All systems reviewed & are unremarkable except as noted in HPI & below Physical Exam Constitutional: WD/WN, vitals as above Eyes: + anicteric sclerae; normal pupil size ENMT: external ear and nose normal, oropharynx normal Respiratory: normal respiratory effort, lungs clear to auscultation Cardiovascular: RRR, no murmur, no edema Gastrointestinal (Abdomen): Inspection/Auscultation: abdomen normal to inspection; abdomen not distended Percussion/Palpation: + abdomen tender (mild right sided tenderness) and abdomen soft; no guarding and abdomen not rigid Skin: Left leg swelling and calf pain with mild phlegmasia cerulea dolens, normal DP/PT pulses peripherally with not capillary refill despite dusky appearing toes Neurologic: moves all extremities and awake; not confused Psychiatric: A+Ox3, euthymic affect Results & Data Results & Data Vital Signs (Past 12 Hours) Vital Signs Temp Pulse Pulse Resp BP BP Pulse Ox 11/04/23 12:01 76 22 147/83 H 98 11/04/23 11:07 75 11/04/23 10:58 11/04/23 10:54 74 18 124/59 L 98 11/04/23 10:20 36.4 C L 94 H 22 95/58 L 93 O2 Del Method 11/04/23 12:01 Room Air 11/04/23 11:07 11/04/23 10:58 Room Air 11/04/23 10:54 Room Air 11/04/23 10:20 Room Air Laboratory Results Abnormal lab results 11/04/23 11/04/23 Range/Units 11:05 12:49 WBC 17.58 H (4.8-10.8) K/ul RBC 3.98 L (4.20-5.40) M/uL MCV 107.3 H (80.0-100.0) fL MCH 34.9 H (25.0-34.0) pg RDW Std Deviation 52.3 H (36.4-46.3) fL Neut # (Auto) 14.35 H (1.40-6.50) K/uL [place] # (Auto) 1.41 H (0.11-0.59) K/uL Immature Gran # (Auto) 0.42 H (0.01-0.20) K/uL Glucose 118 H (70-99(Fasting)) mg/dl Troponin I High Sens 21.9 H (0-14) pg/ml Globulin 2.4 L (2.5-4.0) gm/dl Ur Specific [place] > 1.045 H (1.000-1.030) Diagnostic Findings CT angio chest PE protocol CT DOSE: 367.26 mGy.cm HISTORY: 73 years-old Female with PE. Acute shortness of breath with DVT TECHNIQUE: Multiple CTA images of the chest were obtained after the intravenous administration of 120 ml Optiray. Coronal and sagittal MIPS were obtained from the axial data set and were submitted for review. All measurements were obtained according to NASCET criteria. A dose lowering technique was utilized adhering to the principles of ALARA. COMPARISON: 10/20/2023 FINDINGS: CTA: The heart is mildly enlarged. Left subclavian pacer/AICD redemonstrated. No pericardial effusion. Moderate coronary artery calcifications. Atherosclerosis of the thoracic aorta without aneurysm or dissection. No pulmonary emboli identified. Suboptimal violation of the subsegmental branches secondary to respiratory motion. CT CHEST: 2 nodular thyroid with nodules measuring up to 1.1 cm and the left lobe. Emphysema. Biapical pleural parenchymal scarring redemonstrated. There is noted 6 cm solid nodules in the left upper lobe has decreased in size now measuring 4 mm. No new or enlarging pulmonary nodules identified. There are a few additional low suspicion solid pulmonary nodules measuring 3-4 mm. Left Bochdalek hernia. No pneumothorax, pleural effusion, or overt pulmonary edema or airspace consolidation typical for pneumonia. Left renal cysts measure up to 4 cm. Mild nonspecific distal esophageal wall thickening with subcentimeter periesophageal lymph nodes. Unremarkable soft tissues. No acute fracture. IMPRESSION: 1. No pulmonary emboli identified. 2. Emphysema with biapical pleural parenchymal scarring redemonstrated. 3. Low suspicion solid pulmonary nodules measure up to 4 mm. One-year follow-up chest CT recommended. 4. No lymphadenopathy. LEFT LOWER EXTREMITY VENOUS DOPPLER HISTORY: lle pain and swelling COMPARISON STUDY: None. FINDINGS: Extensive occlusive thrombus seen throughout the visualized left lower extremity deep venous system from the left common femoral vein through the calf veins.. IMPRESSION: Extensive DVT within the left lower extremity. Medications Administered ER medications given: Heparin IV bolus and drip ECG Rate (beats per minute): 73 Rhythm: normal sinus Findings: no acute ischemic change Comparison ECG Date: from (May 30, 2023) Change: no significant change Code Status & VTE Plan Code Status Full VTE Prophylaxis Plan VTE Prophylaxis will be ordered: Yes PG Care Time/CCT Total # of Minutes Spent Total Time Spent with Patient: Total time spent is greater than 50% in coordination of care (as documented) at patient's floor/unit and/or counseling patient: Coding Level of Care Code 09438 INT INP/OBS CARE 2/55MIN Diagnoses Acute DVT (deep venous thrombosis) I82.409 Adrenal insufficiency E27.40 Essential hypertension I10 Depression F32.9 Hemochromatosis E83.119
--- NOTE | 2023-11-04 15:55 | CT Scan Report ---
CT VENOGRAPHY OF THE ABDOMEN AND PELVIS CLINICAL HISTORY: Unexplained fatigue, sudden onset extensive DVT. COMPARISON STUDY: CT of the abdomen and pelvis March 24, 2021. TECHNIQUE: Axial images of the abdomen and pelvis were obtained during venous phase following intrave nous injection 115 cc of Optiray 320 IV. Sagittal and coronal reconstructions were viewed. Automated exposure control was utilized for the study. A dose lowering technique was utilized adhering to the principles of ALARA. FINDINGS: No pneumatosis, free air or portal venous gas is present. The liver, spleen, adrenal glands and pancreas are unremarkable. There is no pancreatic mass. There is no biliary or pancreatic ductal dilatation. Water attenuation left renal lesions reflect cysts. A 1 cm hypodense left mid pole renal lesion on image 102 of 333 contains numerous thin septations. This is similar to CT of March 24, 2021 and probably benign. There is no hydronephrosis. Excreted contrast from recent chest CT is note d. Is no evidence for a bowel obstruction. The caliber and wall thickness of small and large bowel ar e normal. There is no lymphadenopathy. A 2.7 cm fundal fibroid is present. There is mild asymmetric e nlargement of the left ovary, similar to prior CT. Apparent filling defects within the bilateral gona minda veins, right greater left, are noted. In addition, there is deep venous thrombus within the left common iliac, internal iliac, external iliac, common femoral, superficial femoral and deep femoral ve ins. These vessels are dilated. There is asymmetric edema within the left thigh as well as the adjace nt soft tissues. There is compression of the left common iliac vein by the right common iliac artery against the vertebral body. L1 compression fracture is noted. Vertebral body height loss has increas ed since radiographs of June 13, 2021 IMPRESSION: 1. Extensive acute deep venous thrombus within the left common iliac, internal iliac, external iliac, common femoral, superficial and deep femoral veins. Associated left thigh and soft tissue edema. Com pression of the left common iliac vein by the right common iliac artery against the vertebral body. T his raises the possibility of May Thurner syndrome. 2. Apparent filling defects within the bilateral gonadal veins. This could reflect mixing artifact or gonadal vein thrombus. 3. No evidence for malignancy within the abdomen or pelvis. ACT 112: Negative or not required by law. Electronically signed by: Calderon Howe M.D. 11/04/2023 3:54 PM
[2023-11-04] MEDS ORDERED: predniSONE 5 MG TAB PO SCH (17:45)
[2023-11-04] MEDS ORDERED: carvediloL 6.25 MG TAB PO SCH (17:45)
[2023-11-04] MEDS ORDERED: NICOTINE POLACRILEX 2 MG GUM MT PRN (18:08)
[2023-11-04] MEDS: FORMOTEROL 20 MCG/2 ML VIAL INH SCH (19:15)
[2023-11-04] MEDS: SODIUM CHLOR 7% 4 ML NEB INH SCH (19:15)
[2023-11-04] MEDS: IPRATROPIUM BROMIDE NEB SOLN 0.02% 0.5MG/2.5ML VIAL INH SCH (19:17)
[2023-11-04] MEDS: lisinopril 20 MG TAB PO SCH (20:51)
[2023-11-04] MEDS: carvediloL 12.5 MG TAB PO SCH (20:51)
[2023-11-04] MEDS: SIMVASTATIN 20 MG TAB PO SCH (20:51)
[2023-11-04] MEDS: FLUTICASONE FUROATE 200MCG 14 PUFFS/INHALER INH SCH (20:52)
[2023-11-04] MEDS: FLUTICASONE PROPIONATE NA SPR 16 GM BTL NAE SCH (20:54)
[2023-11-04] MEDS: CEROVITE ADV FORMULA TAB PO SCH (21:01)
[2023-11-04 21:17] LABS: Troponin I High Sensitivity 5.1 pg/ml (0-14)
[2023-11-04 21:21] LABS: ANTI-Xa, UFH(UnfractionatedHep 0.93 IU/ml (0.3-0.7)
[2023-11-04] MEDS: ACETAMINOPHEN 500 MG TAB PO PRN (23:48)
[2023-11-04] MEDS: LACTATED RINGER'S 1,000 ML IV SCH (23:50)
[2023-11-05 06:15] LABS: Basophils # (auto) 0.06 K/uL (0.00-0.20); Basophils % (auto) 0.6 %; Eosinophils # (auto) 0.08 K/uL (0.00-0.50); Eosinophils % (auto) 0.8 %; Hematocrit (blood only) 38.7 % (37.0-47.0); Hemoglobin 12.6 g/dl (12.0-16.0); Lymphocytes # (auto) 1.68 K/uL (1.20-3.40); Lymphocytes % (auto) 16.6 %; Mean Corpuscular Hemoglobin 34.7 pg (25.0-34.0); Mean Corpuscular Hgb Conc 32.6 g/dL (32.0-36.0); Mean Corpuscular Volume 106.6 fL (80.0-100.0); Monocytes # (auto) 1.17 K/uL (0.11-0.59); Monocytes % (auto) 11.5 %; Neutrophils # (auto) 6.86 K/uL (1.40-6.50); Neutrophils % (auto) 67.5 %; Platelet Count 151 K/uL (130-400); RDW Coefficient of Variation 13.2 % (11.5-14.5); RDW Standard Deviation 52.5 fL (36.4-46.3); Red Blood Count 3.63 M/uL (4.20-5.40); White Blood Count 10.15 K/ul (4.8-10.8)
[2023-11-05 06:35] LABS: BUN Creatinine Ratio 10.6 (10-20); Calcium 8.6 mg/dl (8.6-10.3); Creatinine Clr Calc Pharmacy 60.9 ml/min; Est GFR (African American) 100.2 ml/min; Est GFR (Non-African American) 86.4 ml/min; Potassium 3.3 mmol/L (3.5-5.1)
[2023-11-05 06:38] LABS: ANTI-Xa, UFH(UnfractionatedHep 0.53 IU/ml (0.3-0.7)
[2023-11-05] MEDS: AZITHROMYCIN 250 MG TAB PO SCH (08:01)
[2023-11-05] MEDS: VENLAFAXINE HCL XR 150 MG CAPXR PO SCH (08:02)
[2023-11-05] MEDS: VITAMIN B COMPLEX TAB PO SCH (08:02)
[2023-11-05] MEDS: predniSONE 1 MG TAB PO SCH (08:02)
[2023-11-05] MEDS: predniSONE 2.5 MG TAB PO SCH (08:03)
[2023-11-05] MEDS: buPROPion XL 150 MG TABCR PO SCH (08:03)
[2023-11-05] MEDS: carvediloL 3.125 MG TAB PO SCH (08:03)
[2023-11-05] MEDS: oxyCODONE HCL IR 5 MG TAB (IMMEDIATE RELEASE) PO PRN (09:39)
[2023-11-05] MEDS: POTASSIUM CHLORIDE CRTAB 20 MEQ TABCR PO STA (11:03)
--- NOTE | 2023-11-05 12:18 | Consultation ---
Date of Consultation November 05, 2023 Assessment & Plan (1) DVT (deep venous thrombosis): Pt does have extensive LLE DVT and is currently on heparin drip. CTV imaging did demonstrate some mild L iliac vein compression, however, this does not require vascular surgical intervention. Thrombolysis/thrombectomy with iliac v stent will not provide significant benefit to this pt. Her pain is currently controlled and edema will improve as she develops recanalization or collateral venous circulation. Recommend anticoagulation and conservative therapy. Consult placed for orthotics to measure for thigh high graduated compression stockings. This was explained at length to pt and her , they are in agreement. Please call if needed. Affected thrombotic vein of extremity: unspecified vein of extremity Chronicity: acute DVT location: lower extremity Laterality: left Qualified Code(s): I82.402 - Acute embolism and thrombosis of unspecified deep veins of left lower extremity History of Present Illness Reason for Consultation: LLE DVT Attending Physician: Taurus Enriquez MD History of Present Illness 73 yo f with hx of brain aneurysm s/p coiling, COPD, chronic adrenal insufficiency on chronic prednisone, GERD, cardiomyopathy, ICD placement, hemochromatosis, migraines, pulmonary nodules, HTN, hyperlipidemia, vocal cord lesion, multinodular goiter, osteopenia, admitted with extensive LLE DVT, seen in consultation today. Pt states she has been dealing with a low back strain for some time, and when she bent over to pick something up, she had sudden onset of severe LLE pain. She then noted edema of her leg and came to [facility]. No recent travel, surgery, trauma. She did have COVID in May 2023, and has had some intermediate sx. States she has not been very active since her COVID infection. Pt admits edema and heaviness of LLE. No previous hx of DVT in past. Denies BROWN, fever, chest pain, SOB, abd pain, N/V, rest pain, claudication, nonhealing ulcers, other complaints. Venous US imaging demonstrates extensive LLE DVT from common fem vein to calf. CTV imaging demonstrates DVT from common iliac V to calf. Allergies Allergy/AdvReac Type Severity Reaction Status Date / Time Gadolinium-Containing Allergy Severe WENT INTO Verified 11/04/23 15:04 Contrast Medi SHOCK moxifloxacin [From Avelox] Allergy "didn't Verified 11/04/23 15:04 feel well" midazolam AdvReac Intermediate CONFUSION Verified 11/04/23 15:04 AND DECREASED BP Home Medications Medication Instructions Recorded Confirmed Type jtjojdjq-pun-[id number] acid 0.4 1 tab PO HS 04/28/18 11/04/23 History mg-lycopene 300 mcg-lutein 250 mcg tablet (Centrum Silver) vitamin B complex 1 cap PO QAM 07/21/18 11/04/23 History ascorbic acid (vitamin C) 500 mg 500 mg PO HS 09/05/21 11/04/23 History capsule nicotine (polacrilex) 4 mg gum 4 mg buccal Q2H 09/05/21 11/04/23 History (Nicorette) calcium carbonate (Calcium 500) 0 mg PO QAM 11/15/21 11/04/23 History sodium chloride 7 % for 1 inh inhalation UD #60 vials 05/14/22 11/04/23 Rx nebulization Saccharomyces boulardii 250 mg 250 mg PO DAILY 12/03/22 11/04/23 History capsule (Daily Probiotic (S. boulardii)) Oxygen Home E0424 #1 L 01/13/23 11/04/23 Rx chlorpheniramine maleate 4 mg 4 mg PO DAILY Runny Nose 04/10/23 11/04/23 History tablet (ChlorTabs) bupropion HCl 150 mg 24 hr tablet, 150 mg PO QAM #90 tabs 05/23/23 11/04/23 Rx extended release carvedilol 12.5 mg tablet 12.5 mg PO HS #90 tabs 06/09/23 11/04/23 Rx lisinopril 20 mg tablet 20 mg PO BID #180 tabs 06/10/23 11/04/23 Rx simvastatin 20 mg tablet 20 mg PO HS #90 tabs 06/10/23 11/04/23 Rx venlafaxine 150 mg 150 mg PO QAM #90 caps 06/10/23 11/04/23 Rx capsule,extended release 24 hr romosozumab-aqqg 210 mg/2.34 210 mg (2.34 mL) subcut MONTHLY 07/04/23 11/04/23 Rx mL(105 mg/1.17 mL x2)subcutaneous #2.34 mL syringe (Evenity) methylprednisolone sod suc(PF) 40 40 mg IM .COMPLEX #2 ea 07/11/23 11/04/23 Rx mg/mL solution for injection (Solu-Medrol (PF)) arformoterol 15 mcg/2 mL solution 15 mcg (2 mL) inhalation BID #360 10/10/23 11/04/23 Rx for nebulization mL ipratropium bromide 0.02 % 0.5 mg (2.5 mL) inhalation BID 10/31/23 11/04/23 Rx solution for inhalation #450 mL mometasone 220 mcg/actuation(120 2 inh inhalation BID #3 Inhalers 10/31/23 11/04/23 Rx doses)breath activated powder inhaler (Asmanex Twisthaler) azithromycin 250 mg tablet 250 mg PO 3XWK 11/04/23 11/04/23 History carvedilol 3.125 mg tablet (Coreg) See Rx Instructions .Route .COMPLEX 11/04/23 11/04/23 History carvedilol 6.25 mg tablet See Rx Instructions .Route .COMPLEX 11/04/23 11/04/23 History fluticasone propionate 50 1 spray intranasal BID 11/04/23 11/04/23 History mcg/actuation nasal spray,suspension (Flonase Allergy Relief) methylprednisolone sod suc(PF) 40 60 mg IM DAILY PRN Stress 11/04/23 11/04/23 History mg/mL solution for injection (Solu-Medrol (PF)) prednisone 1 mg tablet See Rx Instructions .Route .COMPLEX 11/04/23 11/04/23 History prednisone 2.5 mg tablet See Rx Instructions .Route .COMPLEX 11/04/23 11/04/23 History prednisone 5 mg tablet See Rx Instructions .Route .COMPLEX 11/04/23 11/04/23 History Patient History Medical History COVID JACOB (dyspnea on exertion) Serum calcium elevated Wound of right upper extremity Vitamin D deficiency Vitamin B12 deficiency Hypoxia Adrenal insufficiency Multiple pulmonary nodules determined by computed tomography of lung Joint pain Migraine Chronic dyspnea Abnormal CT scan, chest Headache Rib fracture Facial dermatitis Rash Vocal cord nodule "LUMP ON VOCAL CORD" - REPORTED REASON FOR UPCOMING SURGERY BY PT History of ischemic colitis Thyroid cyst SOBOE (shortness of breath on exertion) Ovarian cyst, bilateral Ovarian cyst Lung nodule NOT MENTIONED BY PT DURING PAT CALL Lesion of vocal fold Hoarseness of voice PT DENIES TROUBLE SWALLOWING Essential hypertension Cough CHRONIC Chronic sinusitis Celiac artery stenosis Osteopenia Dissection of other artery Chronic reflux esophagitis Acquired deviated nasal septum ICD (implantable cardioverter-defibrillator) in place LEFT CHEST, LAST CHECK 1-2 MON AGO generator replaced 10/2018 Nonischemic cardiomyopathy Cardio/EP 07/20/18: "Clinically she is doing , normal left ventricular size and function." GERD (gastroesophageal reflux disease) Hemochromatosis Cerebral aneurysm 2006 Thyroid nodule Depression Hypertension 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 Had ICD inserted in 06/2009, but EF has recovered to ~50% per patient and as of 2017. COPD (chronic obstructive pulmonary disease) 60 pack-year smoker; quit ~1999; nebulizers daily Surgical History History of biopsy THYROID History of cerebral aneurysm repair "coil" 2006 Status post excision of vocal cord nodule had ulceration on vocal cords- biopsy done- benign History of anesthesia reaction with Versed during brochoscopy--confusion and decrease in BP Nausea and vomiting after administration of anesthetic agent History of bilateral tubal ligation History of dilatation and curettage History of carpal tunnel release of both wrists History of esophagogastroduodenoscopy (EGD) History of colonoscopy 2 polyps removed History of appendectomy History of tooth extraction wisdom teeth History of tonsillectomy S/P thyroid biopsy benign History of endoscopic sinus surgery History of bilateral cataract extraction History of cardiac cath x1--2009 @ [facility]/2011 @ [facility] [place]--no stents History of bronchoscopy x6 S/P coil embolization of cerebral aneurysm 03/2007 @ [facility] [place] S/P ICD (internal cardiac defibrillator) procedure 2007 Family History Brother Cardiomyopathy Sister Cardiomyopathy Bipolar disorder Grandfather (Maternal) Family hx of colon cancer Mother Kidney disease Bipolar disorder Father Prostate cancer Aunt Myocardial infarction Aunt Breast cancer Unknown Allergies FHx: deafness or hearing loss Cardiac disorder Sinusitis Other No family history of bleeding disorder Social History Smoking Status: Former smoker Tobacco Type: Cigarettes Age Started Using Tobacco: 14; Age Quit Using Tobacco: 48; packs per day: 2; Second Hand Exposure: No; Do You Dip or Chew Tobacco: No; Hx Alcohol Use: Yes Alcohol type: beer Hx Substance Use: No Preferred Language: Malay Communication Ability: Effective Revit Drafter Required: No Beliefs That Will Affect Care: None marital status: Current Living Situation: Spouse current occupational status: retired Feels Safe at Home: Yes Childhood Exposure to Second-Hand Smoke: Yes Dental Care, Regularly: Yes Physical Activity Frequency: Daily Seatbelt Use: always Sunscreen Use: Yes Assistive Devices: Cane and Walker Review of Systems Review of Systems: All systems reviewed & are unremarkable except as noted in HPI & below Physical Exam Constitutional: WD/WN, vitals as above + frail appearing, cooperative and comfortable; not in distress ENMT: Ears: no hearing impairment Neck: trachea midline Respiratory: normal respiratory effort, lungs clear to auscultation Auscu ltation: + diminished lung sounds Cardiovascular: Rate/Rhythm: regular rate and regular rhythm Vessels: nor mal peripheral pulses, femoral pulses present, posterior tibial pulses present, dorsalis pedis pulses present and radial pulses present Extremities: normal capillary refill and + edema (LLE +4 edema) Gastrointestinal (Abdomen): Inspection/Auscultation: abdomen normal to inspection and normal bowel sounds Percussion/Palpation: abdomen soft; abdomen nontender Musculoskeletal: no cyanosis or clubbing, extremities motor strength 5/5 Skin: no rashes, warm and dry Neurologic: moves all extremities and awake; no focal motor deficits and not confused Psychiatric: A+Ox3, euthymic affect Results & Data Vital Signs (Past 12 Hours) Vital Signs Temp Pulse Resp BP Pulse Ox O2 Del Method 11/05/23 07:44 36.5 C 81 18 131/74 97 Room Air 11/05/23 07:40 78 18 91 Room Air
[2023-11-05] MEDS: ONDANSETRON INJ 2 MG/ML 2 ML VIAL IV PRN (16:52)
--- NOTE | 2023-11-05 18:56 | Hospitalist Progress Note ---
Date of Service November 05, 2023 Assessment & Plan (1) Acute DVT (deep venous thrombosis): Plan: - Patient presented after sudden onset of severe left lower extremity pain after bending over to pick something up. She then noted edema of her leg and presented to the hospital. - Extensive acute DVT within the left common iliac, internal iliac, external iliac, common femoral, superficial and deep femoral veins. Associated left thigh and soft tissue edema. Compression of the left common iliac vein by the right common iliac artery against the vertebral body. Raises the possibility of May Thurner syndrome. - Vascular surgery consulted: This does not require vascular surgical intervention at this time. Thrombolysis/thrombectomy with iliac the stent will not provide significant benefit to the patient. -- Edema will improve as she develops recanalization or collateral venous circulation. -- Recommend high-grade graduated compression stockings, anticoagulation, and conservative therapy - Continue heparin drip. Transition to oral anticoagulation agent and continue conservative therapy. (2) Adrenal insufficiency: Plan: Continue usual prednisone dosing, no current hypotension or systemic illness to warrant increased dosing at this time (3) Essential hypertension: Plan: Continue carvedilol and lisinopril (4) Depression: Plan: Continue venlafaxine and bupropion (5) Hemochromatosis: Plan: Patient reports well controlled with phlebotomy once approximately every 6 months Plan VTE Prophylaxis - IV heparin CODE STATUS: Full code Admission and Anticipated Discharge Date Admission Date: November 04, 2023 Subjective Patient seen and evaluated at bedside with . She reports that the oxycodone relieved her left leg pain. Patient was seen by vascular surgery, who does not feel that the patient requires vascular surgical intervention at this time. Patient reports no history of DVTs or clots and no inciting events. Denies recent travel, surgery, trauma. Physical Exam Physical Exam: General: No acute distress, nondiaphoretic, frail-appearing. Skin: Left extremity edema with some discoloration. Normal capillary refill in left lower extremity. All pulses present. Otherwise, the skin was without rashes, erythema, edema, or bruising. Cardiac: Regular rate and rhythm without murmurs gallops or rubs. Pulm: Clear to auscultation bilaterally without wheezes, rales or rhonchi. No retractions or accessory muscle use. Abdominal: Positive bowel sounds x 4. Soft, nontender, without masses or org anomegaly. No guarding or rebound tenderness. Neuro: A&O x3. No focal neurological deficits. Results & Data Results & Data Vital Signs (Past 12 Hours) Vital Signs Temp Pulse Resp BP Pulse Ox O2 Del Method 11/05/23 12:32 Room Air 11/05/23 07:44 36.5 C 81 18 131/74 97 Room Air 11/05/23 07:40 78 18 91 Room Air Laboratory Results Reviewed CBC Reviewed chemistries PG Care Time/CCT Total # of Minutes Spent Total Time Spent with Patient: Total time spent is greater than 50% in coordination of care (as documented) at patient's floor/unit and/or counseling patient: Coding Level of Care Code 06430 SUB INP/OBS CARE 2/35MIN Diagnoses Acute DVT (deep venous thrombosis) I82.409 Adrenal insufficiency E27.40 Essential hypertension I10 Depression F32.9 Hemochromatosis E83.119
[2023-11-06 07:47] LABS: Hematocrit (blood only) 38.4 % (37.0-47.0); Hemoglobin 12.6 g/dl (12.0-16.0); Mean Corpuscular Hemoglobin 34.6 pg (25.0-34.0); Mean Corpuscular Hgb Conc 32.8 g/dL (32.0-36.0); Mean Corpuscular Volume 105.5 fL (80.0-100.0); Platelet Count 167 K/uL (130-400); RDW Coefficient of Variation 12.9 % (11.5-14.5); RDW Standard Deviation 50.2 fL (36.4-46.3); Red Blood Count 3.64 M/uL (4.20-5.40)
[2023-11-06 08:04] LABS: Calcium 8.8 mg/dl (8.6-10.3); Creatinine Clr Calc Pharmacy 80.4 ml/min; Est GFR (African American) 109.7 ml/min; Est GFR (Non-African American) 94.7 ml/min; Potassium 3.7 mmol/L (3.5-5.1)
[2023-11-06] MEDS: APIXABAN 5 MG TABLET PO ONE (13:18)
--- NOTE | 2023-11-06 18:25 | Discharge Summary ---
Date of Service November 06, 2023 Admission HPI Per Admitting Provider Sol Wen is a 73 year old female who presents to the ER with left leg swelling and pain from her calf to her groin. She bent over yesterday and it started with a severe pain in her groin progressing down her entire leg. Current leg pain is mild. Her leg has now started to turn more purple. No chest pain or shortness of breath. No prior DVT or PE. No history of miscarriages. She does note ongoing fatigue previously put down to long COVID. Admission Exam Per Admitting Provider Constitutional: WD/WN, vitals as above Eyes: + anicteric sclerae; normal pupil size ENMT: external ear and nose normal, oropharynx normal Respiratory: normal respiratory effort, lungs clear to auscultation Cardiovascular: RRR, no murmur, no edema Gastrointestinal (Abdomen): Inspection/Auscultation: abdomen normal to inspection; abdomen not distended Percussion/Palpation: + abdomen tender (mild right sided tenderness) and abdomen soft; no guarding and abdomen not rigid Skin: Left leg swelling and calf pain with mild phlegmasia cerulea dolens, normal DP/PT pulses peripherally with not capillary refill despite dusky appearing toes Neurologic: moves all extremities and awake; not confused Psychiatric: A+Ox3, euthymic affect Principal Diagnosis Acute extensive DVT Discharge Exam General: No acute distress, nondiaphoretic, frail-appearing. Skin: Left extremity edema with some discoloration. Normal capillary refill in left lower extremity. All pulses present. Otherwise, the skin was without rashes, erythema, edema, or bruising. Cardiac: Regular rate and rhythm without murmurs gallops or rubs. Pulm: Clear to auscultation bilaterally without wheezes, rales or rhonchi. No retractions or accessory muscle use. Abdominal: Positive bowel sounds x 4. Soft, nontender, without masses or organomegaly. No guarding or rebound tenderness. Neuro: A&O x3. No focal neurological deficits. Discharge Data Allergies Allergy/AdvReac Type Severity Reaction Status Date / Time Gadolinium-Containing Allergy Severe WENT INTO Verified 11/04/23 15:04 Contrast Medi SHOCK moxifloxacin [From Avelox] Allergy "didn't Verified 11/04/23 15:04 feel well" midazolam AdvReac Intermediate CONFUSION Verified 11/04/23 15:04 AND DECREASED BP Consultations 11/04/23 13:39 ED Decision to Admit Stat 11/04/23 17:09 Consult Vascular Surgery Routine Ordered Studies 11/04/23 10:58 US venous doppler LE LT Stat 11/04/23 11:32 CT angio chest PE protocol Stat 11/04/23 14:15 CT abdomen pelvis veno w con Stat Hospital Course (1) Acute DVT (deep venous thrombosis): - Patient presented after sudden onset of severe left lower extremity pain after bending over to pick something up. She then noted edema of her leg and presented to the hospital. - Extensive acute DVT within the left common iliac, internal iliac, external iliac, common femoral, superficial and deep femoral veins. Associated left thig h and soft tissue edema. Compression of the left common iliac vein by the right common iliac artery against the vertebral body. Raises the possibility of May Thurner syndrome, although Vascular does not think this is likely. - Vascular surgery consulted: This did not require vascular surgical intervention at this time. Thrombolysis/thrombectomy with iliac the stent will not provide significant benefit to the patient. -- Edema will improve as she develops recanalization or collateral venous circulation. -- Continue high-grade graduated compression stockings, anticoagulation, and conservative therapy. - Heparin drip was transition to oral anticoagulation. Upon discharge, continue with Eliquis 10 mg twice daily x 7 days, then 5 mg twice daily for at least 3 months. (2) Adrenal insufficiency: Continue usual prednisone dosing, no hypotension or systemic illness to warrant increased dosing during admission. (3) Essential hypertension: Continue carvedilol and lisinopril (4) Depression: Continue venlafaxine and bupropion (5) Hemochromatosis: Patient reports well controlled with phlebotomy once approximately every 6 months Plan CODE STATUS: Full code Total Time Total Time Spent Total Time Spent (In Minutes): Greater than 30 minutes spent completing this discharge process including direct patient care, medication reconciliation, documentation, review of labs and images, and coordination of care. Discharge Plan Discharge Items Patient Disposition: Home - Self-Care Reason For Visit: EXTENSIVE DVT Discharge Diagnosis: Acute DVT (deep vein thrombosis) Activity: Resume your previous activity Non-emergency contact: Primary Care Provider Call non-emergency contact if: you have any medication questions and your symptoms worsen Follow-up/Referrals: Nurys Blanchard V., MD [Primary Care Provider] - 11/13/23 10:15 am (Appointment will be with April Mcmanus PA-C) Diet: Heart Healthy Addtl Attending Provider Instructions: Mrs. Wen, Blu were admitted to the hospital due to extensive acute deep vein thromboses (DVT). A DVT is a condition where a blood clot forms in a deep vein. You had DVTs extending from your common femoral vein down through your calf. This is what caused your symptoms of pain, swelling, and discoloration of your left leg. You were treated with IV anticoagulation while you are in the hospital. Additionally, you were seen by vascular surgery who did not feel that a vascular surgical intervention was required at this time. The swelling (edema) of your left leg will improve with time. When you leave the hospital, you will be on an oral anticoagulation pill. Upon discharge from the hospital: * Take Eliquis for anticoagulation. This medicine reduces the risk of further clots developing and reduces the ability of your blood to form clots. -- Take 10 mg twice daily for 7 days, then 5 mg twice daily for at least 3 months. At that point in time, your PCP will decide whether you need to stay on the 5 mg twice daily dose or if you can be decreased to 2.5 mg twice daily. However, it is most likely that you will be on this medicine lifelong. -- This prescription was sent to the [facility] pharmacy on [address]. You were provided with a Eliquis coupon that should give you the first month for free. After that, your PCP will prescribe this medicine and you can use your preferred mail order pharmacy at that time. * Continue wearing the compression stocking. Wear this during the day and when your leg is in a dependent position. However, this does not need to be worn overnight when you are sleeping or when your leg is resting upright. * Follow-up with your PCP next week. Their office will call you with the appointment date and time. Please contact your PCP if you experience any of the following: Blood in the urine, blood with bowel movements, prolonged bleeding from your nose, gums, cut, or vagina. Please return to the hospital if you experience any of the following: Trouble breathing, fast heart beat, chest pain, pain (especially deep in the muscle), swelling, aching or soreness, red or warm skin, fever > 100.4, excessive sweating or coughing, or fainting. It was a pleasure taking care of you while you were in the hospital, Aixa Gatica PA-C Pending Studies at Discharge: No Stand-Alone Forms: [facility], Smoking Cessation Medications and DC Order Prescriptions: New Eliquis 5 mg tablet 5 mg PO BID Qty: 60 0RF Rx Instructions: 10 mg PO twice daily x 7 days, then 5 mg PO twice daily. Continued sodium chloride 7 % solution for nebulization 1 inh INHALATION UD Qty: 60 5RF carvedilol 12.5 mg tablet 12.5 mg PO HS Qty: 90 3RF venlafaxine 150 mg capsule,extended release 24hr 150 mg PO QAM Qty: 90 1RF lisinopril 20 mg tablet 20 mg PO BID Qty: 180 3RF simvastatin 20 mg tablet 20 mg PO HS Qty: 90 3RF Evenity 210mg/2.34mL ( 105mg/1.17mLx2) syringe 210 mg subcut MONTHLY Qty: 2.34 12RF Rx Instructions: As of 11/04/23 this has not been filled by pharmacy Solu-Medrol (PF) 40 mg/mL recon soln 40 mg IM .COMPLEX Qty: 2 0RF Rx Instructions: 40 mg intramuscularly to be used in emergent situations when unable to take oral medications; arformoterol 15 mcg/2 mL solution for nebulization 15 mcg inhalation BID Qty: 360 1RF Rx Instructions: USE 1 VIAL TWICE DAILY VIA NEBULIZER nicotine (polacrilex) [Nicorette] 4 mg gum 4 mg buccal Q2H Rx Instructions: Unable to verify OTC meds with patient/family at this date/time. ascorbic acid (vitamin C) 500 mg capsule 500 mg PO HS Rx Instructions: Unable to verify OTC meds with patient/family at this date/time. chlorpheniramine maleate [ChlorTabs] 4 mg tablet 4 mg PO DAILY Patient Comments: takes 1 every morning Rx Instructions: do not exceed 2 doses per 24 hrs calcium carbonate [Calcium 500] 500 mg calcium (1,250 mg) tablet,chewable 0 mg PO QAM Rx Instructions: Unable to verify OTC meds with patient/family at this date/time. (DME) Oxygen Home E0424 Liters Per Minute See Rx Instructions .ROUTE .MEDSUPPLY Qty: 1 0RF Rx Instructions: Home oxygen concentrator with portability. 2 L via nasal cannula. Length of need 99 years. Saccharomyces boulardii [Daily Probiotic (S. boulardii)] 250 mg capsule 250 mg PO DAILY Rx Instructions: Unable to verify OTC meds with patient/family at this date/time. bupropion HCl 150 mg tablet extended release 24 hr 150 mg PO QAM Qty: 90 3RF Asmanex Twisthaler 220 mcg/ actuation (120) aerosol powdr breath activated 2 inh INH BID Qty: 3 3RF ipratropium bromide 0.02 % solution 0.5 mg inhalation BID Qty: 450 3RF Rx Instructions: USE 1 VIAL TWICE DAILY VIA NEBULIZER Centrum Silver 0.4-300-250 mg-mcg-mcg Tablet 1 tab PO HS Rx Instructions: Unable to verify OTC meds with patient/family at this date/time. vitamin B complex Capsule 1 cap PO QAM Rx Instructions: Unable to verify OTC meds with patient/family at this date/time. azithromycin 250 mg tablet 250 mg PO 3XWK Rx Instructions: Friday/Friday/Friday fluticasone propionate [Flonase Allergy Relief] 50 mcg/actuation spray,suspension 1 spray intranasal BID Rx Instructions: in each nare Solu-Medrol (PF) 40 mg/mL recon soln 60 mg IM DAILY PRN (Reason: Stress) Rx Instructions: 60mg intramuscularly PRN as needed in times of stress; As of 11/04/23 this has not been filled by pharmacy prednisone 1 mg Tablet See Rx Instructions .ROUTE .COMPLEX Rx Instructions: Take 1mg w/ 5mg w/ 2.5mg tablet to equal 8.5mg by mouth every morning prednisone 2.5 mg tablet See Rx Instructions .ROUTE .COMPLEX Rx Instructions: Take 1mg w/ 2.5mg w/ 5mg tablet to equal 8.5mg by mouth every morning carvedilol 6.25 mg tablet See Rx Instructions .ROUTE .COMPLEX Rx Instructions: Take 6.25mg w/ 3.125mg to equal 9.375mg by mouth every morning prednisone 5 mg tablet See Rx Instructions .ROUTE .COMPLEX Rx Instructions: Take 5mg w/ 1mg w/ 2.5mg tablet to equal 8.5mg by mouth every morning carvedilol [Coreg] 3.125 mg tablet See Rx Instructions .ROUTE .COMPLEX Rx Instructions: Take 3.125mg w/ 6.25mg to equal 9.375mg by mouth every morning Discharge Orders: Discharge Order (Routine); Ordered 11/06/23 Ordered By: Aixa Sheppard/Other Patient Handouts: Understanding Deep Vein Thrombosis, DVT Tx Admission Data Admit Date/Time: 11/04/23 14:12 Attending Provider: Carlo Currie Admit Provider: Taurus Cabrera Primary Care Provider: Nurys Blanchard V. Other Providers: Taurus Cabrera; Haja Bernardo Other Interventions: Discharge Summary Assessment (RN) Last Done: 11/06/23 13:33 Coding Level of Care Code 48955 INP/OBS DISCH >30 MIN Diagnoses Acute DVT (deep venous thrombosis) I82.409 Adrenal insufficiency E27.40 Essential hypertension I10 Depression F32.9 Hemochromatosis E83.119
== END 2023-11-06 14:23 | disposition home or self-care (01) ==
LOC: EDINP 10:09 → ED 10:09 → SUATTDRO 14:12 → 3N 16:35

== ENCOUNTER 2025-01-09 08:09 | Observation (INO) ==
[2025-01-09 08:49] LABS: Basophils # (auto) 0.03 K/uL (0.00-0.20); Basophils % (auto) 0.3 %; Eosinophils # (auto) 0.09 K/uL (0.00-0.50); Immature Granulocytes # (auto) 0.12 K/uL (0.01-0.20); Immature Granulocytes % (auto) 1.3 %; Lymphocytes # (auto) 0.45 K/uL (1.20-3.40); Lymphocytes % (auto) 4.9 %; Mean Corpuscular Hgb Conc 34.8 g/dL (32.0-36.0); Mean Corpuscular Volume 103.4 fL (80.0-100.0); Mean Platelet Volume 9.8 fL (9.4-12.4); Monocytes # (auto) 0.78 K/uL (0.11-0.59); Monocytes % (auto) 8.4 %; Neutrophils # (auto) 7.77 K/uL (1.40-6.50); Neutrophils % (auto) 84.1 %; Platelet Count 206 K/uL (130-400); RDW Standard Deviation 49.8 fL (36.4-46.3); Red Blood Count 4.45 M/uL (4.20-5.40); White Blood Count 9.24 K/ul (4.8-10.8)
[2025-01-09] MEDS: SODIUM CHLORIDE 0.9% 1,000 ML IV SCH (08:49)
[2025-01-09] MEDS: ONDANSETRON INJ 2 MG/ML 2 ML VIAL IV STA (08:49)
[2025-01-09 09:09] LABS: Alanine Aminotransferase 18 U/L (7-52); Albumin Globulin Ratio 1.4 (0.9-2); Alkaline Phosphatase 62 U/L (34-104); Anion Gap 8 (3-11); Aspartate Aminotransferase 25 U/L (13-39); BUN Creatinine Ratio 21.3 (10-20); Bilirubin,Total 0.6 mg/dl (0.2-1.0); Blood Urea Nitrogen 13 mg/dl (6-23); Calcium 9.1 mg/dl (8.6-10.3); Carbon Dioxide 26 mmol/L (21-32); Chloride 100 mmol/L (98-107); Glucose 88 mg/dl (70-99(Fasting)); Magnesium 2.2 mg/dl (1.7-2.4); Potassium 3.9 mmol/L (3.5-5.1); Sodium 134 mmol/L (136-145); Total Protein 7.1 gm/dl (6.0-8.3)
--- NOTE | 2025-01-09 09:12 | Emergency Department Note ---
Impression & Plan Weakness, Adrenal insufficiency, Vomiting and diarrhea, Acute dehydration, Pneumonia ED Provider Note NAME: LAURE INIGUEZ AGE: 74 SEX: F : 1950 ARRIVES VIA: Walk-In INFORMANT: [Patient][] ED PROVIDER(S): [Trino Dahl MD] CHIEF COMPLAINT: Illness HISTORY OF PRESENT ILLNESS: The patient is a 74-year-old female who presents with 24 to 48 hours of fatigue and about 24 hours of vomiting and diarrhea. She feels very weak. She has been in bed for almost 24 hours. She only has been getting up to go to the bathroom. The patient denies blood in the vomit or stool. She denies fever or urinary complaints. She does not really have that much pain. The patient feels quite thirsty and is concerned for dehydration. Of note, the patient's states that his has issues with her adrenal gland. He has a paper from his doctor's office suggesting dexamethasone under any type of stress. PMHx/PSHx/Social Hx: See Below PHYSICAL EXAM: GENERAL: Patient is in no acute distress. HEENT: No acute trauma, normocephalic atraumatic, mucous membranes dry, no nasal congestion. NECK: No stridor, no adenopathy, no meningismus, trachea is midline. LUNGS: Clear to auscultation bilaterally, no wheeze, no rhonchi, breath sounds equal. Breath sounds are somewhat diminished bilaterally. HEART: Without murmurs gallops or rubs, regular rate and rhythm. ABDOMEN: Soft, nontender, no peritonitis. EXTREMITIES: No cyanosis, full range of motion of all the joints without pain or difficulty. NEUROLOGIC: Oriented x 3, no acute motor or sensory deficits, no focal weakness. SKIN: No jaundice, no diaphoresis. DIFFERENTIAL DIAGNOSIS: Dehydration, foodborne or viral illness, gastritis, electrolyte imbalance, UTI, among others. EMERGENCY DEPARTMENT PROCEDURES: MEDICAL DECISION MAKING: There is no leukocytosis or concerning anemia. There is a normal platelet count. No bandemia. No electrolyte abnormality or renal failure. No concerning liver enzyme elevation. The patient appeared to be in a euthyroid state. ECG shows a sinus rhythm, no ischemia or dysrhythmia. Cardiac enzyme testing x 1 is not consistent with acute cardiac injury. Lyme disease testing returned negative. Chest x-ray shows a potential left lower lung infiltrate. Babesia and anaplasmosis smear has returned negative. Urinalysis does not show findings of infection. Dehydration was suggested. On exam, the patient clinically appeared dehydrated. Patient received IV saline for hydration, she was initially given 1.5 L. She received IV Zofran, IV Decadron. The Decadron was for adrenal insufficiency. She was given a DuoNeb and IV Tylenol. She received IV ceftriaxone and IV Zithromax. Patient does feel somewhat improved, she still complains of fatigue and weakness though. The patient has COPD. She presents with vomiting and diarrhea. She was found to be dehydrated. She has pneumonia. She has a history of adrenal insufficiency. Given her history and findings on workup, I do believe hospitalization is indicated. I spoke with the patient and , I spoke with case management, the on-call hospitalist was consulted. Prior/Outside records/notes reviewed: None ECG per my interpretation: Indication was weakness. The ECG shows a normal sinus rhythm with a rate of 78. There is no ST elevation, no PVCs. The QTc is 478. Continuous Cardiac Monitoring per my interpretation: An order was placed for continuous cardiac monitoring. The monitor shows a rate of 76 with normal sinus rhythm. Imaging/x-ray results per my interpretation: Chest x-ray shows findings of COPD. There is a potential infiltrate/atelectasis in the left lower lung. Chronic Medical/Social conditions affecting care: Advanced age, history of adrenal insufficiency. Care/Management discussed with: Case management, the on-call hospitalist. Level of care consideration(s): After review of the information above and other included data: --I believe the patient requires escalation of care to admission DISPOSITION: Admission Past Med/Surg History Problem List (Updated 01/09/25 @ 13:02 by Trino Dahl MD) Pneumonia (Acute) Acute dehydration (Acute) Vomiting and diarrhea (Acute) Adrenal insufficiency (Acute) Weakness (Acute) Osteopenia May-Thurner syndrome H/O deep venous thrombosis Left lower extremity November 04, 2023 Osteopenia Vitamin D deficiency Vitamin B12 deficiency Hypoxia Nail deformity Adrenal insufficiency COPD (chronic obstructive pulmonary disease) Fatigue (Acute) Multinodular goiter (Acute) Subserous leiomyoma of uterus (Acute) Nutcracker phenomenon of renal vein (Acute) GERD (gastroesophageal reflux disease) Hoarseness Lesion of vocal cord Hyperlipidemia Tiredness Hemochromatosis Bronchiectasis ICD (implantable cardioverter-defibrillator), single, in situ Polyp of gallbladder Health care maintenance halfway systemic steroid user (Acute) Myalgia Depression Cerebral aneurysm 2006 Nonischemic cardiomyopathy Cardio/EP 07/20/18: "Clinically she is doing , normal left ventricular size and function." Chronic sinusitis (Acute) Essential hypertension (Acute) Abnormal CT scan, chest Chronic dyspnea Migraine Multiple pulmonary nodules determined by computed tomography of lung Medical History Adrenal insufficiency Leg pain, bilateral Hordeolum of left eye Forgetfulness Tremor Acute DVT (deep venous thrombosis) Elevated troponin Leukocytosis Acute leg pain COVID JACOB (dyspnea on exertion) Serum calcium elevated Wound of right upper extremity Joint pain Headache Rib fracture Facial dermatitis Rash Vocal cord nodule "LUMP ON VOCAL CORD" - REPORTED REASON FOR UPCOMING SURGERY BY PT History of ischemic colitis Thyroid cyst SOBOE (shortness of breath on exertion) Ovarian cyst, bilateral Ovarian cyst Lung nodule NOT MENTIONED BY PT DURING PAT CALL Lesion of vocal fold Hoarseness of voice PT DENIES TROUBLE SWALLOWING Cough 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 Had ICD inserted in 06/2009, but EF has recovered to ~50% per patient and as of 2017. COPD (chronic obstructive pulmonary disease) 60 pack-year smoker; quit ~1999; nebulizers daily Surgical History History of biopsy THYROID History of cerebral aneurysm repair "coil" 2006 Status post excision of vocal cord nodule had ulceration on vocal cords- biopsy done- benign History of anesthesia reaction with Versed during brochoscopy--confusion and decrease in BP Nausea and vomiting after administration of anesthetic agent History of bilateral tubal ligation History of dilatation and curettage History of carpal tunnel release of both wrists History of esophagogastroduodenoscopy (EGD) History of colonoscopy 2 polyps removed History of appendectomy History of tooth extraction wisdom teeth History of tonsillectomy S/P thyroid biopsy benign History of endoscopic sinus surgery History of bilateral cataract extraction History of cardiac cath x1--2009 @ [facility]/2011 @ [facility] [place] History of bronchoscopy x6 S/P coil embolization of cerebral aneurysm 03/2007 @ [facility] [place] [facility] [place] S/P ICD (internal cardiac defibrillator) procedure 2007 Family History Brother Cardiomyopathy Sister Cardiomyopathy Bipolar disorder Grandfather (Maternal) Family hx of colon cancer Mother Kidney disease Bipolar disorder Father Prostate cancer Aunt Myocardial infarction Aunt Breast cancer Unknown Allergies FHx: deafness or hearing loss Cardiac disorder Sinusitis Other No family history of bleeding disorder Social History Smoking Status: Former smoker Tobacco Type: Cigarettes Age Started Using Tobacco: 14; Age Quit Using Tobacco: 48; packs per day: 2; Second Hand Exposure: No; Do You Dip or Chew Tobacco: No; Hx Alcohol Use: Yes Alcohol type: beer Hx Substance Use: No Preferred Language: Yoruba Communication Ability: Effective Visual Impairment: No Limitations Hearing Ability: Normal Vegetable Vendor Required: No Beliefs That Will Affect Care: None marital status: Current Living Situation: Spouse current occupational status: retired Feels Safe at Home: Yes Childhood Exposure to Second-Hand Smoke: Yes Dental Care, Regularly: Yes Physical Activity Frequency: Daily Seatbelt Use: always Sunscreen Use: Yes Assistive Devices: Cane and Walker Allergies Allergies Allergy/AdvReac Type Severity Reaction Status Date / Time Gadolinium-Containing Allergy Severe WENT INTO Verified 01/09/25 12:41 Contrast Medi SHOCK moxifloxacin [From Avelox] Allergy "didn't Verified 01/09/25 12:41 feel well" midazolam AdvReac Intermediate CONFUSION Verified 01/09/25 12:41 AND DECREASED BP Home Meds Home Medications Medication Instructions Recorded Confirmed vitamin B complex 1 cap PO QAM 07/21/18 01/09/25 ascorbic acid (vitamin C) 500 mg 500 mg PO HS 09/05/21 01/09/25 capsule nicotine (polacrilex) 4 mg gum 4 mg buccal Q2H 09/05/21 01/09/25 (Nicorette) Saccharomyces boulardii 250 mg 250 mg PO DAILY 12/03/22 01/09/25 capsule (Daily Probiotic (S. boulardii)) chlorpheniramine maleate 4 mg 4 mg PO DAILY Runny Nose 04/10/23 01/09/25 tablet (ChlorTabs) carvedilol 3.125 mg tablet (Coreg) See Rx Instructions .Route .COMPLEX 11/04/23 01/09/25 carvedilol 6.25 mg tablet See Rx Instructions .Route .COMPLEX 11/04/23 01/09/25 calcium carbonate (Calcium 500) 500 mg PO QAM 11/07/23 01/09/25 metronidazole 0.75 % topical cream 1 applic topical BID PRN Flare 04/09/24 01/09/25 carvedilol 12.5 mg tablet 12.5 mg PO HS 05/10/24 01/09/25 dabigatran etexilate 150 mg 150 mg PO BID 09/07/24 01/09/25 capsule (Pradaxa) Previous Rx's Medication Instructions Recorded Oxygen Home #1 L 01/13/23 ipratropium 0.5 mg-albuterol 3 mg 3 ml inhalation Q6H PRN wheezing 02/09/24 (2.5 mg base)/3 mL nebulization #180 mL soln bupropion HCl 300 mg 24 hr tablet, 300 mg PO QAM #90 tabs 05/10/24 extended release dexamethasone sodium phosphate 4 4 mg IM ONCE PRN adrenal crisis #3 06/17/24 mg/mL injection solution vials prednisone 1 mg tablet See Rx Instructions PO .COMPLEX 06/28/24 #90 tabs prednisone 2.5 mg tablet See Rx Instructions .Route 06/28/24 .COMPLEX #90 tabs prednisone 5 mg tablet See Rx Instructions .Route 06/28/24 .COMPLEX #180 tabs syringe with needle 3 mL 23 x 1" #50 ea 07/21/24 (BD Eclipse Luer-Adam) azithromycin 250 mg tablet 250 mg PO 3XWK #36 tabs 07/26/24 venlafaxine 150 mg 150 mg PO QAM #90 caps 07/26/24 capsule,extended release 24 hr arformoterol 15 mcg/2 mL solution 2 ml inhalation BID #360 mL 08/10/24 for nebulization (Brovana) ipratropium bromide 0.02 % 0.5 mg (2.5 mL) inhalation BID 10/12/24 solution for inhalation #450 mL simvastatin 20 mg tablet 20 mg PO HS #90 tabs 10/20/24 mometasone 220 mcg/actuation(120 2 inh inhalation BID #3 Inhalers 11/30/24 doses)breath activated powder inhaler (Asmanex Twisthaler) Results & Data (ED) Vital Signs Vital Signs - 24 hr 01/09/25 08:16 01/09/25 08:34 01/09/25 08:38 Temperature 36.5 C Temperature Source Temporal Artery Scan Pulse Rate 87 79 74 Pulse Rate from SpO2 Sensor Respiratory Rate 18 22 Respiratory Effort / Characteristics Non-Labored Spontaneous Respiratory Depth Normal Blood Pressure 112/57 L 136/78 Blood Pressure Mean 75 97 Blood Pressure Position Sitting Pulse Oximetry 95 97 Oxygen Delivery Method Room Air Room Air Sepsis Recent Fever Within 48 Hours No Sepsis New/Unexplained Change in Mental Status No Sepsis Action Taken by Nursing No Action Required 01/09/25 08:57 01/09/25 09:00 01/09/25 09:30 Temperature Temperature Source Pulse Rate 76 78 Pulse Rate from SpO2 Sensor Respiratory Rate 23 22 24 Respiratory Effort / Characteristics Respiratory Depth Blood Pressure 155/80 H 171/90 H Blood Pressure Mean 114 109 Blood Pressure Position Pulse Oximetry 95 96 100 Oxygen Delivery Method Room Air Room Air Sepsis Recent Fever Within 48 Hours Sepsis New/Unexplained Change in Mental Status Sepsis Action Taken by Nursing 01/09/25 10:06 01/09/25 10:27 01/09/25 11:00 Temperature Temperature Source Pulse Rate 80 83 Pulse Rate from SpO2 Sensor 80 83 Respiratory Rate 21 22 Respiratory Effort / Characteristics Respiratory Depth Blood Pressure 163/79 H 148/85 H 163/84 H Blood Pressure Mean 107 106 106 Blood Pressure Position Pulse Oximetry 93 95 Oxygen Delivery Method Room Air Sepsis Recent Fever Within 48 Hours Sepsis New/Unexplained Change in Mental Status Sepsis Action Taken by Nursing 01/09/25 11:30 01/09/25 11:30 01/09/25 11:33 Temperature Temperature Source Pulse Rate 85 Pulse Rate from SpO2 Sensor 85 Respiratory Rate 23 Respiratory Effort / Characteristics Respiratory Depth Blood Pressure 159/87 H 159/87 H Blood Pressure Mean 120 120 Blood Pressure Position Pulse Oximetry 95 Oxygen Delivery Method Sepsis Recent Fever Within 48 Hours Sepsis New/Unexplained Change in Mental Status Sepsis Action Taken by Nursing 01/09/25 11:57 01/09/25 12:00 01/09/25 12:47 Temperature Temperature Source Pulse Rate 87 88 Pulse Rate from SpO2 Sensor 87 Respiratory Rate 19 Respiratory Effort / Characteristics Respiratory Depth Blood Pressure 156/84 H Blood Pressure Mean 112 Blood Pressure Position Pulse Oximetry 95 Oxygen Delivery Method Sepsis Recent Fever Within 48 Hours Sepsis New/Unexplained Change in Mental Status Sepsis Action Taken by Custodial Medications Current Medication List: was personally reviewed by me Laboratory Data Attestation: I reviewed the patient's lab results. 01/09/25 08:30 01/09/25 08:30 Lab Results 01/09/25 01/09/25 Range/Units 08:30 10:58 WBC 9.24 (4.8-10.8) K/ul RBC 4.45 (4.20-5.40) M/uL Hgb 16.0 (12.0-16.0) g/dl Hct 46.0 (37.0-47.0) % MCV 103.4 H (80.0-100.0) fL MCH 36.0 H (25.0-34.0) pg MCHC 34.8 (32.0-36.0) g/dL RDW Std Deviation 49.8 H (36.4-46.3) fL RDW Coeff of Isabela 13.0 (11.5-14.5) % Plt Count 206 (130-400) K/uL MPV 9.8 (9.4-12.4) fL Immature Gran % (Auto) 1.3 % Neut % (Auto) 84.1 % Lymph % (Auto) 4.9 % [place] % (Auto) 8.4 % Eos % (Auto) 1.0 % Baso % (Auto) 0.3 % Neut # (Auto) 7.77 H (1.40-6.50) K/uL Lymph # (Auto) 0.45 L (1.20-3.40) K/uL [place] # (Auto) 0.78 H (0.11-0.59) K/uL Eos # (Auto) 0.09 (0.00-0.50) K/uL Baso # (Auto) 0.03 (0.00-0.20) K/uL Immature Gran # (Auto) 0.12 (0.01-0.20) K/uL Sodium 134 L (136-145) mmol/L Potassium 3.9 (3.5-5.1) mmol/L Chloride 100 (98-107) mmol/L Carbon Dioxide 26 (21-32) mmol/L Anion Gap 8 (3-11) BUN 13 (6-23) mg/dl Creatinine 0.61 (0.6-1.2) mg/dl Est Cr Clr Drug Dosing Not Reportable eGFR 92.60 BUN/Creatinine Ratio 21.3 H (10-20) Glucose 88 (70-99(Fasting)) mg/dl Calcium 9.1 (8.6-10.3) mg/dl Magnesium 2.2 (1.7-2.4) mg/dl Total Bilirubin 0.6 (0.2-1.0) mg/dl AST 25 (13-39) U/L ALT 18 (7-52) U/L Alkaline Phosphatase 62 (34-104) U/L Troponin I High Sens 5.1 (0-14) pg/ml Total Protein 7.1 (6.0-8.3) gm/dl Albumin 4.1 (3.4-5.0) gm/dl Globulin 3.0 (2.5-4.0) gm/dl Albumin/Globulin Ratio 1.4 (0.9-2) TSH 1.010 (0.300-4.500) uIu/ml Urine Color Yellow Urine Appearance Clear (Clear) Urine pH 6.0 (4.5-7.5) Ur Specific [place] 1.021 (1.000-1.030) Urine Protein 1+ H (Negative) Urine Glucose (UA) Negative (Negative) Urine Ketones 3+ H (Negative) Urine Blood 2+ H (Negative) Urine Nitrite Negative (Negative) Urine Bilirubin Negative (Negative) Urine Urobilinogen Negative (Negative) Ur Leukocyte Esterase Negative (Negative) Urine WBC (Auto) 0-5 (0-5) /hpf Urine RBC (Auto) >20 H (0-2) /hpf U Hyaline Cast (Auto) 0-2 (0-2) /lpf U Epithel Cells (Auto) 0-2 (0-2) /hpf Urine Bacteria (Auto) None Seen (None Seen) Urine Comment Anaplasma Smear See Comment Babesia Smear See Comment Lyme Disease Screen Negative (Negative) Administered Medications Discontinued Medications Albuterol (Albut/Ipratrop 3mg/0.5mg Neb 3 Ml Vial) 3 ml NEB NOW STA; Protocol Stop: 01/09/25 08:57 Last Admin: 01/09/25 09:15 Dose: 3 ml Documented By: SHANKAR Dexamethasone Sodium Phosphate (DexamethasonePf 10 Mg/Ml Vial) 6 mg IV NOW ONE Stop: 01/09/25 08:57 Last Admin: 01/09/25 09:15 Dose: 6 mg Documented By: SHANKAR Sodium Chloride (Nss) 1,000 mls @ 999 mls/hr IV .Q1H1M ACE Stop: 01/09/25 09:45 Last Infusion: 01/09/25 10:09 Dose: Infused Documented By: Admin: 01/09/25 08:49 Dose: 999 mls/hr Documented By: SHANKAR Acetaminophen (Ofirmev) 1,000 mg in 100 mls @ 400 mls/hr IV NOW STA Stop: 01/09/25 09:11 Last Infusion: 01/09/25 09:40 Dose: Infused Documented By: Admin: 01/09/25 09:15 Dose: 400 mls/hr Documented By: SHANKAR Sodium Chloride (Nss) 500 mls @ 999 mls/hr IV .Q31M ONE Stop: 01/09/25 10:33 Last Infusion: 01/09/25 11:15 Dose: Infused Documented By: Admin: 01/09/25 10:32 Dose: 999 mls/hr Documented By: SHANKAR Ceftriaxone Sodium (Rocephin) 2,000 mg in 50 mls @ 100 mls/hr IV NOW STA Stop: 01/09/25 10:43 Last Infusion: 01/09/25 11:15 Dose: Infused Documented By: Admin: 01/09/25 10:31 Dose: 100 mls/hr Documented By: SHANKAR Ondansetron HCl (Ondansetron Inj 2 Mg/Ml 2 Ml Vial) 4 mg IV NOW STA Stop: 01/09/25 08:33 Last Admin: 01/09/25 08:49 Dose: 4 mg Documented By: SHANKAR Imaging Data Radiologist's Impression: Chest X-Ray 01/09/25 08:32 XR chest 1V portable HISTORY: 74 years-old Female weakness COMPARISON: CTA chest 11/04/2023 TECHNIQUE: AP view of the chest FINDINGS: Cardiomediastinal and hilar silhouettes are unchanged. Left subclavian pacer/AICD. Pulmonary emphysema. Linear scarring of right lung apex redemonstrated with chronic interstitial coarsening. No pneumothorax, pleural effusion or overt pulmonary edema. Mild subsegmental left basilar opacities. Bones appear grossly intact. IMPRESSION: Emphysema with mild left basilar opacities which may represent atelectasis versus pneumonia. ACT 112: Negative or not required by law. The above report was generated using voice recognition software. It may contain grammatical, syntax or spelling errors. Electronically signed by: Darron Esteban M.D. 01/09/2025 9:37 AM Discharge Plan Visit Data Chief Complaint: Illness Stated Complaint: FATIGUE, VOMITING, DVT OCTOBER 2023 ED Provider: Trino Dahl Discharge Problem: Weakness, Adrenal insufficiency, Vomiting and diarrhea, Acute dehydration, Pneumonia Patient Disposition: Admitted As Inpatient Condition: Fair Forms Stand Alone Forms: [facility] [employer] Prescriptions Prescriptions: No Action bupropion HCl 300 mg tablet extended release 24 hr 300 mg PO QAM Qty: 90 3RF dexamethasone sodium phosphate 4 mg/mL solution 4 mg IM ONCE PRN (Reason: adrenal crisis) Qty: 3 0RF Rx Instructions: use 4 mg once for emergency prednisone 2.5 mg tablet See Rx Instructions .ROUTE .COMPLEX Qty: 90 3RF Rx Instructions: Take 1mg w/ 2.5mg w/ 5mg tablet to equal 8.5mg by mouth every morning prednisone 1 mg tablet See Rx Instructions PO .COMPLEX Qty: 90 3RF Rx Instructions: Take 1mg w/ 5mg w/ 2.5mg tablet to equal 8.5mg by mouth every morning orally; prednisone 5 mg tablet See Rx Instructions .ROUTE .COMPLEX Qty: 180 3RF Rx Instructions: Take 5mg w/ 1mg w/ 2.5mg tablet to equal 8.5mg by mouth every morning may double in times of stress (DME) BD Eclipse Luer-Adam 3 mL 23 x 1" syringe See Rx Instructions .ROUTE .MEDSUPPLY Qty: 50 0RF Rx Instructions: Use to inject solu medrol as needed venlafaxine 150 mg capsule,extended release 24hr 150 mg PO QAM Qty: 90 1RF azithromycin 250 mg tablet 250 mg PO 3XWK Qty: 36 3RF Rx Instructions: Friday/Friday/Friday arformoterol [Brovana] 15 mcg/2 mL solution for nebulization 2 ml inhalation BID Qty: 360 2RF ipratropium bromide 0.02 % solution 0.5 mg inhalation BID Qty: 450 3RF Rx Instructions: USE 1 VIAL TWICE DAILY VIA NEBULIZER simvastatin 20 mg tablet 20 mg PO HS Qty: 90 3RF Asmanex Twisthaler 220 mcg/ actuation (120) aerosol powdr breath activated 2 inh inhalation BID Qty: 3 2RF nicotine (polacrilex) [Nicorette] 4 mg gum 4 mg buccal Q2H Rx Instructions: Unable to verify OTC meds with patient/family at this date/time. ascorbic acid (vitamin C) 500 mg capsule 500 mg PO HS Rx Instructions: Unable to verify OTC meds with patient/family at this date/time. chlorpheniramine maleate [ChlorTabs] 4 mg tablet 4 mg PO DAILY Patient Comments: takes 1 every morning Rx Instructions: do not exceed 2 doses per 24 hrs dabigatran etexilate [Pradaxa] 150 mg capsule 150 mg PO BID calcium carbonate [Calcium 500] 500 mg calcium (1,250 mg) tablet,chewable 500 mg PO QAM (DME) Oxygen Home Liters Per Minute See Rx Instructions .ROUTE .MEDSUPPLY Qty: 1 0RF Rx Instructions: Home oxygen concentrator with portability. 2 L via nasal cannula. Length of need 99 years. Saccharomyces boulardii [Daily Probiotic (S. boulardii)] 250 mg capsule 250 mg PO DAILY Rx Instructions: Unable to verify OTC meds with patient/family at this date/time. carvedilol 12.5 mg tablet 12.5 mg PO HS Rx Instructions: takes in evening metronidazole 0.75 % cream 1 applic topical BID PRN (Reason: Flare) ipratropium-albuterol 0.5 mg-3 mg(2.5 mg base)/3 mL solution for nebulization 3 ml inhalation Q6H PRN (Reason: wheezing) Qty: 180 3RF vitamin B complex Capsule 1 cap PO QAM Rx Instructions: Unable to verify OTC meds with patient/family at this date/time. carvedilol 6.25 mg tablet See Rx Instructions .ROUTE .COMPLEX Rx Instructions: Take 6.25mg w/ 3.125mg to equal 9.375mg by mouth every morning carvedilol [Coreg] 3.125 mg tablet See Rx Instructions .ROUTE .COMPLEX Rx Instructions: Take 3.125mg w/ 6.25mg to equal 9.375mg by mouth every morning Referrals Referrals: Nurys Blanchard MD [Primary Care Provider] - Discharge Problem: Pneumonia Qualifiers: Pneumonia type: due to unspecified organism Laterality: left Lung location: l ower lobe of lung Qualified Code(s): J18.9 - Pneumonia, unspecified organism
[2025-01-09 09:15] LABS: Troponin I High Sensitivity 5.1 pg/ml (0-14)
[2025-01-09] MEDS: dexAMETHasone**PF** 10 MG/ML VIAL IV ONE (09:15)
[2025-01-09] MEDS: ACETAMINOPHEN 1,000 MG/100 ML VIAL IV STA (09:15)
[2025-01-09] MEDS: ALBUT/IPRATROP 3MG/0.5MG NEB 3 ML VIAL NEB STA (09:15)
--- NOTE | 2025-01-09 09:38 | XRay Report ---
XR chest 1V portable HISTORY: 74 years-old Female weakness COMPARISON: CTA chest 11/04/2023 TECHNIQUE: AP view of the chest FINDINGS: Cardiomediastinal and hilar silhouettes are unchanged. Left subclavian pacer/AICD. Pulmonary emphysem a. Linear scarring of right lung apex redemonstrated with chronic interstitial coarsening. No pneumot horax, pleural effusion or overt pulmonary edema. Mild subsegmental left basilar opacities. Bones brina ear grossly intact. IMPRESSION: Emphysema with mild left basilar opacities which may represent atelectasis versus pneumon ia. ACT 112: Negative or not required by law. The above report was generated using voice recognition software. It may contain grammatical, syntax o r spelling errors. Electronically signed by: Darron Esteban M.D. 01/09/2025 9:37 AM
[2025-01-09] MEDS: cefTRIAXone SODIUM 2,000 MG/50 ML BAG IV STA (10:31)
[2025-01-09] MEDS: SODIUM CHLORIDE 0.9% 500 ML IV ONE (10:32)
[2025-01-09 11:15] LABS: Appearance Urine Clear (Clear); Bacteria Urine Automated None Seen (None Seen); Bilirubin Urine Negative (Negative); Blood Urine 2+ (Negative); Cast Urine Automated 0-2 /lpf (0-2); Color Urine Yellow; Epithelial Cell Urine Auto 0-2 /hpf (0-2); Glucose Urine UA Negative (Negative); Ketones Urine 3+ (Negative); Leukocyte Esterase Urine Negative (Negative); Nitrite Urine Negative (Negative); Protein Urine 1+ (Negative); RBC Urine Automated >20 /hpf (0-2); Specific Gravity Urine 1.021 (1.000-1.030); Urobilinogen Urine Negative (Negative); WBC Urine Automated 0-5 /hpf (0-5)
--- NOTE | 2025-01-09 11:58 | Electrocardiogram Report ---
Test Reason : Blood Pressure : */* mmHG Vent. Rate : 78 BPM Atrial Rate : 78 BPM P-R Int : 180 ms QRS Dur : 84 ms QT Int : 420 ms P-R-T Axes : 76 41 70 degrees QTcB Int : 478 ms Normal sinus rhythm Normal ECG When compared with ECG of 18-Dec-2023 13:45, (unconfirmed) Nonspecific T wave abnormality no longer evident in Inferior leads T wave inversion no longer evident in Lateral leads Confirmed by Samy Ortiz ([id number]) on 01/09/2025 11:57:49 AM Referred By: REFERRED SELF Confirmed By: Samy Ortiz
[2025-01-09] MEDS: AZITHROMYCIN 500 MG/255 ML BAG IV ONE (13:09)
--- NOTE | 2025-01-09 14:16 | History & Physical Report ---
Date of Service January 09, 2025 Assessment & Plan (1) Pneumonia: (2) Vomiting and diarrhea: (3) Adrenal insufficiency: (4) COPD (chronic obstructive pulmonary disease): Renetta Horton is a 74-year-old woman with severe COPD on 2 L home oxygen and chronic prednisone, idiopathic cardiomyopathy EF around 50%, adrenal insufficiency who is admitted with acute gastroenteritis and left basilar community-acquired pneumonia # acute gastroenteritis, dehydration IV fluids, IV antiemetics with ondansetron and Compazine Stool BioFire Monitor urine output and BMP # Community-acquired pneumonia, underlying severe COPD on nocturnal home oxyg en and nebulizers as well as percussion vest her home regimen on which she has been stable for 10 years includes twice a day regimen of ipratropium nebulizer, Brovana nebulizer, Asmanex 220 mcg all during this she is using her home percussion vest. Unfortunately her home vest fits her well but the vest at the hospital do not fit her so it is not helpful to do it here continue ceftriaxone 2 g IV daily for 5-7 days, hold her chronic azithromycin and treat with doxycycline 100 mg twice daily for 5-7 days. I will leave the doxycycline IV until she is tolerating p.o. she is at risk for colonization with resistant gram-negative organisms because of her chronic lung disease, if not improving on this will broaden to cefepime ordered sputum culture Flutter valve, I-S, mobility For her COPD she will be on steroids as discussed below, continue usual bronchodilators including DuoNebs and budesonide nebs, additional DuoNeb or albuterol as needed, steroid inhaler Oxygen sat goal is 88% Check procalcitonin now [ resulted low at 0.13] and in the morning White blood count 9, afebrile so far COPD is followed by Dr. Magana # malaise fatigueseems to be related to the above, tick studies were sent Lyme screen was negative, anaplasmosis and babesiosis blood smears were negative, follow-up the DNA studies which are pending # secondary adrenal insufficiency, chronic prednisone Continue dexamethasone for stress dose steroids, dosing 6 mg IV twice daily, changed to prednisone 40 mg daily in the a.m. in the past endocrinology tried to transition her to hydrocortisone however this was unsuccessful so she remains on prednisone # idiopathic nonischemic cardiomyopathy / hypertension / hyperlipidemia followed by Dr. Hernandez I reviewed his most recent progress note. Normal cath most recently in 2010 well-controlled continue carvedilol lisinopril simvastatin last echo 10/2023 mildly reduced LV systolic function at 45-50% mild global hypokinesis no LVH no valvular abnormalities she has a pacerICD no evidence of heart failure at this time. was very volume depleted and dry appearing on arrival to the ED # tobacco dependence# 12-wklt-auoy smoking history, counseled cessation continue nicotine gum, add nicotine patch if desired # mood disorderstable continue bupropion and venlafaxine # hemochromatosis heterozygotehas needed phlebotomy in the past when ferritin greater than 100 recently once or twice a year, followed by hematology Dr. 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 We did talk somewhat about her severe lung disease and that she may do poorly if she is intubated. I do not see risk of getting intubated this admission. I encouraged them to keep talking to their safe and vault service mechanic about this as her health evolves. History of Present Illness Chief Complaint: nausea, vomiting, diarrhea, cough, weakness 24-48h Primary Care Provider: Nurys Blanchard MD Sol is a 74-year-old woman with 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 She also has a cough. She was significantly dehydrated on presentation. symptoms started 48 hours ago with profound fatigue/malaise. then she developed several episodes of vomiting and few large-volume diarrhea stools. After the diarrhea she was completely wiped out and too weak to even get up. It was nonbloody. No sick contacts. She has not had any abdominal pain or chest pain. no fevers She does feel better after getting IV fluids in the ED Allergies Allergy/AdvReac Type Severity Reaction Status Date / Time Gadolinium-Containing Allergy Severe WENT INTO Verified 01/09/25 12:41 Contrast Medi SHOCK moxifloxacin [From Avelox] Allergy "didn't Verified 01/09/25 12:41 feel well" midazolam AdvReac Intermediate CONFUSION Verified 01/09/25 12:41 AND DECREASED BP Home Medications Medication Instructions Recorded Confirmed Type vitamin B complex 1 cap PO QAM 07/21/18 01/09/25 History ascorbic acid (vitamin C) 500 mg 500 mg PO HS 09/05/21 01/09/25 History capsule nicotine (polacrilex) 4 mg gum 4 mg buccal Q2H 09/05/21 01/09/25 History (Nicorette) Saccharomyces boulardii 250 mg 250 mg PO DAILY 12/03/22 01/09/25 History capsule (Daily Probiotic (S. boulardii)) Oxygen Home #1 L 01/13/23 09/07/24 Rx chlorpheniramine maleate 4 mg 4 mg PO DAILY Runny Nose 04/10/23 01/09/25 History tablet (ChlorTabs) carvedilol 3.125 mg tablet (Coreg) See Rx Instructions .Route .COMPLEX 11/04/23 01/09/25 History carvedilol 6.25 mg tablet See Rx Instructions .Route .COMPLEX 11/04/23 01/09/25 History calcium carbonate (Calcium 500) 500 mg PO QAM 11/07/23 01/09/25 History ipratropium 0.5 mg-albuterol 3 mg 3 ml inhalation Q6H PRN wheezing 02/09/24 01/09/25 Rx (2.5 mg base)/3 mL nebulization #180 mL soln metronidazole 0.75 % topical cream 1 applic topical BID PRN Flare 04/09/24 01/09/25 History bupropion HCl 300 mg 24 hr tablet, 300 mg PO QAM #90 tabs 05/10/24 01/09/25 Rx extended release carvedilol 12.5 mg tablet 12.5 mg PO HS 05/10/24 01/09/25 History dexamethasone sodium phosphate 4 4 mg IM ONCE PRN adrenal crisis #3 06/17/24 01/09/25 Rx mg/mL injection solution vials prednisone 1 mg tablet See Rx Instructions PO .COMPLEX 06/28/24 01/09/25 Rx #90 tabs prednisone 2.5 mg tablet See Rx Instructions .Route 06/28/24 01/09/25 Rx .COMPLEX #90 tabs prednisone 5 mg tablet See Rx Instructions .Route 06/28/24 01/09/25 Rx .COMPLEX #180 tabs syringe with needle 3 mL 23 x 1" #50 ea 07/21/24 09/07/24 Rx (BD Eclipse Luer-Adam) azithromycin 250 mg tablet 250 mg PO 3XWK #36 tabs 07/26/24 01/09/25 Rx venlafaxine 150 mg 150 mg PO QAM #90 caps 07/26/24 01/09/25 Rx capsule,extended release 24 hr arformoterol 15 mcg/2 mL solution 2 ml inhalation BID #360 mL 08/10/24 01/09/25 Rx for nebulization (Brovana) dabigatran etexilate 150 mg 150 mg PO BID 09/07/24 01/09/25 History capsule (Pradaxa) ipratropium bromide 0.02 % 0.5 mg (2.5 mL) inhalation BID 10/12/24 01/09/25 Rx solution for inhalation #450 mL simvastatin 20 mg tablet 20 mg PO HS #90 tabs 10/20/24 01/09/25 Rx mometasone 220 mcg/actuation(120 2 inh inhalation BID #3 Inhalers 11/30/24 01/09/25 Rx doses)breath activated powder inhaler (Asmanex Twisthaler) Past Med/Surg History Problem List Pneumonia (Acute) Acute dehydration (Acute) Vomiting and diarrhea (Acute) Adrenal insufficiency (Acute) Weakness (Acute) Osteopenia May-Thurner syndrome H/O deep venous thrombosis Left lower extremity November 04, 2023 Osteopenia Vitamin D deficiency Vitamin B12 deficiency Hypoxia Nail deformity Adrenal insufficiency COPD (chronic obstructive pulmonary disease) Fatigue (Acute) Multinodular goiter (Acute) Subserous leiomyoma of uterus (Acute) Nutcracker phenomenon of renal vein (Acute) GERD (gastroesophageal reflux disease) Hoarseness Lesion of vocal cord Hyperlipidemia Tiredness Hemochromatosis Bronchiectasis ICD (implantable cardioverter-defibrillator), single, in situ Polyp of gallbladder Health care maintenance snf systemic steroid user (Acute) Myalgia Depression Cerebral aneurysm 2006 Nonischemic cardiomyopathy Cardio/EP 07/20/18: "Clinically she is doing , normal left ventricular size and function." Chronic sinusitis (Acute) Essential hypertension (Acute) Abnormal CT scan, chest Chronic dyspnea Migraine Multiple pulmonary nodules determined by computed tomography of lung Medical History Adrenal insufficiency Leg pain, bilateral Hordeolum of left eye Forgetfulness Tremor Acute DVT (deep venous thrombosis) Elevated troponin Leukocytosis Acute leg pain COVID JACOB (dyspnea on exertion) Serum calcium elevated Wound of right upper extremity Joint pain Headache Rib fracture Facial dermatitis Rash Vocal cord nodule "LUMP ON VOCAL CORD" - REPORTED REASON FOR UPCOMING SURGERY BY PT History of ischemic colitis Thyroid cyst SOBOE (shortness of breath on exertion) Ovarian cyst, bilateral Ovarian cyst Lung nodule NOT MENTIONED BY PT DURING PAT CALL Lesion of vocal fold Hoarseness of voice PT DENIES TROUBLE SWALLOWING Cough 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 Had ICD inserted in 06/2009, but EF has recovered to ~50% per patient and as of 2017. COPD (chronic obstructive pulmonary disease) 60 pack-year smoker; quit ~1999; nebulizers daily Surgical History History of biopsy THYROID History of cerebral aneurysm repair "coil" 2006 Status post excision of vocal cord nodule had ulceration on vocal cords- biopsy done- benign History of anesthesia reaction with Versed during brochoscopy--confusion and decrease in BP Nausea and vomiting after administration of anesthetic agent History of bilateral tubal ligation History of dilatation and curettage History of carpal tunnel release of both wrists History of esophagogastroduodenoscopy (EGD) History of colonoscopy 2 polyps removed History of appendectomy History of tooth extraction wisdom teeth History of tonsillectomy S/P thyroid biopsy benign History of endoscopic sinus surgery History of bilateral cataract extraction History of cardiac cath x1--2009 @ [facility]/2011 @ [facility] [place]--no stents History of bronchoscopy x6 S/P coil embolization of cerebral aneurysm 03/2007 @ [facility] [place] S/P ICD (internal cardiac defibrillator) procedure 2007 Family History Brother Cardiomyopathy Sister Cardiomyopathy Bipolar disorder Grandfather (Maternal) Family hx of colon cancer Mother Kidney disease Bipolar disorder Father Prostate cancer Aunt Myocardial infarction Aunt Breast cancer Unknown Allergies FHx: deafness or hearing loss Cardiac disorder Sinusitis Other No family history of bleeding disorder Social History Smoking Status: Former smoker Tobacco Type: Cigarettes Age Started Using Tobacco: 14; Age Quit Using Tobacco: 48; packs per day: 2; Second Hand Exposure: No; Do You Dip or Chew Tobacco: No; Tobacco Cessation Education Requested by Patient: No Hx Alcohol Use: Yes Alcohol type: beer Hx Substance Use: No Preferred Language: Telugu Communication Ability: Effective Visual Impairment: No Limitations Hearing Ability: Normal Heliarc Welder Required: No Beliefs That Will Affect Care: None marital status: Current Living Situation: Spouse current occupational status: retired Other Information That Helps Us Care for You: No Feels Safe at Home: Yes Safety Concerns: Feels Safe At This Time Childhood Exposure to Second-Hand Smoke: Yes Dental Care, Regularly: Yes Physical Activity Frequency: Daily Seatbelt Use: always Sunscreen Use: Yes Assistive Devices: Glasses Review of Systems Review of Systems: All systems reviewed & are unremarkable except as noted in HPI & below Physical Exam Physical Exam: Last 24h vitals reviewed GEN: no acute distress, sitting in bed HEENT: pupils equal, sclerae anicteric, moist MM RESP: normal WOB, fine crackles bilaterally posteriorly two thirds of the way up, no wheezing, coarser more prominent crackles in left base CV: reg no mrg ABD: soft/nt/nd +BT : no russ SKIN: warm and dry, no generalized rashes extremities warm well-perfused, no lower extremity edema NEURO: AOx person, place, and situation. Face symmetric, speech normal, moves 4 ext spontaneously and equally Results & Data Results & Data Vital Signs (Past 12 Hours) Vital Signs Temp Pulse Resp BP Pulse Ox O2 Del Method 01/09/25 12:47 88 01/09/25 12:00 156/84 H 01/09/25 11:57 87 19 95 01/09/25 11:33 85 23 95 01/09/25 11:30 159/87 H 01/09/25 11:30 159/87 H 01/09/25 11:00 163/84 H 01/09/25 10:27 83 22 148/85 H 95 Room Air 01/09/25 10:06 80 21 163/79 H 93 01/09/25 09:30 24 171/90 H 100 01/09/25 09:00 78 22 155/80 H 96 Room Air 01/09/25 08:57 76 23 95 Room Air 01/09/25 08:38 74 22 136/78 97 Room Air 01/09/25 08:34 79 01/09/25 08:16 36.5 C 87 18 112/57 L 95 Room Air Laboratory Results white blood count is normal at 9, hemoglobin is 16, platelets are normal Sodium 134 potassium 3.9 BUN 13 creatinine 0.61 which is her baseline, BUN to creatinine ratio elevated consistent with dehydration. Magnesium normal at 2.2 LFTs are normal Troponin 5.1 TSH is 1 UA is negative for pyuria she does have ketones and 1+ protein, 2+ blood with g reater than 20 red cells Diagnostic Findings I personally reviewed the chest x-ray film there is a left basilar infiltrates causing a silhouette sign of the left heart border ECG Additional Comments: I personally reviewed the EKG tracing and it is a normal EKG PG Care Time/CCT Total # of Minutes Spent Total Time Spent with Patient: Total time spent is greater than 50% in coordination of care (as documented) at patient's floor/unit and/or counseling patient: Coding Level of Care Code 31228 INT INP/OBS CARE 375MIN Diagnoses Pneumonia J18.9 Laterality: left Lung location: lower lobe of lung Pneumonia type: due to unspecified organism Vomiting and diarrhea R11.10; R19.7 Adrenal insufficiency E27.40 COPD (chronic obstructive pulmonary disease) J44.9 (1) Pneumonia Laterality: left Lung location: lower lobe of lung Pneumonia type: due to unspecified organism Qualified Code(s): J18.9 - Pneumonia, unspecified organism
[2025-01-09] MEDS ORDERED: ALUMINUM/MAGNESIUM SUSP 30 ML UDC PO PRN (15:16)
[2025-01-09] MEDS ORDERED: PROCHLORPERAZINE 5 MG in SYRINGE 4 ML IV PRN (15:16)
[2025-01-09] MEDS ORDERED: MELATONIN 3 MG TAB PO PRN (15:16)
[2025-01-09] MEDS ORDERED: ALBUT/IPRATROP 3MG/0.5MG NEB 3 ML VIAL INH PRN (15:16)
[2025-01-09] MEDS ORDERED: MAGNESIUM HYDROXIDE SUSP 30 ML UDC PO PRN (15:16)
[2025-01-09] MEDS ORDERED: ALBUT/IPRATROP 3MG/0.5MG NEB 3 ML VIAL NEB PRN (15:16)
[2025-01-09] MEDS ORDERED: ACETAMINOPHEN 325 MG TAB PO PRN (15:16)
[2025-01-09] MEDS ORDERED: ONDANSETRON INJ 2 MG/ML 2 ML VIAL IV PRN (15:16)
[2025-01-09] MEDS ORDERED: POLYETHYLENE (MIRALAX) 17 GM PACK PO PRN (15:16)
[2025-01-09] MEDS ORDERED: NICOTINE POLACRILEX 2 MG GUM MT PRN (15:35)
[2025-01-09] MEDS: DOXYCYCLINE HYCLATE 100 MG in DEXTROSE 5% MINI-B 100 ML IV SCH (16:32)
[2025-01-09] MEDS: dexAMETHasone 6 MG in SYRINGE 0 ML IV ONE (16:36)
[2025-01-09] MEDS ORDERED: DEXAMETHASONE SOD INJ 4 MG/ML VIAL IV SCH (17:00)
[2025-01-09] MEDS ORDERED: DEXAMETHASONE SOD INJ 4 MG/ML VIAL IV ONE (17:00)
[2025-01-09] MEDS: FORMOTEROL 20 MCG/2 ML VIAL INH SCH (18:44)
[2025-01-09] MEDS: IPRATROPIUM BROMIDE NEB SOLN 0.02% 0.5MG/2.5ML VIAL INH SCH (19:11)
[2025-01-09] MEDS: carvediloL 12.5 MG TAB PO SCH (20:24)
[2025-01-09] MEDS: DABIGATRAN ETEXILATE 75 MG CAP PO SCH (20:24)
[2025-01-09] MEDS: SIMVASTATIN 20 MG TAB PO SCH (20:24)
[2025-01-09] MEDS: FLUTICASONE FUROATE 100MCG 14 PUFFS/INHALER INH SCH (20:25)
[2025-01-09 22:43] LABS: Adenovirus F 40/41 PCR Not Detected (NotDetected); Astrovirus PCR Not Detected (NotDetected); Campylobacter PCR Not Detected (NotDetected); Cryptosporidium PCR Not Detected (NotDetected); Cyclospora cayetanensis PCR Not Detected (NotDetected); Entamoeba histolytica PCR Not Detected (NotDetected); Enteroaggregative E.coli(EAEC) Not Detected (NotDetected); Enteropathogenic E.coli (EPEC) Not Detected (NotDetected); Enterotoxigenic E.coli (ETEC) Not Detected (NotDetected); Giardia lamblia PCR Not Detected (NotDetected); Norovirus GI/GII PCR Not Detected (NotDetected); Plesiomonas shigelloides PCR Not Detected (NotDetected); Rotavirus A PCR Not Detected (NotDetected); Salmonella PCR Not Detected (NotDetected); Sapovirus PCR Not Detected (NotDetected); Shiga-like Toxin E.coli (STEC) Not Detected (NotDetected); Shigella/Enteroinvasive E.coli Not Detected (NotDetected); Vibrio cholerae PCR Not Detected (NotDetected); Vibrio species PCR Not Detected (NotDetected); Yersinia enterocolitica PCR Not Detected (NotDetected)
[2025-01-10 05:56] LABS: Hematocrit (blood only) 42.8 % (37.0-47.0); Hemoglobin 14.5 g/dl (12.0-16.0); Mean Corpuscular Hemoglobin 34.6 pg (25.0-34.0); Mean Corpuscular Hgb Conc 33.9 g/dL (32.0-36.0); Mean Corpuscular Volume 102.1 fL (80.0-100.0); Platelet Count 226 K/uL (130-400); RDW Coefficient of Variation 12.5 % (11.5-14.5); RDW Standard Deviation 46.8 fL (36.4-46.3); Red Blood Count 4.19 M/uL (4.20-5.40); White Blood Count 7.34 K/ul (4.8-10.8)
[2025-01-10 06:14] LABS: BUN Creatinine Ratio 18.5 (10-20); Calcium 8.7 mg/dl (8.6-10.3); Magnesium 2.2 mg/dl (1.7-2.4); Potassium 3.9 mmol/L (3.5-5.1)
[2025-01-10 07:14] VITALS: RESP 16
[2025-01-10] MEDS: buPROPion XL 300 MG TABCR PO SCH (07:16)
[2025-01-10] MEDS: carvediloL 3.125 MG TAB PO SCH (07:16)
[2025-01-10] MEDS: predniSONE 20 MG TAB PO SCH (07:17)
[2025-01-10] MEDS: SACCHAROMYCES BOULARDII 250 MG CAP PO SCH (07:18)
[2025-01-10] MEDS: VENLAFAXINE HCL XR 150 MG CAPXR PO SCH (07:18)
[2025-01-10] MEDS ORDERED: FLUTICASONE FUROATE 100MCG 14 PUFFS/INHALER INH SCH (09:00)
[2025-01-10] MEDS: cefTRIAXone SODIUM 2,000 MG/50 ML BAG IV SCH (11:17)
[2025-01-10] MEDS: DOXYCYCLINE HYCLATE 100 MG CAP PO SCH (13:31)
[2025-01-10 14:57] VITALS: BP 154/85; PULSE 77; TEMP 97.5; O2SAT 96
--- NOTE | 2025-01-10 15:27 | Discharge Summary ---
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 and chronic prednisone, idiopathic cardiomyopathy EF around 50%, adrenal insufficiency who was admitted with acute gastroenteritis and left basilar community-acquired pneumonia # acute gastroenteritis, dehydration IV fluids, IV antiemetics with ondansetron given at admission, symptoms resolv ed no diarrhea in hospital so no specimens collected --recommended probiotic # Community-acquired pneumonia, underlying severe COPD on nocturnal home oxygen and nebulizers as well as percussion vest pneumonia based on cough with purulent sputum, increased hypoxia from baseline, left basilar infiltrate on CXR and abnormal lung exam. Afebrile with normal WBC and procalcitonins were negative her home regimen on which she has been stable for 10 years includes twice a day regimen of ipratropium nebulizer, Brovana nebulizer, Asmanex 220 mcg all during this she is using her home percussion vest. COPD was not in exacerbation this admission. Treated with prednisone taper mainly because of adrenal insufficiency and physiologic stress. treated with ceftriaxone / doxy. complete 7 days of cefuroxime / doxy at discharge she is at risk for colonization with resistant gram-negative organisms because of her chronic lung disease, if not improving on this will need broader antibiotics. Unable to collect sputum culture prior to discharge. -prednisone taper 40 x 3d, 20 x 3d, 10 x 3d then resume usual dose which is around 8 mg COPD is followed by Dr. Dos Santos - [facility] for sooner follow up appt # malaise fatigue generalized weaknessrelated to above issues and resolved, tick studies were sent Lyme screen was negative, anaplasmosis and babesiosis blood smears were negative, follow-up the DNA studies which are pending # secondary adrenal insufficiency, chronic prednisone treated with stress dose steroids dexamethasone by ED then prednisone, see above in the past endocrinology tried to transition her to hydrocortisone however this was unsuccessful so she remains on prednisone # idiopathic nonischemic cardiomyopathy / hypertension / hyperlipidemia followed by Dr. Hernandez I reviewed his most recent progress note. Normal cath most recently in 2010 well-controlled continue carvedilol lisinopril simvastatin last echo 10/2023 mildly reduced LV systolic function at 45-50% mild global hypokinesis no LVH no valvular abnormalities she has a pacerICD no evidence of heart failure at this time. was very volume depleted and dry appearing on arrival to the ED. euvolemic at discharge # tobacco dependence# [id number] smoking history, counseled cessation continue nicotine gum, add nicotine patch if desired # mood disorderstable continue bupropion and venlafaxine # hemochromatosis heterozygotehas needed phlebotomy in the past when ferritin greater than 100 recently once or twice a year, followed by hematology Dr. 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 because of cost, per recommendations of rose grader I reviewed previous hematology and vascular surgery notes # history of a subarachnoid hemorrhage which [place] [facility] [place] # abnormal UA hematuria, proteinuria - follow-up in primary care Notes For Next Care Provider blood cultures, babesiosis and anaplasmosis PCR still pending abnormal UA with hematuria and proteinuria in the ED - please obtain follow up UA and further evaluation as indicated Medication Changes From Visit antibiotics - cefuroxime and doxy prednisone taper Admission HPI Per Admitting Provider Sol is a 74-year-old woman with 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 She also has a cough. She was significantly dehydrated on presentation. symptoms started 48 hours ago with profound fatigue/malaise. then she developed several episodes of vomiting and few large-volume diarrhea stools. After the diarrhea she was completely wiped out and too weak to even get up. It was nonbloody. No sick contacts. She has not had any abdominal pain or chest pain. no fevers She does feel better after getting IV fluids in the ED Discharge Exam Last 24h vitals reviewed GEN: no acute distress, sitting in bed, looks MUCH better HEENT: pupils equal, sclerae anicteric, moist MM RESP: normal WOB, left base crackles substantially improved, right base now clear, no wheezing, +cough CV: reg no mrg ABD: soft/nt/nd +BT : no russ SKIN: warm and dry, no generalized rashes extremities warm well-perfused, no lower extremity edema NEURO: AOx person, place, and situation. Face symmetric, speech normal, moves 4 ext spontaneously and equally Discharge Plan Discharge Items Patient Disposition: Home - Self-Care Reason For Visit: GASTROENTERITITS, PNEUMONIA Discharge Diagnosis: gastroenteritis, pneumonia Condition on Discharge: Fair Activity: Resume your previous activity Non-emergency contact: Primary Care Provider and [employer] Call non-emergency contact if: you have any medication questions, your symptoms worsen and you have a fever Follow-up/Referrals: Nurys Blanchard MD [Primary Care Provider] - Diet: Regular Addtl Attending Provider Instructions: You were treated for dehydration from gastroenteritis (nausea, vomiting, diarrhea) and pneumonia I ordered a short prednisone taper and some antibiotics (cefuroxime and doxycycline). These are fairly broad, but if you fail to improve, your doctor may have to switch antibiotics Continue your usual pulmonary regimen except you can hold your azithromycin until you are finished with the other antibiotics It is a good idea to take a probiotic for 2-4 weeks You were also tested for tickborne diseases by the ER - lyme was negative and blood smears were negative for anaplasmosis and babesiosis, but the DNA tests won't result for a couple of weeks. Incidentally, doxycycline treats lyme and anaplasmosis, but not babesiosis. Follow up in primary care. It was a pleasure taking care of you in the hospital, Aixa Heredia MD Pending Studies at Discharge: Yes (anaplasmosis and babesiosis DNA test (blood smears were negative)) Stand-Alone Forms: My [facility] [employer], Smoking Cessation Medications and DC Order Prescriptions: New doxycycline hyclate 100 mg Capsule 100 mg PO BID Qty: 14 0RF cefuroxime axetil 500 mg tablet 500 mg PO BID 7 Days Qty: 14 0RF prednisone 10 mg tablet See Taper PO DIRECTED Qty: 21 0RF Taper: Taper, Blank 40 mg DAILY for 3 Days 20 mg DAILY for 3 Days 10 mg DAILY for 3 Days Rx Instructions: see taper instructions Continued bupropion HCl 300 mg tablet extended release 24 hr 300 mg PO QAM Qty: 90 3RF dexamethasone sodium phosphate 4 mg/mL solution 4 mg IM ONCE PRN (Reason: adrenal crisis) Qty: 3 0RF Rx Instructions: use 4 mg once for emergency (DME) BD Eclipse Luer-Adam 3 mL 23 x 1" syringe See Rx Instructions .ROUTE .MEDSUPPLY Qty: 50 0RF Rx Instructions: Use to inject solu medrol as needed venlafaxine 150 mg capsule,extended release 24hr 150 mg PO QAM Qty: 90 1RF arformoterol [Brovana] 15 mcg/2 mL solution for nebulization 2 ml inhalation BID Qty: 360 2RF ipratropium bromide 0.02 % solution 0.5 mg inhalation BID Qty: 450 3RF Rx Instructions: USE 1 VIAL TWICE DAILY VIA NEBULIZER simvastatin 20 mg tablet 20 mg PO HS Qty: 90 3RF Asmanex Twisthaler 220 mcg/ actuation (120) aerosol powdr breath activated 2 inh inhalation BID Qty: 3 2RF nicotine (polacrilex) [Nicorette] 4 mg gum 4 mg buccal Q2H Rx Instructions: Unable to verify OTC meds with patient/family at this date/time. ascorbic acid (vitamin C) 500 mg capsule 500 mg PO HS Rx Instructions: Unable to verify OTC meds with patient/family at this date/time. chlorpheniramine maleate [ChlorTabs] 4 mg tablet 4 mg PO DAILY Patient Comments: takes 1 every morning Rx Instructions: do not exceed 2 doses per 24 hrs dabigatran etexilate [Pradaxa] 150 mg capsule 150 mg PO BID calcium carbonate [Calcium 500] 500 mg calcium (1,250 mg) tablet,chewable 500 mg PO QAM (DME) Oxygen Home Liters Per Minute See Rx Instructions .ROUTE .MEDSUPPLY Qty: 1 0RF Rx Instructions: Home oxygen concentrator with portability. 2 L via nasal cannula. Length of need 99 years. Saccharomyces boulardii [Daily Probiotic (S. boulardii)] 250 mg capsule 250 mg PO DAILY Rx Instructions: Unable to verify OTC meds with patient/family at this date/time. carvedilol 12.5 mg tablet 12.5 mg PO HS Rx Instructions: takes in evening metronidazole 0.75 % cream 1 applic topical BID PRN (Reason: Flare) ipratropium-albuterol 0.5 mg-3 mg(2.5 mg base)/3 mL solution for nebulization 3 ml inhalation Q6H PRN (Reason: wheezing) Qty: 180 3RF vitamin B complex Capsule 1 cap PO QAM Rx Instructions: Unable to verify OTC meds with patient/family at this date/time. carvedilol 6.25 mg tablet See Rx Instructions .ROUTE .COMPLEX Rx Instructions: Take 6.25mg w/ 3.125mg to equal 9.375mg by mouth every morning carvedilol [Coreg] 3.125 mg tablet See Rx Instructions .ROUTE .COMPLEX Rx Instructions: Take 3.125mg w/ 6.25mg to equal 9.375mg by mouth every morning Held prednisone 2.5 mg tablet See Rx Instructions .ROUTE .COMPLEX Qty: 90 3RF Hold Instructions: Resume on 01/13/25. resume once prednisone taper finished Rx Instructions: Take 1mg w/ 2.5mg w/ 5mg tablet to equal 8.5mg by mouth every morning prednisone 1 mg tablet See Rx Instructions PO .COMPLEX Qty: 90 3RF Hold Instructions: Resume on 01/13/25. resume once prednisone taper finished Rx Instructions: Take 1mg w/ 5mg w/ 2.5mg tablet to equal 8.5mg by mouth every morning orally; prednisone 5 mg tablet See Rx Instructions .ROUTE .COMPLEX Qty: 180 3RF Hold Instructions: Resume on 01/13/25. resume once prednisone taper finished Rx Instructions: Take 5mg w/ 1mg w/ 2.5mg tablet to equal 8.5mg by mouth every morning may double in times of stress azithromycin 250 mg tablet 250 mg PO 3XWK Qty: 36 3RF Hold Instructions: Resume on 01/17/25. resume once other antibiotics are completed Rx Instructions: Friday/Friday/Friday Discharge Orders: Discharge Order (Routine); Ordered 01/10/25 Ordered By: Aixa Heredia Admission Data Admit Date/Time: 01/09/25 13:53 Attending Provider: Aixa Heredia Admit Provider: Aixa Heredia Primary Care Provider: Nurys Blanchard V. Other Providers: Aixa Heredia Other Interventions: Discharge Summary Assessment (RN) Last Done: 01/10/25 15:01 Hospital Stay Data Consultations 01/09/25 12:14 ED Decision to Admit Stat Pending Results Patient Have Any Pending Studies at Discharge: Yes (anaplasmosis and babesiosis DNA test (blood smears were negative)) Discharge Instructions Given to Patient (Per Discharging Provider) You were treated for dehydration from gastroenteritis (nausea, vomiting, diarrhea) and pneumonia I ordered a short prednisone taper and some antibiotics (cefuroxime and doxycycline). These are fairly broad, but if you fail to improve, your doctor may have to switch antibiotics Continue your usual pulmonary regimen except you can hold your azithromycin until you are finished with the other antibiotics It is a good idea to take a probiotic for 2-4 weeks You were also tested for tickborne diseases by the ER - lyme was negative and blood smears were negative for anaplasmosis and babesiosis, but the DNA tests won't result for a couple of weeks. Incidentally, doxycycline treats lyme and anaplasmosis, but not babesiosis. Follow up in primary care. It was a pleasure taking care of you in the hospital, Aixa Heredia MD Total Time Total Time Spent Total Time Spent (In Minutes): I personally spent: 40 minutes today on clinical care activities including: reviewing chart notes and vital signs reviewing labs discussion with early breastfeeding care specialist examining and counseling the patient counseling the patient's family writing prescriptions, discharge instructions documentation Coding Level of Care Code 71399 INP/OBS DISCH >30 MIN Diagnoses Pneumonia J18.9 Laterality: left Lung location: lower lobe of lung Pneumonia type: due to unspecified organism Vomiting and diarrhea R11.10; R19.7 Adrenal insufficiency E27.40 COPD (chronic obstructive pulmonary disease) J44.9
[2025-01-13 07:42] LABS: Babesia microti DNA Not Detected (Not Detected)
== END 2025-01-10 15:32 | disposition home or self-care (01) ==
LOC: 3E 08:09 → ED 08:09 → 3E 14:58

== ENCOUNTER 2025-02-04 09:50 | Inpatient (IN) ==
--- NOTE | 2025-02-04 10:16 | Emergency Department Note ---
Impression & Plan Hypoxic respiratory failure, Abdominal pain, Vomiting and diarrhea ED Provider Note NAME: LAURE INIGUEZ AGE: 74 SEX: F : 1950 ARRIVES VIA: Walk-In INFORMANT: Patient ED PROVIDER(S): Cristofer Goldsmith DO CHIEF COMPLAINT: Weakness HPI: Patient is a 74-year-old female who presents to the ER for weakness in combination with nausea, vomiting and diarrhea. Symptoms started over the past 24 hours. She feels very weak and rundown. She denies any dysuria urgency or frequency. She admits to pain in her legs which has been present for over a month. She does have a history of COPD chronically on 2 L nasal cannula per the who presents at bedside. Denies any new cough or congestion. No dysuria, urgency, or frequency. ADDITIONAL HISTORY OBTAINED: Per HPI Chronic Medical/Social Conditions Affecting Care: Per HPI PAST MEDICAL HISTORY:See Below PAST SURGICAL HISTORY:See Below FAMILY HISTORY:See Below SOCIAL HISTORY:See Below HOME MEDICATIONS:See Below ALLERGIES:See Below VITALS:See Below PHYSICAL EXAMINATION: GENERAL: Sitting up in bed, alert, well appearing, well nourished, no distress, non-toxic EYE EXAM: normal conjunctiva. PERRL and EOM's grossly intact. OROPHARYNX: mucous membranes are moist NECK: supple, no nuchal rigidity, no adenopathy, non-tender LUNGS: Clear to auscultation. Normal chest wall mechanics HEART: no murmurs, S1 normal and S2 normal ABDOMEN: abdomen soft, non-tender, normo-active bowel sounds, no masses, no rebound or guarding. BACK: Back is symmetrical on inspection and there is no deformity, no midline tenderness, no CVA tenderness. SKIN: no rashes and no bruising UPPER EXTREMITIES: upper extremities are grossly normal. LOWER EXTREMITIES: No pitting edema. NEURO EXAM: Normal sensorium, cranial nerves II-XII intact, normal speech, no weakness of arms, no weakness of legs. No drift. Finger to nose intact. Gross sensation intact. MEDICAL DECISION MAKING: Patient is a 74-year-old female who presents ER for nausea vomiting and diarrhea found to be hypoxic on 84%. She normally is on room air unless she is sleeping at night which she goes on 2 L per the who provides additional history. IV was established and blood work was obtained. Labs show no significant leukocytosis. No anemia. BMP with mild hypokalemia 3.0. LFTs bilirubin was unremarkable. Lipase normal. CTA of the chest showed no PEs and question infectious versus pulmonary edema. CT abdomen pelvis showed no acute pathology. Patient was given neb treatments and steroids. She was discussed with the hospitalist. Remained on 2 L nasal cannula and was discussed for further evaluation management treatment. Consults/Care Managements Discussions: Per [facility] Triage Nursing notes reviewed. Limited review of prior medical records performed Vital Signs: reviewed and remarkable for HTN and tachy Differential diagnosis: Differential diagnoses includes but is not limited to gastritis, peptic ulcer disease, GERD, gallbladder disease, pancreatitis, small bowel obstruction, appendicitis, diverticulitis, hernia, urinary tract infection, torsion, perforation, trauma, infectious. ER treatment provided: See below Diagnostics interpreted by me include EKG and cardiac monitoring as listed below: -Cardiac Monitoring: An order was placed for continuous cardiac monitoring. The monitor shows a rate of 90 with sinus rhythm. -ECG: Sinus rhythm rate of 91 Normal axis No PVCs Nonspecific ST wave changes in the inferior lateral leads -Laboratory studies:Interpreted by me as stated above in MDM and shown below. Imaging studies: Xrays: As interpreted by me: Portable AP upright 1 view the chest shows no focal infiltrate CTs show: CT of the chest and abdomen pelvis as described above Procedures:none Critical Care: None Past Med/Surg History Problem List (Updated 02/04/25 @ 14:18 by Cristofer Goldsmith DO) Vomiting and diarrhea (Acute) Abdominal pain (Acute) Hypoxic respiratory failure (Acute) Pneumonia (Acute) Acute dehydration (Acute) Adrenal insufficiency (Acute) Weakness (Acute) Osteopenia May-Thurner syndrome H/O deep venous thrombosis Left lower extremity November 04, 2023 Osteopenia Vitamin D deficiency Vitamin B12 deficiency Hypoxia Nail deformity COPD (chronic obstructive pulmonary disease) Fatigue (Acute) Multinodular goiter (Acute) Subserous leiomyoma of uterus (Acute) Nutcracker phenomenon of renal vein (Acute) GERD (gastroesophageal reflux disease) Hoarseness Lesion of vocal cord Hyperlipidemia Tiredness Hemochromatosis Bronchiectasis ICD (implantable cardioverter-defibrillator), single, in situ Polyp of gallbladder Health care maintenance halfway systemic steroid user (Acute) Myalgia Depression Cerebral aneurysm 2006 Nonischemic cardiomyopathy Cardio/EP 07/20/18: "Clinically she is doing , normal left ventricular size and function." Chronic sinusitis (Acute) Essential hypertension (Acute) Abnormal CT scan, chest Chronic dyspnea Migraine Multiple pulmonary nodules determined by computed tomography of lung Medical History (Updated 02/04/25 @ 14:18 by Cristofer Goldsmith DO) Adrenal insufficiency Vomiting and diarrhea Adrenal insufficiency Leg pain, bilateral Hordeolum of left eye Forgetfulness Tremor Acute DVT (deep venous thrombosis) Elevated troponin Leukocytosis Acute leg pain COVID JACOB (dyspnea on exertion) Serum calcium elevated Wound of right upper extremity Joint pain Headache Rib fracture Facial dermatitis Rash Vocal cord nodule "LUMP ON VOCAL CORD" - REPORTED REASON FOR UPCOMING SURGERY BY PT History of ischemic colitis Thyroid cyst SOBOE (shortness of breath on exertion) Ovarian cyst, bilateral Ovarian cyst Lung nodule NOT MENTIONED BY PT DURING PAT CALL Lesion of vocal fold Hoarseness of voice PT DENIES TROUBLE SWALLOWING Cough 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 Had ICD inserted in 06/2009, but EF has recovered to ~50% per patient and as of 2017. COPD (chronic obstructive pulmonary disease) 60 pack-year smoker; quit ~1999; nebulizers daily Surgical History History of biopsy THYROID History of cerebral aneurysm repair "coil" 2006 Status post excision of vocal cord nodule had ulceration on vocal cords- biopsy done- benign History of anesthesia reaction with Versed during brochoscopy--confusion and decrease in BP Nausea and vomiting after administration of anesthetic agent History of bilateral tubal ligation History of dilatation and curettage History of carpal tunnel release of both wrists History of esophagogastroduodenoscopy (EGD) History of colonoscopy 2 polyps removed History of appendectomy History of tooth extraction wisdom teeth History of tonsillectomy S/P thyroid biopsy benign History of endoscopic sinus surgery History of bilateral cataract extraction History of cardiac cath x1--[address] [facility]/2011 @ [facility] [place] History of bronchoscopy x6 S/P coil embolization of cerebral [place] [facility] [place] ICD (internal cardiac defibrillator) procedure 2007 Family History Brother Cardiomyopathy Sister Cardiomyopathy Bipolar disorder Grandfather (Maternal) Family hx of colon cancer Mother Kidney disease Bipolar disorder Father Prostate cancer Aunt Myocardial infarction Aunt Breast cancer Unknown Allergies FHx: deafness or hearing loss Cardiac disorder Sinusitis Other No family history of bleeding disorder Social History Smoking Status: Former smoker Tobacco Type: Cigarettes Age Started Using Tobacco: 14; Age Quit Using Tobacco: 48; packs per day: 2; Second Hand Exposure: No; Do You Dip or Chew Tobacco: No; Hx Alcohol Use: Yes Alcohol type: beer Hx Substance Use: No Preferred Language: Portuguese Communication Ability: Effective Visual Impairment: No Limitations Hearing Ability: Normal [employer] Former Required: No Beliefs That Will Affect Care: None marital status: Current Living Situation: Spouse current occupational status: retired Feels Safe at Home: Yes Childhood Exposure to Second-Hand Smoke: Yes Dental Care, Regularly: Yes Physical Activity Frequency: Daily Seatbelt Use: always Sunscreen Use: Yes Assistive Devices: Glasses and Oxygen - at Night Allergies Allergies Allergy/AdvReac Type Severity Reaction Status Date / Time Gadolinium-Containing Allergy Severe WENT INTO Verified 02/04/25 12:27 Contrast Medi SHOCK moxifloxacin [From Avelox] Allergy "didn't Verified 02/04/25 12:27 feel well" midazolam AdvReac Intermediate CONFUSION Verified 02/04/25 12:27 AND DECREASED BP Home Meds Home Medications Medication Instructions Recorded Confirmed ascorbic acid (vitamin C) 500 mg 500 mg PO HS 09/05/21 02/04/25 capsule chlorpheniramine maleate 4 mg 4 mg PO DAILY Runny Nose 04/10/23 02/04/25 tablet (ChlorTabs) carvedilol 3.125 mg tablet (Coreg) 3.125 mg PO QAM 11/04/23 02/04/25 carvedilol 6.25 mg tablet 6.25 mg PO QAM 11/04/23 02/04/25 metronidazole 0.75 % topical cream 1 applic topical BID PRN Flare 04/09/24 02/04/25 carvedilol 12.5 mg tablet 12.5 mg PO HS 05/10/24 02/04/25 dabigatran etexilate 150 mg 150 mg PO BID 09/07/24 02/04/25 capsule (Pradaxa) Saccharomyces boulardii 250 mg 250 mg PO DAILY 01/12/25 02/04/25 capsule (Daily Probiotic (S. boulardii)) calcium carbonate (Calcium 500) 600 mg PO QAM 01/12/25 02/04/25 mgjtqxlc-vvc-orxvo acid 0.4 1 tab PO DAILY 01/12/25 02/04/25 mg-lycopene 300 mcg-lutein 250 mcg tablet (Complete Multivitamin Adult 50 Plus) nicotine (polacrilex) 4 mg gum 4 mg buccal Q2H 01/12/25 02/04/25 (Nicorette) sodium chloride 7 % for 1 inh inhalation BID PRN Shortness 01/12/25 02/04/25 nebulization Of Breath Or Wheezing vitamin B complex 1 cap PO QAM 01/12/25 02/04/25 famotidine 20 mg tablet 20 mg PO DAILY 01/17/25 02/04/25 lisinopril 20 mg tablet 20 mg PO BID 02/04/25 02/04/25 prednisone 1 mg tablet 0 mg PO QAM 02/04/25 02/04/25 prednisone 2.5 mg tablet 0 mg PO QAM 02/04/25 02/04/25 prednisone 5 mg tablet 15 mg PO QAM 02/04/25 02/04/25 Previous Rx's Medication Instructions Recorded Oxygen Home #1 L 01/13/23 bupropion HCl 300 mg 24 hr tablet, 300 mg PO QAM #90 tabs 05/10/24 extended release syringe with needle 3 mL 23 x 1" #50 ea 07/21/24 (BD Eclipse Luer-Adam) azithromycin 250 mg tablet 250 mg PO 3XWK #36 tabs 07/26/24 ipratropium bromide 0.02 % 0.5 mg (2.5 mL) inhalation BID 10/12/24 solution for inhalation #450 mL simvastatin 20 mg tablet 20 mg PO HS #90 tabs 10/20/24 mometasone 220 mcg/actuation(120 2 inh inhalation BID #3 Inhalers 11/30/24 doses)breath activated powder inhaler (Asmanex Twisthaler) arformoterol 15 mcg/2 mL solution 2 ml inhalation BID #360 mL 01/12/25 for nebulization (Brovana) ipratropium 0.5 mg-albuterol 3 mg 3 ml inhalation Q6H PRN wheezing 01/12/25 (2.5 mg base)/3 mL nebulization #180 mL soln ipratropium 20 mcg-albuterol 100 1 puff inhalation Q6H #4 grams 01/12/25 mcg/actuation mist for inhalation (Combivent Respimat) ondansetron HCl 4 mg tablet 4 mg PO Q8H PRN nausea and 01/17/25 vomiting #30 tabs dexamethasone sodium phosphate 4 4 mg IM ONCE PRN adrenal crisis #3 01/18/25 mg/mL injection solution vials venlafaxine 150 mg 150 mg PO QAM #90 caps 01/24/25 capsule,extended release 24 hr Results & Data (ED) Vital Signs Vital Signs - 24 hr 02/04/25 09:56 02/04/25 10:19 02/04/25 10:21 Temperature 36.7 C Temperature Source Oral Pulse Rate 106 H 93 H 93 H Pulse Rate from SpO2 Sensor 93 H Respiratory Rate 24 Blood Pressure 147/85 H Blood Pressure Mean 105 Pulse Oximetry 84 L 92 Oxygen Delivery Method Room Air Oxygen Flow Rate Sepsis Recent Fever Within 48 Hours No Sepsis New/Unexplained Change in Mental Status N/A Sepsis Action Taken by Nursing Physician Notified 02/04/25 10:30 02/04/25 10:33 02/04/25 10:33 Temperature Temperature Source Pulse Rate 93 H 91 H Pulse Rate from SpO2 Sensor 92 H 91 H Respiratory Rate Blood Pressure 135/86 Blood Pressure Mean 114 Pulse Oximetry 92 91 Oxygen Delivery Method Oxygen Flow Rate Sepsis Recent Fever Within 48 Hours Sepsis New/Unexplained Change in Mental Status Sepsis Action Taken by Nursing 02/04/25 10:45 02/04/25 10:51 02/04/25 11:00 Temperature Temperature Source Pulse Rate 93 H 92 H Pulse Rate from SpO2 Sensor 93 H 92 H Respiratory Rate 21 Blood Pressure 148/77 H Blood Pressure Mean 106 Pulse Oximetry 90 91 Oxygen Delivery Method Oxygen Flow Rate Sepsis Recent Fever Within 48 Hours Sepsis New/Unexplained Change in Mental Status Sepsis Action Taken by Nursing 02/04/25 11:00 02/04/25 11:03 02/04/25 11:16 Temperature Temperature Source Pulse Rate 91 H Pulse Rate from SpO2 Sensor 92 H Respiratory Rate 23 Blood Pressure 148/77 H Blood Pressure Mean 106 Pulse Oximetry 94 91 Oxygen Delivery Method Nasal Cannula Oxygen Flow Rate 2 Sepsis Recent Fever Within 48 Hours Sepsis New/Unexplained Change in Mental Status Sepsis Action Taken by Nursing 02/04/25 11:16 02/04/25 11:42 02/04/25 11:57 Temperature Temperature Source Pulse Rate 94 H 92 H Pulse Rate from SpO2 Sensor 94 H 93 H Respiratory Rate 24 Blood Pressure Blood Pressure Mean Pulse Oximetry 91 93 94 Oxygen Delivery Method Nasal Cannula Oxygen Flow Rate Sepsis Recent Fever Within 48 Hours Sepsis New/Unexplained Change in Mental Status Sepsis Action Taken by Nursing 02/04/25 12:00 02/04/25 12:00 02/04/25 12:00 Temperature Temperature Source Pulse Rate 94 H Pulse Rate from SpO2 Sensor 95 H Respiratory Rate 24 Blood Pressure 155/82 H 155/82 H Blood Pressure Mean 85 85 Pulse Oximetry Oxygen Delivery Method Oxygen Flow Rate Sepsis Recent Fever Within 48 Hours Sepsis New/Unexplained Change in Mental Status Sepsis Action Taken by Nursing 02/04/25 12:15 02/04/25 12:21 02/04/25 12:27 Temperature Temperature Source Pulse Rate 92 H 92 H 92 H Pulse Rate from SpO2 Sensor 92 H 92 H 92 H Respiratory Rate Blood Pressure Blood Pressure Mean Pulse Oximetry 92 93 92 Oxygen Delivery Method Oxygen Flow Rate Sepsis Recent Fever Within 48 Hours Sepsis New/Unexplained Change in Mental Status Sepsis Action Taken by Nursing 02/04/25 12:30 02/04/25 12:30 02/04/25 13:00 Temperature Temperature Source Pulse Rate 94 H Pulse Rate from SpO2 Sensor 95 H Respiratory Rate Blood Pressure 154/82 H 154/82 H Blood Pressure Mean 111 111 Pulse Oximetry 100 Oxygen Delivery Method Oxygen Flow Rate Sepsis Recent Fever Within 48 Hours Sepsis New/Unexplained Change in Mental Status Sepsis Action Taken by Nursing 02/04/25 13:00 02/04/25 13:27 02/04/25 13:30 Temperature Temperature Source Pulse Rate 94 H Pulse Rate from SpO2 Sensor 94 H Respiratory Rate 24 Blood Pressure 154/86 H 160/92 H Blood Pressure Mean 104 107 Pulse Oximetry 92 Oxygen Delivery Method Oxygen Flow Rate Sepsis Recent Fever Within 48 Hours Sepsis New/Unexplained Change in Mental Status Sepsis Action Taken by Nursing 02/04/25 13:33 02/04/25 13:42 02/04/25 13:54 Temperature Temperature Source Pulse Rate 97 H 92 H 91 H Pulse Rate from SpO2 Sensor 98 H 92 H 92 H Respiratory Rate 23 23 18 Blood Pressure Blood Pressure Mean Pulse Oximetry 92 91 93 Oxygen Delivery Method Oxygen Flow Rate Sepsis Recent Fever Within 48 Hours Sepsis New/Unexplained Change in Mental Status Sepsis Action Taken by Nursing 02/04/25 14:01 Temperature Temperature Source Pulse Rate 90 Pulse Rate from SpO2 Sensor Respiratory Rate Blood Pressure Blood Pressure Mean Pulse Oximetry Oxygen Delivery Method Oxygen Flow Rate Sepsis Recent Fever Within 48 Hours Sepsis New/Unexplained Change in Mental Status Sepsis Action Taken by Nursing Laboratory Data 02/04/25 10:32 02/04/25 10:32 Lab Results 02/04/25 02/04/25 Range/Units 10:32 13:07 WBC 10.31 (4.8-10.8) K/ul RBC 3.74 L (4.20-5.40) M/uL Hgb 12.8 (12.0-16.0) g/dl Hct 37.5 (37.0-47.0) % MCV 100.3 H (80.0-100.0) fL MCH 34.2 H (25.0-34.0) pg MCHC 34.1 (32.0-36.0) g/dL RDW Std Deviation 47.5 H (36.4-46.3) fL RDW Coeff of Isabela 13.0 (11.5-14.5) % Plt Count 284 (130-400) K/uL MPV 9.3 L (9.4-12.4) fL Immature Gran % (Auto) 4.2 % Neut % (Auto) 75.8 % Lymph % (Auto) 5.0 % [place] % (Auto) 9.0 % Eos % (Auto) 5.4 % Baso % (Auto) 0.6 % Neut # (Auto) 7.81 H (1.40-6.50) K/uL Lymph # (Auto) 0.52 L (1.20-3.40) K/uL [place] # (Auto) 0.93 H (0.11-0.59) K/uL Eos # (Auto) 0.56 H (0.00-0.50) K/uL Baso # (Auto) 0.06 (0.00-0.20) K/uL Immature Gran # (Auto) 0.43 H (0.01-0.20) K/uL Sodium 141 (136-145) mmol/L Potassium 3.0 L (3.5-5.1) mmol/L Chloride 105 (98-107) mmol/L Carbon Dioxide 27 (21-32) mmol/L Anion Gap 9 (3-11) BUN 9 (6-23) mg/dl Creatinine 0.70 (0.6-1.2) mg/dl Est Cr Clr Drug Dosing Not Reportable eGFR 89.58 BUN/Creatinine Ratio 12.9 (10-20) Glucose 99 (70-99(Fasting)) mg/dl Calcium 9.8 (8.6-10.3) mg/dl Total Bilirubin 0.5 (0.2-1.0) mg/dl AST 27 (13-39) U/L ALT 19 (7-52) U/L Alkaline Phosphatase 51 (34-104) U/L B-Natriuretic Peptide 57 (0-100) pg/ml Total Protein 6.3 (6.0-8.3) gm/dl Albumin 3.6 (3.4-5.0) gm/dl Globulin 2.7 (2.5-4.0) gm/dl Albumin/Globulin Ratio 1.3 (0.9-2) Lipase 20 (11-82) U/L Administered Medications Discontinued Medications Acetaminophen (Acetaminophen 325 Mg Tab) 650 mg PO NOW STA Stop: 02/04/25 13:19 Last Admin: 02/04/25 13:30 Dose: 650 mg Documented By: FELIX Albuterol (Albut/Ipratrop 3mg/0.5mg Neb 3 Ml Vial) 9 ml NEB ONE ONE; Protocol Stop: 02/04/25 12:29 Last Admin: 02/04/25 12:39 Dose: 9 ml Documented By: BERT Sodium Chloride (Nss) 1,000 mls @ 999 mls/hr IV .Q1H1M ONE Stop: 02/04/25 11:08 Last Infusion: 02/04/25 11:17 Dose: Infused Documented By: Admin: 02/04/25 10:30 Dose: 999 mls/hr Documented By: BERT Ioversol (Optiray 320 125ml) 118 ml IV ONCE ONE Stop: 02/04/25 11:36 Last Admin: 02/04/25 11:36 Dose: 118 ml Documented By: DIVYA Methylprednisolone (Methylprednisolone 125 Mg/2 Ml Vial) 40 mg IV NOW STA Stop: 02/04/25 12:29 Last Admin: 02/04/25 12:39 Dose: 40 mg Documented By: BERT Ondansetron HCl (Ondansetron Inj 2 Mg/Ml 2 Ml Vial) 4 mg IV NOW STA Stop: 02/04/25 10:09 Last Admin: 02/04/25 10:30 Dose: 4 mg Documented By: BERT Potassium Chloride (Potassium Chloride Crtab 20 Meq Tabcr) 40 meq PO NOW STA Stop: 02/04/25 12:18 Last Admin: 02/04/25 12:39 Dose: 40 meq Documented By: BERT Imaging Data Radiologist's Impression: Abdomen/Pelvis CT 02/04/25 10:[address] WITH IV CONTRAST HISTORY: Acute generalized abdominal pain with nausea, vomiting and diarrhea abd pain n/v/d TECHNIQUE: Multiaxial CT images of the abdomen and pelvis were performed following the IV administration of 118 cc of Optiray, A dose lowering technique was utilized adhering to the principles of ALARA. COMPARISON STUDY: CT chest of same day, CT abdomen and pelvis 11/10/2023 FINDINGS: Partially imaged pacer lead. CTA of the chest dictated separately. Emphysema with interlobular septal thickening and mild bibasilar atelectasis. No pneumatosis or pneumoperitoneum. Unremarkable spleen, pancreas and adrenal glands. Unchanged subcentimeter calcification of the pancreatic head. Gallbladder is within normal limits. Subcentimeter probable cyst of the inferior right hepatic lobe. Patent portal vein. No hydronephrosis. Subcentimeter calcifications of the bilateral kidneys measuring up to 4 mm. No ureteral calculi or hydronephrosis. Cysts of the kidneys measuring up to 3.2 cm cyst in the superior pole. There is an exophytic cyst of the inferior pole with layering debris measuring up to approximately 6 cm, similar to prior. Distended urinary bladder. Small cystic foci within the ovaries are again noted measuring up to 1.5 cm on the left. Probable pedunculated uterine fibroid measuring 2.8 cm. Atherosclerosis of the aorta and branch vessels. No lymphadenopathy. Varicosities noted within the mons pubis. Periesophageal varicosities. Mild distal esophageal wall thickening. No bowel obstruction or bowel wall thickening. Colonic diverticulosis. Moderate colonic fecal retention. The appendix is not visualized. Degenerative changes of the spine, pelvis and hips. Minimal lumbar levoscoliosis. Chronic L1 wedge deformity with 3 mm retropulsion. IMPRESSION: 1. No acute intra-abdominal or intrapelvic abnormality. 2. No bowel obstruction or bowel wall thickening. 3. Nonobstructing bilateral renal calculi. No hydronephrosis. 4. Colonic diverticulosis. 5. Incidental findings as above. ACT 112: Negative or not required by law. The above report was generated using voice recognition software. It may contain grammatical, syntax or spelling errors. Electronically signed by: Darron Esteban M.D. 02/04/2025 12:08 PM Chest X-Ray 02/04/25 10:08 XR chest 1V portable CLINICAL HISTORY: Cough. COMPARISON STUDY: Chest radiograph January 09, 2025. Chest CT January 28, 2025. FINDINGS: Left subclavian pacer/AICD remains in place. Cardiomediastinal silhouette is stable. There is no pneumothorax or pleural effusion. Underlying emphysema is present. Right upper lung densities are unchanged and represent scarring. There is no consolidation to suggest pneumonia. IMPRESSION: No acute cardiopulmonary findings. No change in appearance of the chest. ACT 112: Negative or not required by law. Electronically signed by: Calderon Howe M.D. 02/04/2025 10:30 AM Chest CTA 02/04/25 11:14 CT ANGIOGRAM OF THE CHEST CLINICAL HISTORY: Hypoxia. Evaluate for pulmonary embolus. COMPARISON STUDY: Chest CT January 28, 2025. Chest radiograph performed earlier today. TECHNIQUE: Following the IV administration of 118 cc of Optiray 320, CT angiogram of the chest was performed from the upper abdomen to the thoracic inlet utilizing the pulmonary embolus protocol. Images are reviewed in the axial, sagittal, and coronal planes. 3-D MIPS images are created and assessed. IV contrast was administered without complication. A dose lowering technique was utilized adhering to the principles of ALARA. CT DOSE: 828.15 mGy.cm FINDINGS: A left subclavian pacer/AICD is in place. No pulmonary emboli are identified. There is no thoracic aortic dissection. No pathologically enlarged axillary, mediastinal or hilar lymph nodes are present. Heart is at the upper limits of normal for size. No pericardial effusion. There is no pneumothorax or pleural effusion. Severe emphysema is again noted. The central airways are patent. Linear upper lobe densities are unchanged and favor scarring. Mild interlobular septal thickening is present. A few small nodular opacities measuring up to 6 mm within the left upper lobe have developed since recent CT. Abdomen and pelvis CT will be reported separately. IMPRESSION: 1. No pulmonary emboli identified. 2. Interlobular septal thickening suggestive of mild interstitial pulmonary edema. 3. Severe emphysema. 4. A few nodular opacities within the left upper lobe measuring up to 6 mm which are likely benign. These may be related to pulmonary edema or a mild infectious or inflammatory process such as bronchiolitis. ACT 112: Negative or not required by law. Electronically signed by: Calderon Howe M.D. 02/04/2025 11:52 AM Discharge Plan Visit Data Chief Complaint: Weakness Stated Complaint: VERY WEAK,POOR PULSE,VOMITING ED Provider: Cristofer Goldsmith Discharge Problem: Hypoxic respiratory failure, Abdominal pain, Vomiting and diarrhea Condition: Fair Forms Stand Alone Forms: [facility] Prescriptions Prescriptions: No Action bupropion HCl 300 mg tablet extended release 24 hr 300 mg PO QAM Qty: 90 3RF (DME) BD Eclipse Luer-Adam 3 mL 23 x 1" syringe See Rx Instructions .ROUTE .MEDSUPPLY Qty: 50 0RF Rx Instructions: Use to inject solu medrol as needed azithromycin 250 mg tablet 250 mg PO 3XWK Qty: 36 3RF Hold Instructions: Resume on 01/17/25. resume once other antibiotics are completed Rx Instructions: Friday/Friday/Friday ipratropium bromide 0.02 % solution 0.5 mg inhalation BID Qty: 450 3RF Rx Instructions: USE 1 VIAL TWICE DAILY VIA NEBULIZER simvastatin 20 mg tablet 20 mg PO HS Qty: 90 3RF Asmanex Twisthaler 220 mcg/ actuation (120) aerosol powdr breath activated 2 inh inhalation BID Qty: 3 2RF dexamethasone sodium phosphate 4 mg/mL solution 4 mg IM ONCE PRN (Reason: adrenal crisis) Qty: 3 0RF Rx Instructions: use 4 mg once for emergency venlafaxine 150 mg capsule,extended release 24hr 150 mg PO QAM Qty: 90 1RF ascorbic acid (vitamin C) 500 mg capsule 500 mg PO HS Rx Instructions: Unable to verify OTC meds with patient/family at this date/time. chlorpheniramine maleate [ChlorTabs] 4 mg tablet 4 mg PO DAILY Patient Comments: takes 1 every morning Rx Instructions: do not exceed 2 doses per 24 hrs dabigatran etexilate [Pradaxa] 150 mg capsule 150 mg PO BID (DME) Oxygen Home Liters Per Minute See Rx Instructions .ROUTE .MEDSUPPLY Qty: 1 0RF Rx Instructions: Home oxygen concentrator with portability. 2 L via nasal cannula. Length of need 99 years. carvedilol 12.5 mg tablet 12.5 mg PO HS Rx Instructions: takes in evening metronidazole 0.75 % cream 1 applic topical BID PRN (Reason: Flare) famotidine 20 mg tablet 20 mg PO DAILY ondansetron HCl 4 mg tablet 4 mg PO Q8H PRN (Reason: nausea and vomiting) Qty: 30 0RF arformoterol [Brovana] 15 mcg/2 mL solution for nebulization 2 ml inhalation BID Qty: 360 2RF Rx Instructions: Nebulized med calcium carbonate [Calcium 500] 500 mg calcium (1,250 mg) tablet,chewable 600 mg PO QAM Combivent Respimat 20-100 mcg/actuation mist 1 puff inhalation Q6H Qty: 4 2RF Rx Instructions: REPORTED BY SPOUSE - nicotine (polacrilex) [Nicorette] 4 mg gum 4 mg buccal Q2H Saccharomyces boulardii [Daily Probiotic (S. boulardii)] 250 mg capsule 250 mg PO DAILY vitamin B complex Capsule 1 cap PO QAM Complete MV Adult 50 Plus 0.4 mg-300 mcg- 250 mcg tablet 1 tab PO DAILY sodium chloride 7 % solution for nebulization 1 inh inhalation BID PRN (Reason: Shortness Of Breath Or Wheezing) Rx Instructions: EREPORTED BY SPOUSE. ONLY NEEDED ipratropium-albuterol 0.5 mg-3 mg(2.5 mg base)/3 mL solution for nebulization 3 ml inhalation Q6H PRN (Reason: wheezing) Qty: 180 3RF carvedilol 6.25 mg tablet 6.25 mg PO QAM Rx Instructions: Take 6.25mg w/ 3.125mg to equal 9.375mg by mouth every morning carvedilol [Coreg] 3.125 mg tablet 3.125 mg PO QAM Rx Instructions: Take 3.125mg w/ 6.25mg to equal 9.375mg by mouth every morning lisinopril 20 mg tablet 20 mg PO BID prednisone 5 mg tablet 15 mg PO QAM Patient Comments: Pt is currently taking 15mg by mouth every morning as directed during times of stress per Spouse. Will move back to taking 5mg w/ 1mg w/ 2.5mg tablet to equal 8.5mg by mouth every morning once high stress is down. - 02/04/25 Rx Instructions: Pt is currently taking 15mg by mouth every morning as directed during times of stress per Spouse. Will move back to taking 5mg w/ 1mg w/ 2.5mg tablet to equal 8.5mg by mouth every morning once high stress is down. - 02/04/25 prednisone 1 mg tablet 0 mg PO QAM Patient Comments: Pt is currently taking 15mg by mouth every morning as directed during times of stress per Spouse. Will move back to taking 5mg w/ 1mg w/ 2.5mg tablet to equal 8.5mg by mouth every morning once high stress is down. - 02/04/25 Rx Instructions: Pt is currently taking 15mg by mouth every morning as directed during times of stress per Spouse. Will move back to taking 5mg w/ 1mg w/ 2.5mg tablet to equal 8.5mg by mouth every morning once high stress is down. - 02/04/25 prednisone 2.5 mg tablet 0 mg PO QAM Patient Comments: Pt is currently taking 15mg by mouth every morning as directed during times of stress per Spouse. Will move back to taking 5mg w/ 1mg w/ 2.5mg tablet to equal 8.5mg by mouth every morning once high stress is down. - 02/04/25 Rx Instructions: Pt is currently taking 15mg by mouth every morning as directed during times of stress per Spouse. Will move back to taking 5mg w/ 1mg w/ 2.5mg tablet to equal 8.5mg by mouth every morning once high stress is down. - 02/04/25 Referrals Referrals: Nurys Blanchard MD [Primary Care Provider] - Discharge Problem: Hypoxic respiratory failure Qualifiers: Chronicity: unspecified Qualified Code(s): J96.91 - Respiratory failure, unspecified with hypoxia Abdominal pain Qualifiers: Abdominal location: unspecified location Qualified Code(s): R10.9 - Unspecified abdominal pain
[2025-02-04] MEDS: ONDANSETRON INJ 2 MG/ML 2 ML VIAL IV STA (10:30)
[2025-02-04] MEDS: SODIUM CHLORIDE 0.9% 1,000 ML IV ONE (10:30)
--- NOTE | 2025-02-04 10:31 | XRay Report ---
XR chest 1V portable CLINICAL HISTORY: Cough. COMPARISON STUDY: Chest radiograph January 09, 2025. Chest CT January 28, 2025. FINDINGS: Left subclavian pacer/AICD remains in place. Cardiomediastinal silhouette is stable. There is no pneumothorax or pleural effusion. Underlying emphysema is present. Right upper lung densities a re unchanged and represent scarring. There is no consolidation to suggest pneumonia. IMPRESSION: No acute cardiopulmonary findings. No change in appearance of the chest. ACT 112: Negative or not required by law. Electronically signed by: Calderon Howe M.D. 02/04/2025 10:30 AM
[2025-02-04 10:47] LABS: Hematocrit (blood only) 37.5 % (37.0-47.0); Hemoglobin 12.8 g/dl (12.0-16.0); Immature Granulocytes # (auto) 0.43 K/uL (0.01-0.20); Immature Granulocytes % (auto) 4.2 %; Mean Corpuscular Hemoglobin 34.2 pg (25.0-34.0); Mean Corpuscular Volume 100.3 fL (80.0-100.0); Platelet Count 284 K/uL (130-400); RDW Standard Deviation 47.5 fL (36.4-46.3); Red Blood Count 3.74 M/uL (4.20-5.40); White Blood Count 10.31 K/ul (4.8-10.8)
[2025-02-04 11:13] LABS: Alanine Aminotransferase 19 U/L (7-52); Albumin Globulin Ratio 1.3 (0.9-2); Alkaline Phosphatase 51 U/L (34-104); Anion Gap 9 (3-11); Bilirubin,Total 0.5 mg/dl (0.2-1.0); Blood Urea Nitrogen 9 mg/dl (6-23); Calcium 9.8 mg/dl (8.6-10.3); Carbon Dioxide 27 mmol/L (21-32); Chloride 105 mmol/L (98-107); Globulin 2.7 gm/dl (2.5-4.0); Glucose 99 mg/dl (70-99(Fasting)); Lipase 20 U/L (11-82); Potassium 3.0 mmol/L (3.5-5.1); Sodium 141 mmol/L (136-145); Total Protein 6.3 gm/dl (6.0-8.3)
[2025-02-04] MEDS: OPTIRAY 320 125ml IV ONE (11:36)
--- NOTE | 2025-02-04 11:53 | CT Scan Report ---
CT ANGIOGRAM OF THE CHEST CLINICAL HISTORY: Hypoxia. Evaluate for pulmonary embolus. COMPARISON STUDY: Chest CT January 28, 2025. Chest radiograph performed earlier today. TECHNIQUE: Following the IV administration of 118 cc of Optiray 320, CT angiogram of the chest was pe rformed from the upper abdomen to the thoracic inlet utilizing the pulmonary embolus protocol. Images are reviewed in the axial, sagittal, and coronal planes. 3-D MIPS images are created and assessed. I V contrast was administered without complication. A dose lowering technique was utilized adhering to the principles of ALARA. CT DOSE: 828.15 mGy.cm FINDINGS: A left subclavian pacer/AICD is in place. No pulmonary emboli are identified. There is no t horacic aortic dissection. No pathologically enlarged axillary, mediastinal or hilar lymph nodes are present. Heart is at the upper limits of normal for size. No pericardial effusion. There is no pneumo thorax or pleural effusion. Severe emphysema is again noted. The central airways are patent. Linear u pper lobe densities are unchanged and favor scarring. Mild interlobular septal thickening is present. A few small nodular opacities measuring up to 6 mm within the left upper lobe have developed since r ecent CT. Abdomen and pelvis CT will be reported separately. IMPRESSION: 1. No pulmonary emboli identified. 2. Interlobular septal thickening suggestive of mild interstitial pulmonary edema. 3. Severe emphysema. 4. A few nodular opacities within the left upper lobe measuring up to 6 mm which are likely benign. T hese may be related to pulmonary edema or a mild infectious or inflammatory process such as bronchiol itis. ACT 112: Negative or not required by law. Electronically signed by: Calderon Howe M.D. 02/04/2025 11:52 AM
--- NOTE | 2025-02-04 12:10 | CT Scan Report ---
ABDOMEN AND PELVIS CT WITH IV CONTRAST HISTORY: Acute generalized abdominal pain with nausea, vomiting and diarrhea abd pain n/v/d TECHNIQUE: Multiaxial CT images of the abdomen and pelvis were performed following the IV administrat ion of 118 cc of Optiray, A dose lowering technique was utilized adhering to the principles of ALARA . COMPARISON STUDY: CT chest of same day, CT abdomen and pelvis 11/10/2023 FINDINGS: Partially imaged pacer lead. CTA of the chest dictated separately. Emphysema with interlobu lar septal thickening and mild bibasilar atelectasis. No pneumatosis or pneumoperitoneum. Unremarkabl e spleen, pancreas and adrenal glands. Unchanged subcentimeter calcification of the pancreatic head. Gallbladder is within normal limits. Subcentimeter probable cyst of the inferior right hepatic lobe. Patent portal vein. No hydronephrosis. Subcentimeter calcifications of the bilateral kidneys measuring up to 4 mm. No ure teral calculi or hydronephrosis. Cysts of the kidneys measuring up to 3.2 cm cyst in the superior vik e. There is an exophytic cyst of the inferior pole with layering debris measuring up to approximately 6 cm, similar to prior. Distended urinary bladder. Small cystic foci within the ovaries are again no bailey measuring up to 1.5 cm on the left. Probable pedunculated uterine fibroid measuring 2.8 cm. Ather osclerosis of the aorta and branch vessels. No lymphadenopathy. Varicosities noted within the mons pu bis. Periesophageal varicosities. Mild distal esophageal wall thickening. No bowel obstruction or bowel wa ll thickening. Colonic diverticulosis. Moderate colonic fecal retention. The appendix is not visualiz ed. Degenerative changes of the spine, pelvis and hips. Minimal lumbar levoscoliosis. Chronic L1 wedg e deformity with 3 mm retropulsion. IMPRESSION: 1. No acute intra-abdominal or intrapelvic abnormality. 2. No bowel obstruction or bowel wall thickening. 3. Nonobstructing bilateral renal calculi. No hydronephrosis. 4. Colonic diverticulosis. 5. Incidental findings as above. ACT 112: Negative or not required by law. The above report was generated using voice recognition software. It may contain grammatical, syntax o r spelling errors. Electronically signed by: Darron Esteban M.D. 02/04/2025 12:08 PM
[2025-02-04] MEDS: POTASSIUM CHLORIDE CRTAB 20 MEQ TABCR PO STA (12:39)
[2025-02-04] MEDS: ALBUT/IPRATROP 3MG/0.5MG NEB 3 ML VIAL NEB ONE (12:39)
[2025-02-04] MEDS: ACETAMINOPHEN 325 MG TAB PO STA (13:30)
--- NOTE | 2025-02-04 13:51 | History & Physical Report ---
Date of Service February 04, 2025 Assessment & Plan (1) Vomiting and diarrhea: (2) Hypoxic respiratory failure: (3) Abdominal pain: (4) Pneumonia: (5) Acute dehydration: (6) Weakness: (7) COPD (chronic obstructive pulmonary disease): (8) COPD exacerbation: Plan 74 female history severe COPD on 2 L O2, pneumonia multiple times in the past with recent hospitalization a few weeks weeks [employer] for same, DVT on Pradaxa, brain aneurysm, Nonischemic cardiomyopathy EF 45 Status post AICD, Adrenal insufficiency, osteopenia, may Thurner syndrome, osteopenia vitamin D deficiency B12 deficiency multinodular goiter GERD hyperlipidemia hemochromatosis bronchiectasis Depression hypertension migraines who presents with her with worsening shortness of breath, productive cough, headache and sinus pain, generalized weakness fatigue malaise, nausea vomiting abdominal pain and diarrhea over the past few days. She has been feeling rundown since her discharge for recent pneumonia. COPD exacerbation Steroids taper as tolerated. Bronchodilators. Close outpatient follow-up with night coordinator Questionable HCAP CT with questionable bronchiolitis no clear infiltrates however clinical presentation is concerning for evolving infection and considering recent hospitalization and high risk, will treat empirically with antibiotics initially Pulmonary toilet as needed Empirical IV Zosyn doxycycline Respiratory infectious workup Sinusitis nausea vomiting abdominal pain diarrhea improving suspect Viral etiology Supportive care Hypokalemia Replete as needed Chronic hypoxic respiratory failure O2 sat goal 88-94 History of DVT Continue Pradaxa History cardiomyopathy EF 45 No evidence of decompensation. Monitor Incidental renal/hepatic cysts, paraesophageal varicosities and mild esophageal wall thickening Outpatient follow-up Generalized weakness PT OT GI steroid prophylaxis DVT prophylaxis as above Full code Disposition admission anticipate at least 48 hours hospitalization History of Present Illness Chief Complaint: Shortness of breath Primary Care Provider: Nurys Blanchard MD 74 female history severe COPD on 2 L O2, pneumonia multiple times in the past with recent hospitalization a few weeks weeks [employer] for same, DVT on Pradaxa, brain aneurysm, Nonischemic cardiomyopathy EF 45 Status post AICD, Adrenal insufficiency, osteopenia, may Thurner syndrome, osteopenia vitamin D deficiency B12 deficiency multinodular goiter GERD hyperlipidemia hemochromatosis bronchiectasis Depression hypertension migraines who presents with her with worsening shortness of breath, productive cough, headache and sinus pain, generalized weakness fatigue malaise, nausea vomiting abdominal pain and diarrhea over the past few days. She has been feeling rundown since her discharge for recent pneumonia. Her nausea vomiting and diarrhea have subsided. No fevers chills pleuritic or other chest pain lightheadedness blood in stool symptoms or any other symptoms. at bedside. We discussed everything extensively they are very appreciative. She feels better since arrival breath ing has improved after receiving steroids and nebs. Discussed with ED physician. His impression is COPD exacerbation and generalized weakness. Allergies Allergy/AdvReac Type Severity Reaction Status Date / Time Gadolinium-Containing Allergy Severe WENT INTO Verified 02/04/25 12:27 Contrast Medi SHOCK moxifloxacin [From Avelox] Allergy "didn't Verified 02/04/25 12:27 feel well" midazolam AdvReac Intermediate CONFUSION Verified 02/04/25 12:27 AND DECREASED BP Home Medications Medication Instructions Recorded Confirmed Type ascorbic acid (vitamin C) 500 mg 500 mg PO HS 09/05/21 02/04/25 History capsule Oxygen Home #1 L 01/13/23 01/12/25 Rx chlorpheniramine maleate 4 mg 4 mg PO DAILY Runny Nose 04/10/23 02/04/25 History tablet (ChlorTabs) carvedilol 3.125 mg tablet (Coreg) 3.125 mg PO QAM 11/04/23 02/04/25 History carvedilol 6.25 mg tablet 6.25 mg PO QAM 11/04/23 02/04/25 History metronidazole 0.75 % topical cream 1 applic topical BID PRN Flare 04/09/24 02/04/25 History bupropion HCl 300 mg 24 hr tablet, 300 mg PO QAM #90 tabs 05/10/24 02/04/25 Rx extended release carvedilol 12.5 mg tablet 12.5 mg PO HS 05/10/24 02/04/25 History syringe with needle 3 mL 23 x 1" #50 ea 07/21/24 01/12/25 Rx (BD Eclipse Luer-Adam) azithromycin 250 mg tablet 250 mg PO 3XWK #36 tabs 07/26/24 02/04/25 Rx dabigatran etexilate 150 mg 150 mg PO BID 09/07/24 02/04/25 History capsule (Pradaxa) ipratropium bromide 0.02 % 0.5 mg (2.5 mL) inhalation BID 10/12/24 02/04/25 Rx solution for inhalation #450 mL simvastatin 20 mg tablet 20 mg PO HS #90 tabs 10/20/24 02/04/25 Rx mometasone 220 mcg/actuation(120 2 inh inhalation BID #3 Inhalers 11/30/24 02/04/25 Rx doses)breath activated powder inhaler (Asmanex Twisthaler) Saccharomyces boulardii 250 mg 250 mg PO DAILY 01/12/25 02/04/25 History capsule (Daily Probiotic (S. boulardii)) arformoterol 15 mcg/2 mL solution 2 ml inhalation BID #360 mL 01/12/25 02/04/25 Rx for nebulization (Brovana) calcium carbonate (Calcium 500) 600 mg PO QAM 01/12/25 02/04/25 History ipratropium 0.5 mg-albuterol 3 mg 3 ml inhalation Q6H PRN wheezing 01/12/25 02/04/25 Rx (2.5 mg base)/3 mL nebulization #180 mL soln ipratropium 20 mcg-albuterol 100 1 puff inhalation Q6H #4 grams 01/12/25 02/04/25 Rx mcg/actuation mist for inhalation (Combivent Respimat) pbuoiuhc-hkv-jnjhh acid 0.4 1 tab PO DAILY 01/12/25 02/04/25 History mg-lycopene 300 mcg-lutein 250 mcg tablet (Complete Multivitamin Adult 50 Plus) nicotine (polacrilex) 4 mg gum 4 mg buccal Q2H 01/12/25 02/04/25 History (Nicorette) sodium chloride 7 % for 1 inh inhalation BID PRN Shortness 01/12/25 02/04/25 History nebulization Of Breath Or Wheezing vitamin B complex 1 cap PO QAM 01/12/25 02/04/25 History famotidine 20 mg tablet 20 mg PO DAILY 01/17/25 02/04/25 History ondansetron HCl 4 mg tablet 4 mg PO Q8H PRN nausea and 01/17/25 02/04/25 Rx vomiting #30 tabs dexamethasone sodium phosphate 4 4 mg IM ONCE PRN adrenal crisis #3 01/18/25 02/04/25 Rx mg/mL injection solution vials venlafaxine 150 mg 150 mg PO QAM #90 caps 01/24/25 02/04/25 Rx capsule,extended release 24 hr lisinopril 20 mg tablet 20 mg PO BID 02/04/25 02/04/25 History prednisone 1 mg tablet 0 mg PO QAM 02/04/25 02/04/25 History prednisone 2.5 mg tablet 0 mg PO QAM 02/04/25 02/04/25 History prednisone 5 mg tablet 15 mg PO QAM 02/04/25 02/04/25 History Past Med/Surg History Problem List (Updated 02/04/25 @ 14:35 by Benji Clancy MD) COPD exacerbation Vomiting and diarrhea (Acute) Abdominal pain (Acute) Hypoxic respiratory failure (Acute) Pneumonia (Acute) Acute dehydration (Acute) Adrenal insufficiency (Acute) Weakness (Acute) Osteopenia May-Thurner syndrome H/O deep venous thrombosis Left lower extremity November 04, 2023 Osteopenia Vitamin D deficiency Vitamin B12 deficiency Hypoxia Nail deformity COPD (chronic obstructive pulmonary disease) Fatigue (Acute) Multinodular goiter (Acute) Subserous leiomyoma of uterus (Acute) Nutcracker phenomenon of renal vein (Acute) GERD (gastroesophageal reflux disease) Hoarseness Lesion of vocal cord Hyperlipidemia Tiredness Hemochromatosis Bronchiectasis ICD (implantable cardioverter-defibrillator), single, in situ Polyp of gallbladder 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 (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) Myalgia Depression Cerebral aneurysm 2006 Nonischemic cardiomyopathy Cardio/EP 07/20/18: "Clinically she is doing , normal left ventricular size and function." Chronic sinusitis (Acute) Essential hypertension (Acute) Abnormal CT scan, chest Chronic dyspnea Migraine Multiple pulmonary nodules determined by computed tomography of lung Medical History (Updated 02/04/25 @ 14:35 by Benji Clancy MD) Adrenal insufficiency Vomiting and diarrhea Adrenal insufficiency Leg pain, bilateral Hordeolum of left eye Forgetfulness Tremor Acute DVT (deep venous thrombosis) Elevated troponin Leukocytosis Acute leg pain COVID JACOB (dyspnea on exertion) Serum calcium elevated Wound of right upper extremity Joint pain Headache Rib fracture Facial dermatitis Rash Vocal cord nodule "LUMP ON VOCAL CORD" - REPORTED REASON FOR UPCOMING SURGERY BY PT History of ischemic colitis Thyroid cyst SOBOE (shortness of breath on exertion) Ovarian cyst, bilateral Ovarian cyst Lung nodule NOT MENTIONED BY PT DURING PAT CALL Lesion of vocal fold Hoarseness of voice PT DENIES TROUBLE SWALLOWING Cough 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 Had ICD inserted in 06/2009, but EF has recovered to ~50% per patient and as of 2017. COPD (chronic obstructive pulmonary disease) 60 pack-year smoker; quit ~1999; nebulizers daily Surgical History History of biopsy THYROID History of cerebral aneurysm repair "coil" 2006 Status post excision of vocal cord nodule had ulceration on vocal cords- biopsy done- benign History of anesthesia reaction with Versed during brochoscopy--confusion and decrease in BP Nausea and vomiting after administration of anesthetic agent History of bilateral tubal ligation History of dilatation and curettage History of carpal tunnel release of both wrists History of esophagogastroduodenoscopy (EGD) History of colonoscopy 2 polyps removed History of appendectomy History of tooth extraction wisdom teeth History of tonsillectomy S/P thyroid biopsy benign History of endoscopic sinus surgery History of bilateral cataract extraction History of cardiac cath x1--2009 @ [facility]/2011 [place] [facility] [place] History of bronchoscopy x6 S/P coil embolization of cerebral aneurysm 03/2007 [place] [facility] [place]/P ICD (internal cardiac defibrillator) procedure 2007 Family History Brother Cardiomyopathy Sister Cardiomyopathy Bipolar disorder Grandfather (Maternal) Family hx of colon cancer Mother Kidney disease Bipolar disorder Father Prostate cancer Aunt Myocardial infarction Aunt Breast cancer Unknown Allergies FHx: deafness or hearing loss Cardiac disorder Sinusitis Other No family history of bleeding disorder Social History Smoking Status: Former smoker Tobacco Type: Cigarettes Age Started Using Tobacco: 14; Age Quit Using Tobacco: 48; packs per day: 2; Second Hand Exposure: No; Do You Dip or Chew Tobacco: No; Hx Alcohol Use: Yes Alcohol type: beer Hx Substance Use: No Preferred Language: Bahamian Communication Ability: Effective Visual Impairment: No Limitations Hearing Ability: Normal 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 Required: No Beliefs That Will Affect Care: None marital status: Current Living Situation: Spouse current occupational status: retired Feels Safe at Home: Yes Childhood Exposure to Second-Hand Smoke: Yes Dental Care, Regularly: Yes Physical Activity Frequency: Daily Seatbelt Use: always Sunscreen Use: Yes Assistive Devices: Glasses and Oxygen - at Night Review of Systems Review of Systems: All systems reviewed & are unremarkable except as noted in HPI & below Physical Exam Constitutional: WD/WN, vitals as above Respiratory: Air entry bilaterally coarse Cardiovascular: RRR, no murmur, no edema Gastrointestinal (Abdomen): Nontender nondistended Skin: No rashes or edema Psychiatric: A+Ox3, euthymic affect Results & Data Results & Data Vital Signs (Past 12 Hours) Vital Signs Temp Pulse Resp BP Pulse Ox O2 Del Method O2 Flow Rate 02/04/25 11:16 91 Nasal Cannula 02/04/25 11:16 91 Nasal Cannula 2 02/04/25 11:03 91 H 23 94 02/04/25 11:00 148/77 H 02/04/25 11:00 148/77 H 02/04/25 10:51 92 H 91 02/04/25 10:45 93 H 21 90 02/04/25 10:33 91 H 91 02/04/25 10:33 135/86 02/04/25 10:30 93 H 92 02/04/25 10:21 93 H 92 02/04/25 10:19 93 H 02/04/25 09:56 36.7 C 106 H 24 147/85 H 84 L Room Air Laboratory Results Abnormal Labs 02/04/25 10:32 RBC 3.74 L MCV 100.3 H MCH 34.2 H RDW Std Deviation 47.5 H MPV 9.3 L Neut # (Auto) 7.81 H Lymph # (Auto) 0.52 L Dubois # (Auto) 0.93 H Eos # (Auto) 0.56 H Immature Gran # (Auto) 0.43 H Potassium 3.0 L Diagnostic Findings Abdomen/Pelvis CT 02/04/25 10:[address] WITH IV CONTRAST HISTORY: Acute generalized abdominal pain with nausea, vomiting and diarrhea abd pain n/v/d TECHNIQUE: Multiaxial CT images of the abdomen and pelvis were performed following the IV administration of 118 cc of Optiray, A dose lowering technique was utilized adhering to the principles of ALARA. COMPARISON STUDY: CT chest of same day, CT abdomen and pelvis 11/10/2023 FINDINGS: Partially imaged pacer lead. CTA of the chest dictated separately. Emphysema with interlobular septal thickening and mild bibasilar atelectasis. No pneumatosis or pneumoperitoneum. Unremarkable spleen, pancreas and adrenal glands. Unchanged subcentimeter calcification of the pancreatic head. Gallbladder is within normal limits. Subcentimeter probable cyst of the inferior right hepatic lobe. Patent portal vein. No hydronephrosis. Subcentimeter calcifications of the bilateral kidneys measuring up to 4 mm. No ureteral calculi or hydronephrosis. Cysts of the kidneys measuring up to 3.2 cm cyst in the superior pole. There is an exophytic cyst of the inferior pole with layering debris measuring up to approximately 6 cm, similar to prior. Distended urinary bladder. Small cystic foci within the ovaries are again noted measuring up to 1.5 cm on the left. Probable pedunculated uterine fibroid measuring 2.8 cm. Atherosclerosis of the aorta and branch vessels. No lymphadenopathy. Varicosities noted within the mons pubis. Periesophageal varicosities. Mild distal esophageal wall thickening. No bowel obstruction or bowel wall thickening. Colonic diverticulosis. Moderate colonic fecal retention. The appendix is not visualized. Degenerative changes of the spine, pelvis and hips. Minimal lumbar levoscoliosis. Chronic L1 wedge deformity with 3 mm retropulsion. IMPRESSION: 1. No acute intra-abdominal or intrapelvic abnormality. 2. No bowel obstruction or bowel wall thickening. 3. Nonobstructing bilateral renal calculi. No hydronephrosis. 4. Colonic diverticulosis. 5. Incidental findings as above. ACT 112: Negative or not required by law. The above report was generated using voice recognition software. It may contain grammatical, syntax or spelling errors. Electronically signed by: Darron Esteban M.D. 02/04/2025 12:08 PM Chest X-Ray 02/04/25 10:08 XR chest 1V portable CLINICAL HISTORY: Cough. COMPARISON STUDY: Chest radiograph January 09, 2025. Chest CT January 28, 2025. FINDINGS: Left subclavian pacer/AICD remains in place. Cardiomediastinal silhouette is stable. There is no pneumothorax or pleural effusion. Underlying emphysema is present. Right upper lung densities are unchanged and represent scarring. There is no consolidation to suggest pneumonia. IMPRESSION: No acute cardiopulmonary findings. No change in appearance of the chest. ACT 112: Negative or not required by law. Electronically signed by: Calderon Howe M.D. 02/04/2025 10:30 AM Chest CTA 02/04/25 11:14 CT ANGIOGRAM OF THE CHEST CLINICAL HISTORY: Hypoxia. Evaluate for pulmonary embolus. COMPARISON STUDY: Chest CT January 28, 2025. Chest radiograph performed earlier today. TECHNIQUE: Following the IV administration of 118 cc of Optiray 320, CT angiogram of the chest was performed from the upper abdomen to the thoracic inlet utilizing the pulmonary embolus protocol. Images are reviewed in the axial, sagittal, and coronal planes. 3-D MIPS images are created and assessed. IV contrast was administered without complication. A dose lowering technique was utilized adhering to the principles of ALARA. CT DOSE: 828.15 mGy.cm FINDINGS: A left subclavian pacer/AICD is in place. No pulmonary emboli are identified. There is no thoracic aortic dissection. No pathologically enlarged axillary, mediastinal or hilar lymph nodes are present. Heart is at the upper limits of normal for size. No pericardial effusion. There is no pneumothorax or pleural effusion. Severe emphysema is again noted. The central airways are patent. Linear upper lobe densities are unchanged and favor scarring. Mild interlobular septal thickening is present. A few small nodular opacities measuring up to 6 mm within the left upper lobe have developed since recent CT. Abdomen and pelvis CT will be reported separately. IMPRESSION: 1. No pulmonary emboli identified. 2. Interlobular septal thickening suggestive of mild interstitial pulmonary edema. 3. Severe emphysema. 4. A few nodular opacities within the left upper lobe measuring up to 6 mm which are likely benign. These may be related to pulmonary edema or a mild infectious or inflammatory process such as bronchiolitis. ACT 112: Negative or not required by law. Electronically signed by: Calderon Howe M.D. 02/04/2025 11:52 AM PG Care Time/CCT Total # of Minutes Spent Total Time Spent with Patient: Total time spent is greater than 50% in coordination of care (as documented) at patient's floor/unit and/or counseling patient: Coding Level of Care Code 28027 INT INP/OBS CARE 2/55MIN Diagnoses Vomiting and diarrhea R11.10; R19.7 Hypoxic respiratory failure J96.91 Chronicity: unspecified Abdominal pain R10.9 Abdominal location: unspecified location Pneumonia J18.9 Laterality: left Lung location: lower lobe of lung Pneumonia type: due to unspecified organism Acute dehydration E86.0 Weakness R53.1 COPD (chronic obstructive pulmonary disease) J44.9 COPD exacerbation J44.1 (2) Hypoxic respiratory failure Chronicity: unspecified Qualified Code(s): J96.91 - Respiratory failure, unspecified with hypoxia (3) Abdominal pain Abdominal location: unspecified location Qualified Code(s): R10.9 - Unspecified abdominal pain (4) Pneumonia Laterality: left Lung location: lower lobe of lung Pneumonia type: due to unspecified organism Qualified Code(s): J18.9 - Pneumonia, unspecified organism
[2025-02-04] MEDS ORDERED: ONDANSETRON INJ 2 MG/ML 2 ML VIAL IV PRN ×2 (14:00→15:35)
[2025-02-04] MEDS ORDERED: MAGNESIUM HYDROXIDE SUSP 30 ML UDC PO PRN (14:00)
[2025-02-04] MEDS ORDERED: ALBUTEROL 0.083% NEBU SOLN 3 ML VIAL INH PRN (14:05)
[2025-02-04] MEDS: LACTATED RINGER'S 1,000 ML IV SCH (14:30)
[2025-02-04] MEDS: PIPERACILLIN/TAZOBACTAM 4.5 GM/100 ML BAG IV ONE (14:30)
[2025-02-04 16:12] LABS: Chlamydia pneumoniae PCR Not Detected (NotDetected); Coronavirus 229E PCR Not Detected (NotDetected); Coronavirus CoV-2 (COVID19)PCR Not Detected (NotDetected); Coronavirus HKU1 PCR Not Detected (NotDetected); Coronavirus NL63 PCR Not Detected (NotDetected); Coronavirus OC43PCR Not Detected (NotDetected); Human Metapneumovirus PCR Not Detected (NotDetected); Parainfluenza Virus 1 PCR Not Detected (NotDetected); Parainfluenza Virus 2 PCR Not Detected (NotDetected); Parainfluenza Virus 3 PCR Not Detected (NotDetected); Parainfluenza Virus 4 PCR Not Detected (NotDetected); Respiratory Syncytial VirusPCR Not Detected (NotDetected); Rhinovirus/Enterovirus PCR Not Detected (NotDetected)
[2025-02-04] MEDS ORDERED: IPRATROPIUM BROMIDE/ALBUTEROL respimat INH INH SCH (17:43)
[2025-02-04] MEDS ORDERED: ONDANSETRON 4 MG OD TAB PO PRN (17:43)
[2025-02-04] MEDS ORDERED: ALBUT/IPRATROP 3MG/0.5MG NEB 3 ML VIAL INH PRN ×2 (17:43→20:16)
[2025-02-04] MEDS ORDERED: DEXAMETHASONE SOD INJ 10 MG/ML VIAL IM PRN (17:51)
[2025-02-04] MEDS ORDERED: NICOTINE POLACRILEX 2 MG GUM MT PRN (17:56)
[2025-02-04] MEDS: Patient's HEIGHT &/or WEIGHT Needed STA (18:29)
[2025-02-04 19:26] LABS: Appearance Urine Clear (Clear); Glucose Urine UA Negative (Negative)
[2025-02-04] MEDS: Albuterol HFA 8 GM Inhaler (Combivent Respimat P&T Subs) INH SCH (19:44)
[2025-02-04] MEDS: FORMOTEROL 20 MCG/2 ML VIAL INH SCH (19:44)
[2025-02-04] MEDS: ALBUT/IPRATROP 3MG/0.5MG NEB 3 ML VIAL INH SCH (19:44)
[2025-02-04] MEDS: Ipratropium HFA Inhaler (Combivent Respimat P&T Subs) INH SCH (19:44)
[2025-02-04 19:45] LABS: Hematocrit (blood only) 39.2 % (37.0-47.0); Hemoglobin 13.0 g/dl (12.0-16.0); Mean Corpuscular Hemoglobin 33.3 pg (25.0-34.0); Mean Corpuscular Volume 100.5 fL (80.0-100.0); Platelet Count 269 K/uL (130-400); RDW Standard Deviation 48.7 fL (36.4-46.3); Red Blood Count 3.90 M/uL (4.20-5.40); White Blood Count 7.96 K/ul (4.8-10.8)
[2025-02-04 20:04] LABS: Alanine Aminotransferase 17.0 U/L (7-52); Albumin Globulin Ratio 1.2 (0.9-2); Alkaline Phosphatase 57.0 U/L (34-104); Anion Gap 8.0 (3-11); Bilirubin,Total 0.5 mg/dl (0.2-1.0); Blood Urea Nitrogen 9.0 mg/dl (6-23); Calcium 9.2 mg/dl (8.6-10.3); Carbon Dioxide 25.0 mmol/L (21-32); Chloride 105.0 mmol/L (98-107); Creatinine Clr Calc Pharmacy 54.3 ml/min; Globulin 2.9 gm/dl (2.5-4.0); Glucose 180.0 mg/dl (70-99(Fasting)); Potassium 4.1 mmol/L (3.5-5.1); Sodium 138.0 mmol/L (136-145); Total Protein 6.3 gm/dl (6.0-8.3)
[2025-02-04] MEDS: PIPERACILLIN/TAZOBACTAM 4.5 GM/100 ML BAG IV SCH (20:11)
[2025-02-04] MEDS: ASCORBIC ACID 500 MG TAB PO SCH (20:18)
[2025-02-04] MEDS: DABIGATRAN ETEXILATE 75 MG CAP PO SCH (20:19)
[2025-02-04] MEDS: SIMVASTATIN 20 MG TAB PO SCH (20:22)
[2025-02-04] MEDS: DOXYCYCLINE HYCLATE 100 MG CAP PO SCH (20:23)
[2025-02-04] MEDS ORDERED: IPRATROPIUM BROMIDE NEB SOLN 0.02% 0.5MG/2.5ML VIAL INH SCH (21:00)
[2025-02-04] MEDS ORDERED: Albuterol HFA 8 GM Inhaler (Combivent Respimat P&T Subs) INH SCH (21:00)
[2025-02-04] MEDS ORDERED: Ipratropium HFA Inhaler (Combivent Respimat P&T Subs) INH SCH (21:00)
[2025-02-05 06:05] LABS: Hematocrit (blood only) 36.8 % (37.0-47.0); Hemoglobin 12.2 g/dl (12.0-16.0); Mean Corpuscular Hemoglobin 33.2 pg (25.0-34.0); Mean Corpuscular Volume 100.0 fL (80.0-100.0); Platelet Count 276 K/uL (130-400); RDW Standard Deviation 47.6 fL (36.4-46.3); Red Blood Count 3.68 M/uL (4.20-5.40); White Blood Count 9.25 K/ul (4.8-10.8)
[2025-02-05 06:27] LABS: Alanine Aminotransferase 16.0 U/L (7-52); Albumin Globulin Ratio 1.3 (0.9-2); Alkaline Phosphatase 52.0 U/L (34-104); Anion Gap 7.0 (3-11); Bilirubin,Total 0.5 mg/dl (0.2-1.0); Blood Urea Nitrogen 10.0 mg/dl (6-23); Calcium 9.1 mg/dl (8.6-10.3); Carbon Dioxide 27.0 mmol/L (21-32); Chloride 106.0 mmol/L (98-107); Creatinine Clr Calc Pharmacy 61.9 ml/min; Globulin 2.6 gm/dl (2.5-4.0); Glucose 128.0 mg/dl (70-99(Fasting)); Potassium 4.1 mmol/L (3.5-5.1); Sodium 140.0 mmol/L (136-145); Total Protein 6.0 gm/dl (6.0-8.3)
[2025-02-05] MEDS: IPRATROPIUM BROMIDE NEB SOLN 0.02% 0.5MG/2.5ML VIAL NEB SCH (06:30)
[2025-02-05] MEDS: SACCHAROMYCES BOULARDII 250 MG CAP PO SCH (09:02)
[2025-02-05] MEDS: CALCIUM CARBONATE 1250MG TAB PO SCH (09:02)
[2025-02-05] MEDS: FLUTICASONE FUROATE 100MCG 14 PUFFS/INHALER INH SCH (09:03)
[2025-02-05] MEDS: VENLAFAXINE HCL XR 150 MG CAPXR PO SCH (09:04)
[2025-02-05] MEDS: VITAMIN B COMPLEX TAB PO SCH (09:04)
[2025-02-05] MEDS: CEROVITE ADV FORMULA TAB PO SCH (09:04)
[2025-02-05] MEDS: FAMOTIDINE 20 MG TAB PO SCH (09:09)
[2025-02-05] MEDS: ACETAMINOPHEN 325 MG TAB PO PRN (09:13)
[2025-02-05] MEDS: CHLORPHENIRAMINE MALEATE 4 MG TABLET PO SCH (09:19)
[2025-02-05] MEDS ORDERED: ACETYLCYSTEINE 10% INHAL SOLN 4 ML **DISPENSED BY RESP. INH PRN (10:07)
--- NOTE | 2025-02-05 10:07 | Hospitalist Progress Note ---
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 She has been feeling rundown since her discharge for recent pneumonia. COPD exacerbation Steroids taper as tolerated. Bronchodilators. Close outpatient follow-up with leaf coverer Questionable HCAP CT with questionable bronchiolitis no clear infiltrates however clinical presentation is concerning for evolving infection and considering recent hospitalization and high risk, will treat empirically with antibiotics initially Pulmonary toilet as needed Empirical IV Zosyn doxycycline Respiratory infectious workup NTD Acute on Chronic hypoxic respiratory failure Wean O2 sat goal 88-94 Sinusitis nausea vomiting abdominal pain diarrhea improving suspect Viral etiology Supportive care Hypokalemia Replete as needed History of DVT Continue Pradaxa History cardiomyopathy EF 45 No evidence of decompensation. Monitor Incidental renal/hepatic cysts, paraesophageal varicosities and mild esophageal wall thickening Outpatient follow-up Generalized weakness PT OT GI steroid prophylaxis DVT prophylaxis as above Full code Disposition Anticipate discharge home in 2 to 3 days Possibly with home health Admission and Anticipated Discharge Date Admission Date: February 04, 2025 Subjective States she had a bad night. A lot of coughing and at times desats when she is coughing. States she feels sputum stuck in her chest and is having difficulty expectorating. Discussed extensively with RT yesterday requesting [id number] monitoring for pulmonary toilet measures and discussed again with RN this morning extensively. RN well request RT follows patient closely with their vest Acapella Mucomyst etc. for aggressive pulmonary toilet measures. Also encouraged ambulation activity as tolerated. Will reach out to or drop by at bedside again when able to do so this afternoon RN and I discussed all aspects of patient's care extensively. Discussed sat goal 88-94 She otherwise denies chest pain fevers chills nausea lightheadedness or any other symptoms Review of Systems Review of Systems: All systems reviewed & are unremarkable except as noted in HPI & below Physical Exam Constitutional: WD/WN, vitals as above Respiratory: Air entry bilaterally coarse Cardiovascular: RRR, no murmur, no edema Gastrointestinal (Abdomen): Nontender nondistended Skin: No rashes or edema Psychiatric: A+Ox3, euthymic affect Results & Data Results & Data Vital Signs (Past 12 Hours) Vital Signs Temp Pulse Pulse Resp BP BP Pulse Ox 02/05/25 08:09 36.5 C 84 19 152/77 H 95 02/05/25 08:00 82 02/05/25 07:57 02/05/25 06:30 16 96 02/05/25 03:08 78 L 02/05/25 03:00 36.3 C L 80 18 134/70 78 L 02/04/25 23:30 83 02/04/25 23:00 36.6 C 81 18 139/76 90 02/04/25 22:28 O2 Del Method O2 Flow Rate 02/05/25 08:09 Nasal Cannula 3 02/05/25 08:00 02/05/25 07:57 Nasal Cannula 3 02/05/25 06:30 Nasal Cannula 2 02/05/25 03:08 Nasal Cannula 0 02/05/25 03:00 Nasal Cannula 02/04/25 23:30 02/04/25 23:00 Nasal Cannula 02/04/25 22:28 Nasal Cannula 2 Laboratory Results Abnormal Labs 02/04/25 02/04/25 02/04/25 10:32 19:10 19:30 RBC 3.74 L 3.90 L Hct MCV 100.3 H 100.5 H MCH 34.2 H RDW Std Deviation 47.5 H 48.7 H MPV 9.3 L 9.1 L Neut # (Auto) 7.81 H Lymph # (Auto) 0.52 L O'Brien # (Auto) 0.93 H Eos # (Auto) 0.56 H Immature Gran # (Auto) 0.43 H Potassium 3.0 L Glucose 180 H Urine pH 8.0 H 02/05/25 05:35 RBC 3.68 L Hct 36.8 L MCV MCH RDW Std Deviation 47.6 H MPV 9.3 L Neut # (Auto) Lymph # (Auto) O'Brien # (Auto) Eos # (Auto) Immature Gran # (Auto) Potassium Glucose 128 H Urine pH Diagnostic Findings Abdomen/Pelvis CT 02/04/25 10:[address] WITH IV CONTRAST HISTORY: Acute generalized abdominal pain with nausea, vomiting and diarrhea abd pain n/v/d TECHNIQUE: Multiaxial CT images of the abdomen and pelvis were performed following the IV administration of 118 cc of Optiray, A dose lowering technique was utilized adhering to the principles of ALARA. COMPARISON STUDY: CT chest of same day, CT abdomen and pelvis 11/10/2023 FINDINGS: Partially imaged pacer lead. CTA of the chest dictated separately. Emphysema with interlobular septal thickening and mild bibasilar atelectasis. No pneumatosis or pneumoperitoneum. Unremarkable spleen, pancreas and adrenal glands. Unchanged subcentimeter calcification of the pancreatic head. Gallbladder is within normal limits. Subcentimeter probable cyst of the inferior right hepatic lobe. Patent portal vein. No hydronephrosis. Subcentimeter calcifications of the bilateral kidneys measuring up to 4 mm. No ureteral calculi or hydronephrosis. Cysts of the kidneys measuring up to 3.2 cm cyst in the superior pole. There is an exophytic cyst of the inferior pole with layering debris measuring up to approximately 6 cm, similar to prior. Distended urinary bladder. Small cystic foci within the ovaries are again noted measuring up to 1.5 cm on the left. Probable pedunculated uterine fibroid measuring 2.8 cm. Atherosclerosis of the aorta and branch vessels. No lymphadenopathy. Varicosities noted within the mons pubis. Periesophageal varicosities. Mild distal esophageal wall thickening. No bowel obstruction or bowel wall thickening. Colonic diverticulosis. Moderate colonic fecal retention. The appendix is not visualized. Degenerative changes of the spine, pelvis and hips. Minimal lumbar levoscoliosis. Chronic L1 wedge deformity with 3 mm retropulsion. IMPRESSION: 1. No acute intra-abdominal or intrapelvic abnormality. 2. No bowel obstruction or bowel wall thickening. 3. Nonobstructing bilateral renal calculi. No hydronephrosis. 4. Colonic diverticulosis. 5. Incidental findings as above. ACT 112: Negative or not required by law. The above report was generated using voice recognition software. It may contain grammatical, syntax or spelling errors. Electronically signed by: Darron Esteban M.D. 02/04/2025 12:08 PM Chest X-Ray 02/04/25 10:08 XR chest 1V portable CLINICAL HISTORY: Cough. COMPARISON STUDY: Chest radiograph January 09, 2025. Chest CT January 28, 2025. FINDINGS: Left subclavian pacer/AICD remains in place. Cardiomediastinal silhouette is stable. There is no pneumothorax or pleural effusion. Underlying emphysema is present. Right upper lung densities are unchanged and represent scarring. There is no consolidation to suggest pneumonia. IMPRESSION: No acute cardiopulmonary findings. No change in appearance of the chest. ACT 112: Negative or not required by law. Electronically signed by: Calderon Howe M.D. 02/04/2025 10:30 AM Chest CTA 02/04/25 11:14 CT ANGIOGRAM OF THE CHEST CLINICAL HISTORY: Hypoxia. Evaluate for pulmonary embolus. COMPARISON STUDY: Chest CT January 28, 2025. Chest radiograph performed earlier today. TECHNIQUE: Following the IV administration of 118 cc of Optiray 320, CT angiogram of the chest was performed from the upper abdomen to the thoracic inlet utilizing the pulmonary embolus protocol. Images are reviewed in the axial, sagittal, and coronal planes. 3-D MIPS images are created and assessed. IV contrast was administered without complication. A dose lowering technique was utilized adhering to the principles of ALARA. CT DOSE: 828.15 mGy.cm FINDINGS: A left subclavian pacer/AICD is in place. No pulmonary emboli are identified. There is no thoracic aortic dissection. No pathologically enlarged axillary, mediastinal or hilar lymph nodes are present. Heart is at the upper limits of normal for size. No pericardial effusion. There is no pneumothorax or pleural effusion. Severe emphysema is again noted. The central airways are patent. Linear upper lobe densities are unchanged and favor scarring. Mild interlobular septal thickening is present. A few small nodular opacities measuring up to 6 mm within the left upper lobe have developed since recent CT. Abdomen and pelvis CT will be reported separately. IMPRESSION: 1. No pulmonary emboli identified. 2. Interlobular septal thickening suggestive of mild interstitial pulmonary edema. 3. Severe emphysema. 4. A few nodular opacities within the left upper lobe measuring up to 6 mm which are likely benign. These may be related to pulmonary edema or a mild infectious or inflammatory process such as bronchiolitis. ACT 112: Negative or not required by law. Electronically signed by: Calderon Howe M.D. 02/04/2025 11:52 AM PG Care Time/CCT Total # of Minutes Spent Total Time Spent with Patient: Total time spent is greater than 50% in coordination of care (as documented) at patient's floor/unit and/or counseling patient: Coding Level of Care Code 81321 SUB INP/OBS CARE 2/35MIN Diagnoses Vomiting and diarrhea R11.10; R19.7 Hypoxic respiratory failure J96.91 Chronicity: unspecified Abdominal pain R10.9 Abdominal location: unspecified location Pneumonia J18.9 Laterality: left Lung location: lower lobe of lung Pneumonia type: due to unspecified organism Acute dehydration E86.0 Weakness R53.1 COPD (chronic obstructive pulmonary disease) J44.9 COPD exacerbation J44.1 (2) Hypoxic respiratory failure Chronicity: unspecified Qualified Code(s): J96.91 - Respiratory failure, unspecified with hypoxia (3) Abdominal pain Abdominal location: unspecified location Qualified Code(s): R10.9 - Unspecified abdominal pain (4) Pneumonia Laterality: left Lung location: lower lobe of lung Pneumonia type: due to unspecified organism Qualified Code(s): J18.9 - Pneumonia, unspecified organism
[2025-02-05] MEDS ORDERED: ALBUTEROL 0.083% NEBU SOLN 3 ML VIAL INH PRN (12:09)
[2025-02-05] MEDS: ALBUT/IPRATROP 3MG/0.5MG NEB 3 ML VIAL INH SCH (13:28)
--- NOTE | 2025-02-05 13:57 | Pulmonary Consultation ---
Date of Consultation February 05, 2025 Assessment & Plan (1) Acute respiratory failure with hypoxia: (2) COPD (chronic obstructive pulmonary disease): (3) Chronic sinusitis: (4) Multiple pulmonary nodules determined by computed tomography of lung: Plan 74-year-old female admitted to hospital because of worsening shortness of breath Past medical history: Chronic cervicitis, nonischemic cardiomyopathy s/p AICD, adrenal insufficiency, osteopenia, GERD, dyslipidemia Pulmonary consulted for COPD CTA chest 02/04/2025 personally reviewed: Centrilobular emphysema appreciated bilaterally Linear scarring of the right upper lobe Multiple pulmonary nodules appreciated on the left upper lobe up to 6 mm Minimal dependent atelectasis bilateral lower lobes No significant mediastinal lymphadenopathy PFT 02/05/2024 personally reviewed: Moderate obstructive lung dysfunction, normal TLC, moderate decrease in DLCO FVC 3.14 L 122%, FEV1 1.28 L 66%, FEV1/FVC 41%, RV 86%, TLC 109%, RV/TLC 79%, DLCO 51%, DLCO/VA 51% --Acute hypoxic respiratory failure Respiratory BioFire negative for everything on 02/04/2025 Nasal MRSA negative BNP 57 Does have parrot at home for approximately 40 years. History of chronic sinusitis -- COPD with emphysema On azithromycin Rklwdc-Rnlojdqwu-Gnadhd, QTc 720 on 07/07/2025 Asmanex and formoterol Absolute eosinophil count 560 on 02/04/2025 Does have parrot at home for approximately 40 years. History of chronic sinusitis Patient will be a good candidate for biologic -- Multiple pulmonary nodules Continue with lung screening, next CAT scan will be January 2026 -- Nocturnal hypoxia Uses 2 L oxygen at night Plan: Nebulized bronchodilators while in the hospital. Will add Incruse to her regimen Patient has prolonged QTc, would recommend avoiding QT prolonging medication Discontinue azithromycin on discharge which she takes 3 times daily Complete 7-day course of doxycycline Chlorpheniramine along with venlafaxine can also prolong QTc I do not see any clear signs of pneumonia, okay to discontinue Zosyn if it is given for pulmonary source Would recommend addition of either Spiriva/Incruse or nebulized Yupelri to patient's regimen on discharge Given the elevated eosinophil count montelukast 10 mg will be added to her regimen Consideration for Biologics could be made as an outpatient given the elevated eosinophil count of 560. Will defer to patient's outpatient casing wringer operator. I spent more than 75 minutes looking in the chart, images, discussing the plan of care with the patient, RN as well as primary team Please note the above document was generated using voice recognition software. It may contain grammatical, syntax or spelling errors.Any formal questions or concerns about the content, text or information contained within the body of this dictation should be directly addressed to the provider for clarification. History of Present Illness Attending Physician: Benji Clancy MD History of Present Illness 74-year-old female admitted to hospital because of worsening shortness of breath Past medical history: Chronic cervicitis, nonischemic cardiomyopathy s/p AICD, adrenal insufficiency, osteopenia, GERD, dyslipidemia Pulmonary consulted for COPD Patient follows up with Dr. Dos Santos as an outpatient Patient's was in the room at the time of examination Patient is compliant with her Asmanex inhaler along with nebulized long-acting beta agonist, she only uses ipratropium Has tried Spiriva in the past with no significant benefit. Was complaining of worsening shortness of breathhow she ended up in the hospital She says she is already feeling better compared to before Not on any oxygen at home usually. Periodic cough with clear phlegm. Denies any hemoptysis. No fever or chills prior to coming to the hospital No dysuria, no diarrhea No unusual headache or blurry vision. Social history: Approximately 47-eius-ngke smoking history Has castro at her home for approximately 50 years No history of lung cancer in the family Allergies Allergy/AdvReac Type Severity Reaction Status Date / Time Gadolinium-Containing Allergy Severe WENT INTO Verified 02/04/25 12:27 Contrast Medi SHOCK moxifloxacin [From Avelox] Allergy "didn't Verified 02/04/25 12:27 feel well" midazolam AdvReac Intermediate CONFUSION Verified 02/04/25 12:27 AND DECREASED BP Home Medications Medication Instructions Recorded Confirmed Type ascorbic acid (vitamin C) 500 mg 500 mg PO HS 09/05/21 02/04/25 History capsule Oxygen Home #1 L 01/13/23 01/12/25 Rx chlorpheniramine maleate 4 mg 4 mg PO DAILY Runny Nose 04/10/23 02/04/25 History tablet (ChlorTabs) carvedilol 3.125 mg tablet (Coreg) 3.125 mg PO QAM 11/04/23 02/04/25 History carvedilol 6.25 mg tablet 6.25 mg PO QAM 11/04/23 02/04/25 History metronidazole 0.75 % topical cream 1 applic topical BID PRN Flare 04/09/24 02/04/25 History bupropion HCl 300 mg 24 hr tablet, 300 mg PO QAM #90 tabs 05/10/24 02/04/25 Rx extended release carvedilol 12.5 mg tablet 12.5 mg PO HS 05/10/24 02/04/25 History syringe with needle 3 mL 23 x 1" #50 ea 07/21/24 01/12/25 Rx (BD Eclipse Luer-Adam) azithromycin 250 mg tablet 250 mg PO 3XWK #36 tabs 07/26/24 02/04/25 Rx dabigatran etexilate 150 mg 150 mg PO BID 09/07/24 02/04/25 History capsule (Pradaxa) ipratropium bromide 0.02 % 0.5 mg (2.5 mL) inhalation BID 10/12/24 02/04/25 Rx solution for inhalation #450 mL simvastatin 20 mg tablet 20 mg PO HS #90 tabs 10/20/24 02/04/25 Rx mometasone 220 mcg/actuation(120 2 inh inhalation BID #3 Inhalers 11/30/24 02/04/25 Rx doses)breath activated powder inhaler (Asmanex Twisthaler) Saccharomyces boulardii 250 mg 250 mg PO DAILY 01/12/25 02/04/25 History capsule (Daily Probiotic (S. boulardii)) arformoterol 15 mcg/2 mL solution 2 ml inhalation BID #360 mL 01/12/25 02/04/25 Rx for nebulization (Brovana) calcium carbonate (Calcium 500) 600 mg PO QAM 01/12/25 02/04/25 History ipratropium 0.5 mg-albuterol 3 mg 3 ml inhalation Q6H PRN wheezing 01/12/25 02/04/25 Rx (2.5 mg base)/3 mL nebulization #180 mL soln ipratropium 20 mcg-albuterol 100 1 puff inhalation Q6H #4 grams 01/12/25 02/04/25 Rx mcg/actuation mist for inhalation (Combivent Respimat) vxcupynt-gbh-chmqn acid 0.4 1 tab PO DAILY 01/12/25 02/04/25 History mg-lycopene 300 mcg-lutein 250 mcg tablet (Complete Multivitamin Adult 50 Plus) nicotine (polacrilex) 4 mg gum 4 mg buccal Q2H 01/12/25 02/04/25 History (Nicorette) sodium chloride 7 % for 1 inh inhalation BID PRN Shortness 01/12/25 02/04/25 History nebulization Of Breath Or Wheezing vitamin B complex 1 cap PO QAM 01/12/25 02/04/25 History famotidine 20 mg tablet 20 mg PO DAILY 01/17/25 02/04/25 History ondansetron HCl 4 mg tablet 4 mg PO Q8H PRN nausea and 01/17/25 02/04/25 Rx vomiting #30 tabs dexamethasone sodium phosphate 4 4 mg IM ONCE PRN adrenal crisis #3 01/18/25 02/04/25 Rx mg/mL injection solution vials venlafaxine 150 mg 150 mg PO QAM #90 caps 01/24/25 02/04/25 Rx capsule,extended release 24 hr lisinopril 20 mg tablet 20 mg PO BID 02/04/25 02/04/25 History prednisone 1 mg tablet 0 mg PO QAM 02/04/25 02/04/25 History prednisone 2.5 mg tablet 0 mg PO QAM 02/04/25 02/04/25 History prednisone 5 mg tablet 15 mg PO QAM 02/04/25 02/04/25 History pantoprazole 40 mg tablet,delayed 40 mg PO QAM #14 tabs 02/05/25 Rx release prednisone 10 mg tablet 60 mg (6 x 10 mg) PO DAILY 10 days 02/05/25 Rx #60 tabs doxycycline hyclate 100 mg capsule 100 mg PO BID #10 caps 02/06/25 Rx montelukast 10 mg tablet 10 mg PO HS 30 days #30 tabs 02/06/25 Rx Patient History Medical History (Updated 02/05/25 @ 16:37 by Yann Horner MD, [facility]) Adrenal insufficiency Vomiting and diarrhea Adrenal insufficiency Leg pain, bilateral Hordeolum of left eye Forgetfulness Tremor Acute DVT (deep venous thrombosis) Elevated troponin Leukocytosis Acute leg pain COVID JACOB (dyspnea on exertion) Serum calcium elevated Wound of right upper extremity Joint pain Headache Rib fracture Facial dermatitis Rash Vocal cord nodule "LUMP ON VOCAL CORD" - REPORTED REASON FOR UPCOMING SURGERY BY PT History of ischemic colitis Thyroid cyst SOBOE (shortness of breath on exertion) Ovarian cyst, bilateral Ovarian cyst Lung nodule NOT MENTIONED BY PT DURING PAT CALL Lesion of vocal fold Hoarseness of voice PT DENIES TROUBLE SWALLOWING Cough 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 Had ICD inserted in 06/2009, but EF has recovered to ~50% per patient and as of 2017. COPD (chronic obstructive pulmonary disease) 60 pack-year smoker; quit ~1999; nebulizers daily Surgical History History of biopsy THYROID History of cerebral aneurysm repair "coil" 2006 Status post excision of vocal cord nodule had ulceration on vocal cords- biopsy done- benign History of anesthesia reaction with Versed during brochoscopy--confusion and decrease in BP Nausea and vomiting after administration of anesthetic agent History of bilateral tubal ligation History of dilatation and curettage History of carpal tunnel release of both wrists History of esophagogastroduodenoscopy (EGD) History of colonoscopy 2 polyps removed History of appendectomy History of tooth extraction wisdom teeth History of tonsillectomy S/P thyroid biopsy benign History of endoscopic sinus surgery History of bilateral cataract extraction History of cardiac cath x1--2009 @ [facility]/2011 @ [facility] [place]--no stents History of bronchoscopy x6 S/P coil embolization [place] [facility] [place] ICD (internal cardiac defibrillator) procedure 2007 Family History Brother Cardiomyopathy Sister Cardiomyopathy Bipolar disorder Grandfather (Maternal) Family hx of colon cancer Mother Kidney disease Bipolar disorder Father Prostate cancer Aunt Myocardial infarction Aunt Breast cancer Unknown Allergies FHx: deafness or hearing loss Cardiac disorder Sinusitis Other No family history of bleeding disorder Social History (Reviewed 01/17/25 @ 15:28 by CHRIS Stark Smoking Status: Former smoker Tobacco Type: Cigarettes Age Started Using Tobacco: 14; Age Quit Using Tobacco: 48; packs per day: 2; Second Hand Exposure: No; Do You Dip or Chew Tobacco: No; Hx Alcohol Use: No Hx Substance Use: No Preferred Language: Malay Communication Ability: Effective Visual Impairment: No Limitations Hearing Ability: Normal Field Map Editor Required: No Beliefs That Will Affect Care: None marital status: Current Living Situation: Spouse current occupational status: retired Feels Safe at Home: Yes Childhood Exposure to Second-Hand Smoke: Yes Dental Care, Regularly: Yes Physical Activity Frequency: Daily Seatbelt Use: always Sunscreen Use: Yes Assistive Devices: Oxygen - Continuous and Stair Lift Review of Systems 2 Review of Systems: All systems reviewed & are unremarkable except as noted in Subjective Physical Exam 2 Physical Exam: Constitutional: No acute distress HEENT: EOMI, PERRLA Respiratory system: Decreased air entry bilaterally, no wheeze, no rhonchi, positive crackles bilateral lower lobes more on the left side CVS: S1-S2 positive, no murmurs or gallops Abdomen: Soft, nontender, nondistended, positive bowel sounds x4 Extremities: +2 pulses bilaterally radialis/ dorsalis pedis, no cyanosis, no edema Neuro: Awake alert oriented x3 Psych: Normal mood and affect G/U: No Rodriguez Skin: no rashes, warm and dry Lymphatic: no cervical or axillary lymphadenopathy Results & Data Results & Data Vital Signs (Past 12 Hours) Vital Signs Temp Pulse Pulse Resp BP BP Pulse Ox 02/05/25 13:30 78 16 98 02/05/25 11:15 36.4 C L 82 18 142/81 H 94 02/05/25 10:37 96 02/05/25 08:09 36.5 C 84 19 152/77 H 95 02/05/25 08:00 82 02/05/25 07:57 02/05/25 06:30 16 96 02/05/25 03:08 78 L 02/05/25 03:00 36.3 C L 80 18 134/70 78 L O2 Del Method O2 Flow Rate 02/05/25 13:30 Nasal Cannula 2 02/05/25 11:15 Nasal Cannula 2 02/05/25 10:37 Nasal Cannula 2 02/05/25 08:09 Nasal Cannula 3 02/05/25 08:00 02/05/25 07:57 Nasal Cannula 3 02/05/25 06:30 Nasal Cannula 2 02/05/25 03:08 Nasal Cannula 0 02/05/25 03:00 Nasal Cannula Laboratory Results 02/05/25 05:35 02/05/25 05:35 PG Care Time/CCT Total # of Minutes Spent Total Time Spent with Patient: Total time spent is greater than 50% in coordination of care (as documented) at patient's floor/unit and/or counseling patient: Coding Level of Care Code 44863 INT INP/OBS CARE 3/75MIN Diagnoses Acute respiratory failure with hypoxia J96.01 COPD (chronic obstructive pulmonary disease) J44.9 Chronic sinusitis J32.9 Multiple pulmonary nodules determined by computed tomography of lung R91.8
[2025-02-05] MEDS: BUDESONIDE 0.5 MG/2 ML VIAL (PULMICORT) NEB SCH (19:37)
[2025-02-05] MEDS: MONTELUKAST SODIUM 10 MG TABLET PO SCH (20:21)
[2025-02-06 06:05] LABS: Hematocrit (blood only) 36.8 % (37.0-47.0); Hemoglobin 12.2 g/dl (12.0-16.0); Mean Corpuscular Hemoglobin 33.7 pg (25.0-34.0); Mean Corpuscular Volume 101.7 fL (80.0-100.0); Platelet Count 308 K/uL (130-400); RDW Standard Deviation 47.7 fL (36.4-46.3); Red Blood Count 3.62 M/uL (4.20-5.40); White Blood Count 16.02 K/ul (4.8-10.8)
[2025-02-06 06:24] LABS: Alanine Aminotransferase 16.0 U/L (7-52); Albumin Globulin Ratio 1.4 (0.9-2); Alkaline Phosphatase 49.0 U/L (34-104); Anion Gap 6.0 (3-11); Bilirubin,Total 0.4 mg/dl (0.2-1.0); Blood Urea Nitrogen 18.0 mg/dl (6-23); Calcium 9.5 mg/dl (8.6-10.3); Carbon Dioxide 29.0 mmol/L (21-32); Chloride 108.0 mmol/L (98-107); Creatinine Clr Calc Pharmacy 59.5 ml/min; Globulin 2.5 gm/dl (2.5-4.0); Glucose 123.0 mg/dl (70-99(Fasting)); Potassium 4.3 mmol/L (3.5-5.1); Sodium 143.0 mmol/L (136-145); Total Protein 6.0 gm/dl (6.0-8.3)
[2025-02-06 08:24] VITALS: TEMP 97.5
--- NOTE | 2025-02-06 09:16 | Pulmonology Progress Note ---
Date of Service February 06, 2025 Assessment & Plan (1) Acute respiratory failure with hypoxia: (2) COPD (chronic obstructive pulmonary disease): (3) Chronic sinusitis: (4) Multiple pulmonary nodules determined by computed tomography of lung: Plan 74-year-old female admitted to hospital because of worsening shortness of breath Past medical history: Chronic cervicitis, nonischemic cardiomyopathy s/p AICD, adrenal insufficiency, osteopenia, GERD, dyslipidemia Pulmonary consulted for COPD CTA chest 02/04/2025 personally reviewed: Centrilobular emphysema appreciated bilaterally Linear scarring of the right upper lobe Multiple pulmonary nodules appreciated on the left upper lobe up to 6 mm Minimal dependent atelectasis bilateral lower lobes No significant mediastinal lymphadenopathy PFT 02/05/2024 personally reviewed: Moderate obstructive lung dysfunction, normal TLC, moderate decrease in DLCO FVC 3.14 L 122%, FEV1 1.28 L 66%, FEV1/FVC 41%, RV 86%, TLC 109%, RV/TLC 79%, DLCO 51%, DLCO/VA 51% --Acute hypoxic respiratory failure Respiratory BioFire negative for everything on 02/04/2025 Nasal MRSA negative BNP 57 Does have parrot at home for approximately 40 years. History of chronic sinusitis -- COPD with emphysema On azithromycin Hnewqv-Rqikcjnei-[id number], QTc 720 on 07/07/2025 Asmanex and formoterol Absolute eosinophil count 560 on 02/04/2025 Does have parrot at home for approximately 40 years. History of chronic sinusitis Patient will be a good candidate for biologic -- Multiple pulmonary nodules Continue with lung screening, next CAT scan will be January 2026 -- Nocturnal hypoxia Uses 2 L oxygen at night Plan: Nebulized bronchodilators while in the hospital. Patient has prolonged QTc, would recommend avoiding QT prolonging medication Discontinue azithromycin on discharge which she takes 3 times daily Complete 7-day course of doxycycline Chlorpheniramine along with venlafaxine can also prolong QTc I do not see any clear signs of pneumonia, okay to discontinue Zosyn if it is given for pulmonary source Would recommend addition of either Spiriva/Incruse or nebulized Yupelri to patient's regimen on discharge Continue with montelukast 10 mg on a daily basis Consideration for Biologics could be made as an outpatient given the elevated eosinophil count of 560. Will defer to patient's outpatient cushion cover inspector. Case discussed with RN and primary team Please note the above document was generated using voice recognition software. It may contain grammatical, syntax or spelling errors.Any formal questions or concerns about the content, text or information contained within the body of this dictation should be directly addressed to the provider for clarification. Admission and Anticipated Discharge Date Admission Date: February 04, 2025 Subjective Patient seen and bedside. No acute distress, no adverse events overnight She was saturating 88-89% on 1 L oxygen at rest Overall she stated she is feeling better Denied any chest pain Coughing up clear phlegm No hemoptysis Fair appetite Was excited that she is going home today Review of Systems 2 Review of Systems: All systems reviewed & are unremarkable except as noted in Subjective Physical Exam 2 Physical Exam: Constitutional: No acute distress HEENT: EOMI, PERRLA Respiratory system: Decreased air entry bilaterally, no wheeze, no rhonchi, positive crackles bilateral lower lobes more on the left side CVS: S1-S2 positive, no murmurs or gallops Abdomen: Soft, nontender, nondistended, positive bowel sounds x4 Extremities: +2 pulses bilaterally radialis/ dorsalis pedis, no cyanosis, no edema Neuro: Awake alert oriented x3 Psych: Normal mood and affect G/U: No Rodriguez Skin: no rashes, warm and dry Lymphatic: no cervical or axillary lymphadenopathy Results & Data Results & Data Vital Signs (Past 12 Hours) Vital Signs Temp Pulse Pulse Resp BP Pulse Ox O2 Del Method 02/06/25 08:23 36.4 C L 81 18 185/84 H 90 Nasal Cannula 02/06/25 07:59 Nasal Cannula 02/06/25 07:09 85 18 96 Nasal Cannula 02/06/25 03:00 36.5 C 81 18 141/71 H 94 Nasal Cannula 02/06/25 00:53 82 18 91 Nasal Cannula 02/06/25 00:18 89 02/05/25 23:53 85 L Nasal Cannula 02/05/25 23:08 36.6 C 89 16 149/81 H 94 Nasal Cannula 02/05/25 22:29 Nasal Cannula O2 Flow Rate 02/06/25 08:23 1 02/06/25 07:59 2 02/06/25 07:09 1 02/06/25 03:00 02/06/25 00:53 1 02/06/25 00:18 07/26/25 23:53 1 02/05/25 23:08 02/05/25 22:29 1 Laboratory Results 02/06/25 05:25 02/06/25 05:25 PG Care Time/CCT Total # of Minutes Spent Total Time Spent with Patient: Total time spent is greater than 50% in coordination of care (as documented) at patient's floor/unit and/or counseling patient: Coding Level of Care Code 81149 SUB INP/OBS CARE 2/35MIN Diagnoses Acute respiratory failure with hypoxia J96.01 COPD (chronic obstructive pulmonary disease) J44.9 Chronic sinusitis J32.9 Multiple pulmonary nodules determined by computed tomography of lung R91.8
[2025-02-06 09:40] VITALS: BP 142/81
[2025-02-06] MEDS: UMECLIDINIUM BROMIDE 62.5MCG/BLISTER 7 PUFFS/INHALER INH SCH (10:00)
--- NOTE | 2025-02-06 10:27 | Discharge Summary ---
Discharge Summary Date of Service February 06, 2025 Principal Dx & Hospital Course #1 = Principal Diagnosis (1) Vomiting and diarrhea: (2) Hypoxic respiratory failure: (3) Abdominal pain: (4) Pneumonia: (5) Acute dehydration: (6) Weakness: (7) COPD (chronic obstructive pulmonary disease): (8) COPD exacerbation: Plan Subjective: Doing very well energetic in good spirits really wants to go home. Breathing has significantly improved on 1 L O2 Walking around to the bathroom [id number] without any issues. She does not feel therapy needs to see her here. Discussed with patient and on the phone extensively regarding all aspects of care for 30 to 40 minutes they were very appreciative. We discussed importance of close blood pressure monitoring at home. tells me her blood pressure is always high in the hospital 170s 180s and then goes back to 120s at home so we discussed monitoring it and checking with PCP if uncontrolled.Discussed QT prolongation and significant risk including for cardiac arrest they understand all medications discontinued. They will touch base with PCP on Friday to consider alternative antidepressant. We discussed risk of montelukast with depression/suicide ideation. Billiard Table Repairer recommends Incruse Ellipta however there is a severe contraindication with patient's current ipratropium. Discharge instructions placed to follow-up closely with PCP/lung doctor to discuss this. White count elevated likely secondary to steroids Discussed with RN extensively. She does not feel there are any barriers to discharge from her standpoint. She does not feel therapy needs to see the patient d/w Lung doctor via secure chat regarding holding the Incruse With concern for possible adverse reaction with ipratropium and having the patient speak with her doctors on Friday he agrees Assessment and plan: 74 female history severe COPD on 2 L O2, pneumonia multiple times in the past with recent hospitalization a few weeks weeks [employer] for same, DVT on Pradaxa, brain aneurysm, Nonischemic cardiomyopathy EF 45 Status post AICD, Adrenal insufficiency, osteopenia, may Thurner syndrome, osteopenia vitamin D deficiency B12 deficiency multinodular goiter GERD hyperlipidemia hemochromatosis bronchiectasis Depression hypertension migraines who presents with her with worsening shortness of breath, productive cough, headache and sinus pain, generalized weakness fatigue malaise, nausea vomiting abdominal pain and diarrhea over the past few days. She has been feeling rundown since her discharge for recent pneumonia. COPD exacerbation Steroids taper as tolerated. Bronchodilators. Close outpatient follow-up with draw off worker Questionable HCAP CT with questionable bronchiolitis no clear infiltrates however clinical presentation is concerning for evolving infection and considering recent hospitalization and high risk, will treat empirically with antibiotics initially Pulmonary toilet as needed IV Zosyn discontinued per lung doctor low suspicion of pneumonia. Doxycycline continued total 10 days and reassess outpatient Respiratory infectious workup NTD Acute on Chronic hypoxic respiratory failure Resolved Wean O2 sat goal 88-94 Sinusitis nausea vomiting abdominal pain diarrhea improving suspect Viral etiology Supportive care Eosinophilia Has parrot home. Montelukast added by pulmonary. They recommend consideration for biological agent outpatient Hypokalemia Replete as needed History of DVT Continue Pradaxa History cardiomyopathy EF 45 No evidence of decompensation. Monitor Incidental renal/hepatic cysts, paraesophageal varicosities and mild esophageal wall thickening Outpatient follow-up Generalized weakness PT OT GI steroid prophylaxis DVT prophylaxis as above Full code Disposition Anticipate discharge home in 2 to 3 days Possibly with home health Admission HPI Per Admitting Provider 74 female history severe COPD on 2 L O2, pneumonia multiple times in the past with recent hospitalization a few weeks weeks [employer] for same, DVT on Pradaxa, brain aneurysm, Nonischemic cardiomyopathy EF 45 Status post AICD, Adrenal insufficiency, osteopenia, may Thurner syndrome, osteopenia vitamin D deficiency B12 deficiency multinodular goiter GERD hyperlipidemia hemochromatosis bronchiectasis Depression hypertension migraines who presents with her with worsening shortness of breath, productive cough, headache and sinus pain, generalized weakness fatigue malaise, nausea vomiting abdominal pain and diarrhea over the past few days. She has been feeling rundown since her discharge for recent pneumonia. Her nausea vomiting and diarrhea have subsided. No fevers chills pleuritic or other chest pain lightheadedness blood in stool symptoms or any other symptoms. at bedside. We discussed everything extensively they are very appreciative. She feels better since arrival breathing has improved after receiving steroids and nebs. Discussed with ED physician. His impression is COPD exacerbation and generalized weakness. Discharge Exam Constitutional WD/WN, vitals as above Cardiovascular RRR, no murmur, no edema Psychiatric A+Ox3, euthymic affect Discharge Plan Discharge Items Patient Disposition: Home - Self-Care Reason For Visit: COPD AE Discharge Diagnosis: copd AE Condition on Discharge: Fair Activity: Resume your previous activity Non-emergency contact: Primary Care Provider and Billiard Table Repairer Call non-emergency contact if: you have any medication questions, your symptoms worsen and you have a fever Follow-up/Referrals: Nurys Blanchard MD [Primary Care Provider] - (Call the office on Friday to schedule a hospital follow up appointment) Diet: Low Sodium (2gm) Addtl Attending Provider Instructions: Follow-up with your primary care doctor lung doctor in 3 to 5 days. Please monitor blood pressure closely at home. Monitor oxygen sat again the goal is oxygen saturation 88 to 94% can use 1 to 2 L as needed to keep in this range. As of now she only needs 1 L. QTc is dangerously high around 700 therefore azithromycin, chlorpheniramine, venlafaxine have been held please discuss with your primary doctor. May need another antidepressant. As we discussed initiated montelukast that has a risk of causing depression/suicide thoughts. LUNG DOCTOR HERE HAS RECOMMENDED STARTING AN INHALER LUNG MEDICATION CALLED " INCRUSE ELLIPTA (UMECLIDINIUM)" HOWEVER THERE IS A CONCERN FOR ADVERSE REACTION WITH YOUR CURRENT MEDICATION (IPRATROPRIUM). PLEASE TOUCH BASE WITH YOUR PRIMARY DOCTOR AND LUNG DOCTOR IN 1-2 DAYS TO DISCUSS HOW TO PROCEED WITH THIS RECOMMENDATION. Pending Studies at Discharge: No Stand-Alone Forms: My [facility] [employer], Smoking Cessation Medications and DC Order Prescriptions: New pantoprazole 40 mg Tablet,Delayed Release (Dr/Ec) 40 mg PO QAM Qty: 14 0RF prednisone 10 mg tablet 60 mg PO DAILY 10 Days Qty: 60 0RF Rx Instructions: 60 mg daily X 3 days then 40 mg daily X 3 days then 20mg daily X 3 days then 10mg daily X 3 days doxycycline hyclate 100 mg Capsule 100 mg PO BID Qty: 10 0RF montelukast 10 mg Tablet 10 mg PO HS 30 Days Qty: 30 0RF Continued bupropion HCl 300 mg tablet extended release 24 hr 300 mg PO QAM Qty: 90 3RF (DME) BD Eclipse Luer-Adam 3 mL 23 x 1" syringe See Rx Instructions .ROUTE .MEDSUPPLY Qty: 50 0RF Rx Instructions: Use to inject solu medrol as needed ipratropium bromide 0.02 % solution 0.5 mg inhalation BID Qty: 450 3RF Rx Instructions: USE 1 VIAL TWICE DAILY VIA NEBULIZER simvastatin 20 mg tablet 20 mg PO HS Qty: 90 3RF Asmanex Twisthaler 220 mcg/ actuation (120) aerosol powdr breath activated 2 inh inhalation BID Qty: 3 2RF dexamethasone sodium phosphate 4 mg/mL solution 4 mg IM ONCE PRN (Reason: adrenal crisis) Qty: 3 0RF Rx Instructions: use 4 mg once for emergency ascorbic acid (vitamin C) 500 mg capsule 500 mg PO HS Rx Instructions: Unable to verify OTC meds with patient/family at this date/time. dabigatran etexilate [Pradaxa] 150 mg capsule 150 mg PO BID (DME) Oxygen Home Liters Per Minute See Rx Instructions .ROUTE .MEDSUPPLY Qty: 1 0RF Rx Instructions: Home oxygen concentrator with portability. 2 L via nasal cannula. Length of need 99 years. carvedilol 12.5 mg tablet 12.5 mg PO HS Rx Instructions: takes in evening metronidazole 0.75 % cream 1 applic topical BID PRN (Reason: Flare) famotidine 20 mg tablet 20 mg PO DAILY ondansetron HCl 4 mg tablet 4 mg PO Q8H PRN (Reason: nausea and vomiting) Qty: 30 0RF arformoterol [Brovana] 15 mcg/2 mL solution for nebulization 2 ml inhalation BID Qty: 360 2RF Rx Instructions: Nebulized med calcium carbonate [Calcium 500] 500 mg calcium (1,250 mg) tablet,chewable 600 mg PO QAM Combivent Respimat 20-100 mcg/actuation mist 1 puff inhalation Q6H Qty: 4 2RF Rx Instructions: REPORTED BY SPOUSE - nicotine (polacrilex) [Nicorette] 4 mg gum 4 mg buccal Q2H Saccharomyces boulardii [Daily Probiotic (S. boulardii)] 250 mg capsule 250 mg PO DAILY vitamin B complex Capsule 1 cap PO QAM Complete MV Adult 50 Plus 0.4 mg-300 mcg- 250 mcg tablet 1 tab PO DAILY sodium chloride 7 % solution for nebulization 1 inh inhalation BID PRN (Reason: Shortness Of Breath Or Wheezing) Rx Instructions: EREPORTED BY SPOUSE. ONLY NEEDED ipratropium-albuterol 0.5 mg-3 mg(2.5 mg base)/3 mL solution for nebulization 3 ml inhalation Q6H PRN (Reason: wheezing) Qty: 180 3RF carvedilol 6.25 mg tablet 6.25 mg PO QAM Rx Instructions: Take 6.25mg w/ 3.125mg to equal 9.375mg by mouth every morning carvedilol [Coreg] 3.125 mg tablet 3.125 mg PO QAM Rx Instructions: Take 3.125mg w/ 6.25mg to equal 9.375mg by mouth every morning lisinopril 20 mg tablet 20 mg PO BID Discontinued azithromycin 250 mg tablet 250 mg PO 3XWK Qty: 36 3RF Hold Instructions: Resume on 01/17/25. resume once other antibiotics are completed Rx Instructions: Friday/Friday/Friday venlafaxine 150 mg capsule,extended release 24hr 150 mg PO QAM Qty: 90 1RF chlorpheniramine maleate [ChlorTabs] 4 mg tablet 4 mg PO DAILY Patient Comments: takes 1 every morning Rx Instructions: do not exceed 2 doses per 24 hrs prednisone 5 mg tablet 15 mg PO QAM Patient Comments: Pt is currently taking 15mg by mouth every morning as directed during times of stress per Spouse. Will move back to taking 5mg w/ 1mg w/ 2.5mg tablet to equal 8.5mg by mouth every morning once high stress is down. - 02/04/25 Rx Instructions: Pt is currently taking 15mg by mouth every morning as directed during times of stress per Spouse. Will move back to taking 5mg w/ 1mg w/ 2.5mg tablet to equal 8.5mg by mouth every morning once high stress is down. - 02/04/25 prednisone 1 mg tablet 0 mg PO QAM Patient Comments: Pt is currently taking 15mg by mouth every morning as directed during times of stress per Spouse. Will move back to taking 5mg w/ 1mg w/ 2.5mg tablet to equal 8.5mg by mouth every morning once high stress is down. - 02/04/25 Rx Instructions: Pt is currently taking 15mg by mouth every morning as directed during times of stress per Spouse. Will move back to taking 5mg w/ 1mg w/ 2.5mg tablet to equal 8.5mg by mouth every morning once high stress is down. - 02/04/25 prednisone 2.5 mg tablet 0 mg PO QAM Patient Comments: Pt is currently taking 15mg by mouth every morning as directed during times of stress per Spouse. Will move back to taking 5mg w/ 1mg w/ 2.5mg tablet to equal 8.5mg by mouth every morning once high stress is down. - 02/04/25 Rx Instructions: Pt is currently taking 15mg by mouth every morning as directed during times of stress per Spouse. Will move back to taking 5mg w/ 1mg w/ 2.5mg tablet to equal 8.5mg by mouth every morning once high stress is down. - 02/04/25 Discharge Orders: Discharge Order (Routine); Ordered 02/06/25 Ordered By: Benji Clancy Admission Data Admit Date/Time: 02/04/25 14:01 Attending Provider: Benji Clancy Admit Provider: Benji Clancy Primary Care Provider: Nurys Blanchard V. Other Providers: Benji Clancy; Saud Dos Santos; Mir Smith; Yann Horner; Romi Ogden; Florentin Ang; Clare Funez Other Interventions: Discharge Summary Assessment (RN) Last Done: 02/06/25 09:38 Hospital Stay Data Consultations 02/04/25 12:22 ED Decision to Admit Stat 02/05/25 12:00 Consult Pulmonology Routine Diagnostic Imagining Performed 02/04/25 10:08 CT abd pelvis IV con only Stat 02/04/25 11:14 CT angio chest PE protocol Stat Pending Results Patient Have Any Pending Studies at Discharge: No Discharge Instructions Given to Patient (Per Discharging Provider) Follow-up with your primary care doctor lung doctor in 3 to 5 days. Please monitor blood pressure closely at home. Monitor oxygen sat again the goal is oxygen saturation 88 to 94% can use 1 to 2 L as needed to keep in this range. As of now she only needs 1 L. QTc is dangerously high around 700 therefore azithromycin, chlorpheniramine, venlafaxine have been held please discuss with your primary doctor. May need another antidepressant. As we discussed initiated montelukast that has a risk of causing depression/suicide thoughts. LUNG DOCTOR HERE HAS RECOMMENDED STARTING AN INHALER LUNG MEDICATION CALLED "INCRUSE ELLIPTA (UMECLIDINIUM)" HOWEVER THERE IS A CONCERN FOR ADVERSE REACTION WITH YOUR CURRENT MEDICATION (IPRATROPRIUM). PLEASE TOUCH BASE WITH YOUR PRIMARY DOCTOR AND LUNG DOCTOR IN 1-2 DAYS TO DISCUSS HOW TO PROCEED WITH THIS RECOMMENDATION. Total Time Total Time Spent Total Time Spent (In Minutes): 35 Coding Level of Care Code 61025 INP/OBS DISCH >30 MIN Diagnoses Vomiting and diarrhea R11.10; R19.7 Hypoxic respiratory failure J96.91 Chronicity: unspecified Abdominal pain R10.9 Abdominal location: unspecified location Pneumonia J18.9 Laterality: left Lung location: lower lobe of lung Pneumonia type: due to unspecified organism Acute dehydration E86.0 Weakness R53.1 COPD (chronic obstructive pulmonary disease) J44.9 COPD exacerbation J44.1
[2025-02-06 10:54] VITALS: PULSE 91; RESP 16; O2SAT 94
[2025-02-07] MEDS ORDERED: AZITHROMYCIN 250 MG TAB PO SCH (09:00)
== END 2025-02-06 12:06 | disposition home or self-care (01) | DRG 189 ==
LOC: SUATTDRO → ED 09:50 → 4W 14:01